=== PATIENT | male | born 1940 | race Caucasian/White ===

== ENCOUNTER 2016-05-10 19:58 | Observation (INO) ==
[2016-05-10] MEDS ORDERED: 0.9 % Sodium Chloride 500 ML IVC ONE (20:59)
[2016-05-10] MEDS ORDERED: Lidocaine Jelly 11 ml Syringe TP ONE (21:21)
--- NOTE | 2016-05-10 21:39 | Emergency Department Note ---
Disposition Clinical Impression: Hematuria, Urinary retention Disposition: Admitted As Inpatient Condition: Good Male Urogenital HPI - General Chief complaint: ED Urogenital-Male Stated complaint: Blood clots in urine Time Seen by Provider: 05/10/16 20:11 Source: patient Mode of arrival: private vehicle Limitations: no limitations Nursing Notes Reviewed: Yes Vital Signs Reviewed: Yes - History of Present Illness HPI Narrative: 75-year-old male history of recently diagnosed bladder cancer who presents to the ER with a chief complaint of difficulty voiding and hematuria. Patient reports he has had difficulty initiating a stream since this morning. He states he was able to pass a small amount at home but was otherwise passing clots. He reports he was diagnosed with bladder cancer after having a scope to try to extract a kidney stone. Patient has had chemotherapy Gonzalez treatments but has not started weekly chemotherapy yet. He denies being on any anticoagulation. No history of easy bleeding in the past. No other complaints. Pt Subjective Complaint: other (Hematuria) Onset (ago): hour(s) Duration: intermittent Radiation: abdomen (Suprapubic) Severity: mild Quality: aching Improves with: none Worsens with: none other (Bladder cancer) Reports: urinary retention, hematuria. Denies: discharge, dysuria - Related Data Home Medications Medication Instructions Recorded Confirmed Glucosamine/D3/Boswellia Cris 1 each PO DAILY 03/09/16 05/11/16 [Osteo Bi-Flex Tablet] Lansoprazole [Prevacid] 30 mg PO DAILY 03/09/16 05/11/16 Metformin HCl [Glucophage] 1,000 mg PO BID 03/09/16 05/11/16 Multivitamin [Multi-Day Vitamins] 1 each PO DAILY 03/09/16 05/11/16 Polyethylene Glycol 3350 [MiraLAX] 17 gm PO DAILY 03/09/16 05/11/16 Ubidecarenone [Co Q-10] 100 mg PO DAILY 03/09/16 05/11/16 Gabapentin [Neurontin] 300 mg PO TID 04/20/16 05/11/16 Glimepiride [Amaryl] 4 mg PO DAILY 04/20/16 05/11/16 Lisinopril [Zestril] 20 mg PO DAILY 04/20/16 05/11/16 Red Yeast Rice 600 mg PO DAILY 04/20/16 05/11/16 Previous Rx's Medication Instructions Recorded HYDROcodone/Acet 5/325 mg [[place] 2 tab PO Q4H PRN #16 tablet 04/20/16 5-325 mg] Oxybutynin [Ditropan] 5 mg PO TID PRN #90 tablet 05/12/16 Allergies Allergy/AdvReac Type Severity Reaction Status Date / Time Penicillins Allergy Hives Verified 05/10/16 20:03 All systems ED: reviewed and negative except as stated. Cardiovascular: Denies: chest pain Respiratory: Denies: cough, dyspnea Gastrointestinal: Reports: abdominal pain (Suprapubic). Denies: nausea, vomiting, melena, hematochezia Genitourinary: Reports: frequency (Decreased frequency), hematuria, other ( Urinary retention) Past Medical History - Past Medical History Attestation: Yes The following information was validated with the patient. Source: patient Medical history: Reports: cancer, diabetes, GERD, hyperlipidemia, hypertension, kidney stones, other Surgical history: Reports: cataract Psychiatric history: Reports: no psych history - Social History Smoking Status: Never smoker Smokeless Tobacco Status: No Alcohol use: Reports: none Drug use: Reports: none Physical Exam - General Limitations: no limitations General appearance: alert, in no apparent distress - Head Head exam: atraumatic, normocephalic, normal inspection - Eye Eye exam: Present: normal appearance, EOMI - ENT ENT exam: normal exam - Neck Neck exam: Present: normal inspection - Chest Chest inspection: Present: normal inspection, symmetric chest wall rise - Respiratory Respiratory exam: Present: normal lung sounds bilaterally - Cardiovascular Cardiovascular exam: Present: regular rate, normal rhythm, normal heart sounds - Abdominal Exam Abdominal Exam: Present: soft, tenderness (Mild tenderness to palpation in the suprapubic region.). Absent: distention, rigidity Abdominal Tenderness: Present: suprapubic - Extremities Exam Extremities exam: Present: normal inspection, full ROM - Expanded Upper Extremity Exam Shoulder exam: Present: normal inspection, full ROM Arm exam: Present: normal inspection, full ROM Elbow exam: Present: normal inspection, full ROM Forearm/Wrist exam: Present: normal inspection, full ROM Hand exam: Present: normal inspection, full ROM - Expanded Lower Extremity Exam Hip/Pelvis exam: Present: normal inspection, full ROM Upper leg exam: Present: normal inspection, full ROM Knee exam: Present: normal inspection, full ROM Lower leg exam: Present: normal inspection, full ROM Ankle exam: Present: normal inspection, full ROM Foot/toe exam: Present: normal inspection, full ROM - Neurological Exam Neurological exam: Present: alert - Psychiatric Psychiatric exam: Present: normal affect, normal mood - Skin Skin exam: Present: warm, dry, intact, normal color Course Course Narrative: Patient seen and examined. Vital signs reviewed. Bedside ultrasound demonstrates a mass versus clot in his bladder. Patient was unable to produce any urine here with 3 mL of sanguinous fluid. We will place a 3-way Gonzalez and discuss with urology for further management. - Reevaluation(s) Reevaluation #1: After 3 L of bladder irrigation patient still has grossly bloody urine output. His urinalysis does not show UTI. - Consultations Consultation #1: Case discussed with the on-call urologist Dr. Balbuena. After placing a three- way Gonzalez and copious irrigation the patient continues to have grossly bloody urine. He agrees to see the patient in the morning and to admit to the hospitalist service. Vital Signs Temperature 97.9 F 05/10/16 20:03 Pulse Rate 102 05/10/16 20:03 Respiratory Rate 20 05/10/16 20:03 Blood Pressure 160/90 05/10/16 20:03 O2 Sat by Pulse Oximetry 97 05/10/16 20:03 Temperature 97.5 F L 05/12/16 11:06 Pulse Rate 75 05/12/16 11:06 Respiratory Rate 16 05/12/16 11:06 Blood Pressure 100/69 05/12/16 11:06 O2 Sat by Pulse Oximetry 93 05/12/16 11:06 Oxygen Delivery Oxygen Delivery Room Air Urogenital-Male - MDM Narrative Medical decision making narrative: 75-year-old male presents to the ER due to inability to urinate and passing clots. He has a history of bladder cancer. Patient had grossly bloody urine here. Three-way Gonzalez was placed and bladder was irrigated. After clamping he continued to have grossly bloody urine. Urology was consulted in the emergency department and requested admission to the hospitalist service. Patient admitted to the hospitalist service. - Lab Data Lab results reviewed: Yes I reviewed the patient's lab results. Result diagrams: 05/11/16 08:07 05/11/16 08:07 Lab Results 04/0505/10/16 05/10/16 Range/Units 21:30 21:30 21:30 WBC 8.6 (4.3-11.1) K/mcL RBC 4.33 (4.19-5.50) M/mcL Hgb 13.5 (12.9-16.9) g/dL Hct 39.1 (37.5-50.1) % MCV 90.3 (83.0-100.0) fL MCH 31.2 (28.0-33.3) pg MCHC 34.5 (31.6-35.5) g/dL RDW 11.9 (11.5-14.5) % Plt Count 207 (140-400) K/mcL MPV 9.5 (9.4-12.4) fL Immature Gran % 0.2 (0-4) % Seg Neutrophils % 55.5 % Lymphocytes % 30.9 % Monocytes % 11.0 % Eosinophils % 1.9 % Basophils % 0.5 % Neutrophils # 4.8 (1.6-8.9) K/mcL Lymphocytes # 2.7 (0.6-4.6) K/mcL Monocytes # 1.0 (0.0-1.3) K/mcL Eosinophils # 0.2 (0.0-0.6) K/mcL Basophils # 0.0 (0.0-0.2) K/mcL PT 10.7 (9.4-12.1) Seconds INR 1.0 Sodium 139 (136-145) mEq/L Potassium 4.3 (3.5-4.5) mEq/L Chloride 105 (98-109) mEq/L Carbon Dioxide 24 (19-29) mEq/L BUN 21 (8-26) mg/dL Creatinine 0.87 (0.72-1.25) mg/dL Est GFR ( Amer) > 60 (> 60) Est GFR (Non-Af Amer) > 60 (> 60) BUN/Creatinine Ratio 24 (6-26) Glucose 159 H (70-99) mg/dL Calculated Osmolality 294 (280-300) Calcium 9.6 (8.6-10.8) mg/dL Urine Color (Yellow) Urine Clarity (Clear) Urine pH (5.0-8.0) pH Units Ur Specific [place] (1.010-1.025) Urine Protein (Neg-Trace) mg/dL Urine Glucose (UA) (Normal) mg/dL Urine Ketones (Negative) mg/dL Urine Blood (Negative) Urine Nitrite (Negative) Urine Bilirubin (Negative) Urine Urobilinogen (Normal) mg/dL Ur Leukocyte Esterase (Negative) Ur Culture Indicated? (NO) 05/11/16 Range/Units 00:17 WBC (4.3-11.1) K/mcL RBC (4.19-5.50) M/mcL Hgb (12.9-16.9) g/dL Hct (37.5-50.1) % MCV (83.0-100.0) fL MCH (28.0-33.3) pg MCHC (31.6-35.5) g/dL RDW (11.5-14.5) % Plt Count (140-400) K/mcL MPV (9.4-12.4) fL Immature Gran % (0-4) % Seg Neutrophils % % Lymphocytes % % Monocytes % % Eosinophils % % Basophils % % Neutrophils # (1.6-8.9) K/mcL Lymphocytes # (0.6-4.6) K/mcL Monocytes # (0.0-1.3) K/mcL Eosinophils # (0.0-0.6) K/mcL Basophils # (0.0-0.2) K/mcL PT (9.4-12.1) Seconds INR Sodium (136-145) mEq/L Potassium (3.5-4.5) mEq/L Chloride (98-109) mEq/L Carbon Dioxide (19-29) mEq/L BUN (8-26) mg/dL Creatinine (0.72-1.25) mg/dL Est GFR ( Amer) (> 60) Est GFR (Non-Af Amer) (> 60) BUN/Creatinine Ratio (6-26) Glucose (70-99) mg/dL Calculated Osmolality (280-300) Calcium (8.6-10.8) mg/dL Urine Color Red A (Yellow) Urine Clarity Cloudy A (Clear) Urine pH 6.0 (5.0-8.0) pH Units Ur Specific [place] 1.018 (1.010-1.025) Urine Protein >=300 H (Neg-Trace) mg/dL Urine Glucose (UA) 100 H (Normal) mg/dL Urine Ketones Negative (Negative) mg/dL Urine Blood Large H (Negative) Urine Nitrite Negative (Negative) Urine Bilirubin Negative (Negative) Urine Urobilinogen Normal (Normal) mg/dL Ur Leukocyte Esterase Negative (Negative) Ur Culture Indicated? NO (NO) S.B.A.R. - S.B.A.R. Situation: Demographics, MOA Background: Presenting Complaint, Relevant PMH, Meds, & Allergies Assessment: Vital Signs, Course and respsone to treatment, Exam Concerns, Patient/Family Expectation, Pertinant Lab Results, Outstanding Labs Recommendation: Barrier(s) to disposition, Recommendation based on pending studies, treatments, or consults S.B.A.R. Report Given to: Dr. Mendez Attestation Statement - Attestation Attestation: I, Mega Garnett, examined this patient and my medical decision-making was reviewed with the [employer] MAN/PA/Advanced Practice Nurse/Resident Physician. I agree with the documented findings, disposition and treatment plan as described except to the extent set forth below. 75-year-old male presents with concerns of hematuria. Patient states he noticed gross hematuria this morning while trying to urinate. He has a urgent to urinate however is unable to produce more than a few cc at a time. He now has suprapubic pain. On one episode of trying to urinate he had seen blood clots mixed in with the urine. A three-way Gonzalez was placed and 3 L of fluid flush out the bladder. After clamping the Gonzalez for a period of time, the patient again had gross hematuria. Resident spoke with the urologist, Dr. Balbuena, who requested admission to the hospitalists. Patient admitted to the hospitalist for further care and evaluation. Vital signs stable.
[2016-05-10 21:47] LABS: Basophils % 0.5 %; Eosinophils # 0.2 K/mcL (0.0-0.6); Eosinophils % 1.9 %; Hematocrit 39.1 % (37.5-50.1); Hemoglobin 13.5 g/dL (12.9-16.9); Immature Granulocytes % 0.2 % (0-4); Lymphocytes # 2.7 K/mcL (0.6-4.6); Lymphocytes % 30.9 %; Mean Corpuscular HGB Conc 34.5 g/dL (31.6-35.5); Mean Corpuscular Hemoglobin 31.2 pg (28.0-33.3); Mean Corpuscular Volume 90.3 fL (83.0-100.0); Mean Platelet Volume 9.5 fL (9.4-12.4); Neutrophils # 4.8 K/mcL (1.6-8.9); Platelet Count 207 K/mcL (140-400); Red Blood Count 4.33 M/mcL (4.19-5.50); Red Cell Distribution Width 11.9 % (11.5-14.5); Segmented Neutrophils % 55.5 %
[2016-05-10 21:57] LABS: Prothrombin Time 10.7 Seconds (9.4-12.1)
[2016-05-10 22:00] LABS: BUN/Creatinine Ratio 24 (6-26); Blood Urea Nitrogen 21 mg/dL (8-26); Calcium 9.6 mg/dL (8.6-10.8); Carbon Dioxide 24 mEq/L (19-29); Chloride 105 mEq/L (98-109); Glucose 159 mg/dL (70-99); Osmolality,Calculated 294 (280-300); Potassium 4.3 mEq/L (3.5-4.5); Sodium 139 mEq/L (136-145); eGFR For African Americans > 60 (> 60); eGFR For Non-African Americans > 60 (> 60)
[2016-05-11 00:38] LABS: Bilirubin,Urine Negative (Negative); Blood,Urine Large (Negative); Clarity,Urine Cloudy (Clear); Glucose,Urine (UA) 100 mg/dL (Normal); Ketones,Urine Negative (Negative); Leukocyte Esterase,Urine Negative (Negative); Nitrite,Urine Negative (Negative); Protein,Urine >=300 mg/dL (Neg-Trace); Specific Gravity,Urine 1.018 (1.010-1.025); Urobilinogen,Urine Normal (Normal)
[2016-05-11 00:39] LABS: Color,Urine Red (Yellow)
[2016-05-11] MEDS ORDERED: D5% in Water 1,000 ML IVC PRN (06:22)
[2016-05-11] MEDS ORDERED: Acetaminophen 325 MG TABLET PO PRN (06:22)
[2016-05-11] MEDS ORDERED: *HR* Morphine 2 MG/ML SYRINGE IVP PRN (06:22)
[2016-05-11] MEDS ORDERED: Ondansetron 4 MG/2 ML VIAL IVP PRN (06:22)
[2016-05-11] MEDS ORDERED: Naloxone 0.4 MG/ML INJ IVP PRN (06:22)
[2016-05-11] MEDS ORDERED: *HR* OxyCODONE Immed Rel 5 MG TABLET PO PRN ×2 (06:22→08:24)
[2016-05-11] MEDS ORDERED: *HR* Dextrose 50 % in Water (Syg) 50 ML SYRINGE IVP PRN (06:22)
[2016-05-11] MEDS ORDERED: Dextrose Gel 15 GM PO PRN ×2 (06:22)
--- NOTE | 2016-05-11 06:32 | Internal Med History&Physical ---
Date of Encounter: 05/11/16 Time of Encounter: 06:28 Assessment and Plan (1) Gross hematuria Current visit: Yes Status: Acute 1. Bladder irrigation placed in ER per urology. 2. Consult urology. 3. Monitor CBC for blood loss. (2) Diabetes type 2, controlled Current visit: Yes Status: Chronic 1. Hold oral home meds. 2. Will use SSI and monitor/adjust as needed. Qualifiers: Diabetes mellitus complication status: without complication Diabetes mellitus fci insulin use: without ad terminal makeup operator use Qualified Code(s): E11.9 - Type 2 diabetes mellitus without complications (3) Bladder cancer Current visit: No Status: Acute 1. Patient follow with urology and HEM/ONC. 2. Follow up with HEM/ONC as scheduled. Qualifiers: Bladder location: unspecified site Qualified Code(s): C67.9 - Malignant neoplasm of bladder, unspecified (4) DVT prophylaxis Current visit: Yes Status: Acute 1. EPCD's. 2. No anti-coagulation due to active bleed. Internal Medicine - H&P: HPI Chief complaint: bloody urine; difficulty voiding Admitted From: Emergency Dept Plans for Post Hospital Care: Home History of present illness: Mr. William is a 75 year old male who presents with sudden onset of difficulty urinating, bloody urine, and passing small clots of blood in his urine yesterday. In the ER, he did have gross hematuria and urinalysis which was negative other than urine sample consistent with blood. He had a Gonzalez catheter placed and was initiated on bladder irrigation per urology protocol. Dr. Balbuena was contacted, and he recommended admission to the hospitalist service with consultation to urology. Upon my assessment of the patient, he has no complaints other than some mild pain. He denies any fevers, vomiting, diarrhea, or nausea. He denies any abdominal pain. He denies any flank pain. He does have a history of kidney stones and this pain is different than his kidney stone pain. Of note, patient had recent cystoscopy for his kidney stones and he was diagnosed with bladder cancer during cystoscopy. He has since undergone 1 round of bladder chemotherapy treatments. He does not take any blood thinners but he is on a daily aspirin for coronary disease prophylaxis. Past Med Surg Social Fam HX - Past Medical History Attestation: Yes The following information was validated with the patient. Source: patient, old records reviewed, obtained from family Medical history: cancer, diabetes, GERD, hyperlipidemia, hypertension, kidney stones Psychiatric history: no psych history - Past Surgical History Surgical History: cataract - Social History Smoking Status: Never smoker Smokeless Tobacco Status: No Alcohol use: none Drug use: none Current living situation: Home, With Family Activity Level: Independent ambulation - Family History Father Adopted: No Family Member Ethnicity: Non- Living Status: Age at : 79 Cause of : prostate cancer Hx Family Cardiac Disorders: No Hx Family Respiratory Disorders: No Hx Family Cancer: Yes (prostate cancer) Hx Family GI Disorders: No Hx Family Endocrine Disorder: Yes (mother--diabetes) Hx Family Neuromuscular Disorders: No Hx Family Neurologic Disorders: No Hx Family HEENT Disorders: No Hx Family Autoimmune Disorders: No Mother Living Status: Age at : 81 Cause of : colon cancer Hx Family Cardiac Disorders: Yes (Hypertension) Hx Family Cancer: Yes (colon) Hx Family Endocrine Disorder: Yes (diabetes) Internal Medicine - H&P: Meds Docusate Sodium [Colace] 100 mg PO BID #20 capsule 09/02/15 [Rx] Aspirin Enteric Coated [Aspirin EC] 81 mg PO DAILY 03/09/16 [History] Glucosamine/D3/Boswellia Cris [Osteo Bi-Flex Tablet] 1 each PO DAILY 03/09/16 [ History] Lansoprazole [Prevacid] 30 mg PO DAILY 03/09/16 [History] Metformin HCl [Glucophage] 1,000 mg PO BID 03/09/16 [History] Multivitamin [Multi-Day Vitamins] 1 each PO DAILY 03/09/16 [History] Polyethylene Glycol 3350 [MiraLAX] 17 gm PO DAILY 03/09/16 [History] Ubidecarenone [Co Q-10] 100 mg PO DAILY 03/09/16 [History] Gabapentin [Neurontin] 300 mg PO TID 04/20/16 [History] Glimepiride [Amaryl] 4 mg PO DAILY 04/20/16 [History] HYDROcodone/Acet 5/325 mg [[place] 5-325 mg] 2 tab PO Q4H PRN #16 tablet 04/20/16 [Rx] Lisinopril [Zestril] 20 mg PO DAILY 04/20/16 [History] Red Yeast Rice 600 mg PO DAILY 04/20/16 [History] Allergies Penicillins Allergy (Verified 05/10/16 20:03) Hives - Constitutional Constitutional: no chills, no fever(s), no night sweats - EENT Eyes: no blurry vision, no change in vision Ears: no ear pain, no tinnitus Nose, mouth and throat: no nasal congestion, no sinus pain, no sore throat - Cardiovascular Cardiovascular ROS IM: no chest pain, no dyspnea, no dyspnea on exertion, no edema - Respiratory Respiratory: no cough, no dyspnea, no hemoptysis, no wheezing - Gastrointestinal Gastrointestinal: no abdominal pain, no diarrhea, no hematemesis, no hematochezia, no vomiting - Genitourinary Genitourinary ROS male: difficulty urinating, hematuria, no dysuria, no flank pain, no genital pain - Musculoskeletal Musculoskeletal ROS IM: arthralgias, back pain - Integumentary Integumentary IM: no rash, no jaundice - Neurological Neurological ROS: no dizziness, no focal weakness, no frequent falls - Psychiatric Psychiatric: no anxiety, no depression - Endocrine Endocrine IM: no polydipsia, no polyuria - Hematologic/Lymphatic Hematologic/Lymphatic: no easy bruising, no lymphadenopathy - Allergic/Immunologic Allergic/Immunologic: no wheezing, no GI upset with certain foods - Constitutional Vitals: Temp Pulse Resp BP Pulse Ox 98.2 F 76 16 133/74 95 05/11/16 04:31 05/11/16 04:31 05/11/16 04:31 05/11/16 04:31 05/11/16 04:31 General appearance: Present: cooperative, A&O X 3, pleasant, answers questions appropriately - Head Head exam: Present: atraumatic, normocephalic - Expanded Head Exam Head exam expanded: Absent: abrasion, contusion, general tenderness - Eye Eye exam: Present: EOMI, normal appearance. Absent: PERRL, scleral icterus Pupils: Present: normal accommodation - ENT ENT exam: Present: normal exam. Absent: mucous membranes moist - Neck Neck exam general surgery: Present: full ROM, supple. Absent: lymphadenopathy, tenderness - Respiratory Respiratory exam: Present: CTAB. Absent: rales, rhonchi, wheezes - Cardiovascular Cardiovascular exam: Present: RRR, +S1, +S2. Absent: JVD - GI/Abdominal GI/Abdominal exam: Present: normal bowel sounds, soft. Absent: guarding, mass, splenomegaly, tenderness - Additional comments: Gonzalez in place with bladder irrigation - Extremities Exam Extremities exam: Present: full ROM, warm. Absent: calf tenderness, joint swelling, pedal edema - Back Exam Back exam: Present: normal inspection. Absent: CVA tenderness (L), CVA tenderness (R) - Neurological Exam Neurological exam: Present: alert, CN II-XII intact, oriented X3, no focal deficits - Psychiatric Psychiatric exam: Present: normal affect, normal mood - Skin Skin exam: Present: dry, warm. Absent: rash Internal Med - H&P Results - Labs CBC & Chem 7: 05/10/16 21:30 05/10/16 21:30
[2016-05-11] MEDS: 0.9 % Sodium Chloride 1,000 ML IVC SCH ×2 (06:48→16:36)
--- NOTE | 2016-05-11 06:55 | Urology - Consult Note ---
Date of Encounter: 05/11/16 Time of Encounter: 06:53 - Assessment and Plan (1) Hematuria Current Visit: Yes Status: Acute Assessment and plan: I irrigated by hand a small amount of clot. The urine became clear afterwards. CBI was resumed. Continue CBI today. Will discuss with Dr. Menard. Anticipate observing today and then potential d/c home with catheter tomorrow. 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 (2) Bladder cancer Current Visit: No Status: Acute Assessment and plan: Stable now. BCG in the future. Qualifiers: Bladder location: unspecified site Qualified Code(s): C67.9 - Malignant neoplasm of bladder, unspecified Urology CN:HPI Consult date: 05/11/16 Reason for consult Urology: Gross Hematuria Requesting physician: James Alas History of present illness: 75 year old man status post circumcsion and TURBT from 04/20/2016. He has low grade Ta bladder cancer. Yesterday he noted some blood clots and had difficulty voiding. He was not able to urinate and small clots came out. He began to have suprapubic pain. He presented to the ER. A [address] catheter was placed. No hand irrigation was performed. He was placed on CBI. His urine remained somewhat bloody and he was admitted. He is having some bladder spasms. He says his circumcision wound is healing well. Past Med Surg Social Fam HX - Past Medical History Medical history: cancer, diabetes, GERD, hyperlipidemia, hypertension, kidney stones Psychiatric history: no psych history - Past Surgical History Surgical History: cataract - Social History Smoking Status: Never smoker Smokeless Tobacco Status: No Alcohol use: none Drug use: none - Family History Father Adopted: No Family Member Ethnicity: Non- Living Status: Age at : 79 Cause of : prostate cancer Hx Family Cardiac Disorders: No Hx Family Respiratory Disorders: No Hx Family Cancer: Yes (prostate cancer) Hx Family GI Disorders: No Hx Family Endocrine Disorder: Yes (mother--diabetes) Hx Family Neuromuscular Disorders: No Hx Family Neurologic Disorders: No Hx Family HEENT Disorders: No Hx Family Autoimmune Disorders: No Mother Living Status: Age at : 81 Cause of : colon cancer Hx Family Cardiac Disorders: Yes (Hypertension) Hx Family Cancer: Yes (colon) Hx Family Endocrine Disorder: Yes (diabetes) Medications and Allergies Docusate Sodium [Colace] 100 mg PO BID #20 capsule 09/02/15 [Rx] Aspirin Enteric Coated [Aspirin EC] 81 mg PO DAILY 03/09/16 [History] Glucosamine/D3/Boswellia Cris [Osteo Bi-Flex Tablet] 1 each PO DAILY 03/09/16 [ History] Lansoprazole [Prevacid] 30 mg PO DAILY 03/09/16 [History] Metformin HCl [Glucophage] 1,000 mg PO BID 03/09/16 [History] Multivitamin [Multi-Day Vitamins] 1 each PO DAILY 03/09/16 [History] Polyethylene Glycol 3350 [MiraLAX] 17 gm PO DAILY 03/09/16 [History] Ubidecarenone [Co Q-10] 100 mg PO DAILY 03/09/16 [History] Gabapentin [Neurontin] 300 mg PO TID 04/20/16 [History] Glimepiride [Amaryl] 4 mg PO DAILY 04/20/16 [History] HYDROcodone/Acet 5/325 mg [[place] 5-325 mg] 2 tab PO Q4H PRN #16 tablet 04/20/16 [Rx] Lisinopril [Zestril] 20 mg PO DAILY 04/20/16 [History] Red Yeast Rice 600 mg PO DAILY 04/20/16 [History] Allergies Penicillins Allergy (Verified 05/10/16 20:03) Hives Review of Systems - Constitutional no chills, no fever(s) - EENT Nose, mouth and throat: no dizziness - Cardiovascular no chest pain - Respiratory no dyspnea - Gastrointestinal no nausea, no vomiting - Genitourinary hematuria, no flank pain - Musculoskeletal no back pain - Integumentary no erythema, no rash - Neurological no weakness - Psychiatric no suicidal ideation - Hematologic/Lymphatic no easy bleeding - Allergic/Immunologic no wheezing Exam Initial Vital Signs Temp Pulse Resp BP Pulse Ox 97.9 F 102 20 160/90 97 05/10/16 20:03 05/10/16 20:03 05/10/16 20:03 05/10/16 20:03 05/10/16 20:03 - General physical appearance Present: well developed, well nourished, no distress - Eyes Absent: icteric - ENT Present: normal nares - Neck Present: trachea midline - Respiratory Present: normal respiratory effort - Cardiovascular Cardiovascular exam IM: RRR - Abdomen Abdomen: Present: soft - Genitourinary other (circumcision wound healing well. [address] on CBI. Urine light pink) Urology Results - Labs 05/10/16 21:30 05/10/16 21:30 Abnormal lab results Glucose 159 mg/dL (70-99) H 05/10/16 21:30 POC Glucose 125 (58-89) H 05/11/16 05:47 Urine Color Red (Yellow) A 05/11/16 00:17 Urine Clarity Cloudy (Clear) A 05/11/16 00:17 Urine Protein >=300 mg/dL (Neg-Trace) H 05/11/16 00:17 Urine Glucose (UA) 100 mg/dL (Normal) H 05/11/16 00:17 Urine Blood Large (Negative) H 05/11/16 00:17 All other labs normal. Consult Discharge Plan - Plan Referrals: Rich Spivey MD [Primary Care Provider] -
[2016-05-11] MEDS: Insulin LISPRO 300 UNITS/3 ML VIAL SQ SCH ×3 (08:19→16:35)
[2016-05-11 08:39] LABS: Basophils % 0.3 %; Eosinophils # 0.1 K/mcL (0.0-0.6); Eosinophils % 1.1 %; Hematocrit 37.2 % (37.5-50.1); Hemoglobin 12.9 g/dL (12.9-16.9); Immature Granulocytes % 0.4 % (0-4); Lymphocytes # 2.3 K/mcL (0.6-4.6); Lymphocytes % 19.2 %; Mean Corpuscular HGB Conc 34.7 g/dL (31.6-35.5); Mean Corpuscular Hemoglobin 31.8 pg (28.0-33.3); Mean Corpuscular Volume 91.6 fL (83.0-100.0); Mean Platelet Volume 9.9 fL (9.4-12.4); Monocytes % 8.6 %; Neutrophils # 8.2 K/mcL (1.6-8.9); Platelet Count 185 K/mcL (140-400); Red Blood Count 4.06 M/mcL (4.19-5.50); Red Cell Distribution Width 12.1 % (11.5-14.5); Segmented Neutrophils % 70.4 %
[2016-05-11 10:35] LABS: Hemoglobin A1C 5.9 %
[2016-05-11 10:48] LABS: Alanine Aminotransferase 15 Units/L (0-55); Albumin 3.5 g/dL (3.5-5.0); Albumin/Globulin Ratio 1.2 (1.1-2.2); Alkaline Phosphatase 67 Units/L (38-126); Aspartate Amino Transferase 15 Units/L (5-34); BUN/Creatinine Ratio 22 (6-26); Bilirubin,Total 0.4 mg/dL (0.2-1.2); Blood Urea Nitrogen 18 mg/dL (8-26); Calcium 9.3 mg/dL (8.6-10.8); Carbon Dioxide 20 mEq/L (19-29); Chloride 105 mEq/L (98-109); Glucose 142 mg/dL (70-99); Magnesium 1.3 mg/dL (1.6-2.6); Osmolality,Calculated 288 (280-300); Potassium 4.6 mEq/L (3.5-4.5); Sodium 137 mEq/L (136-145); Total Protein 6.5 g/dL (6.0-8.3); eGFR For African Americans > 60 (> 60); eGFR For Non-African Americans > 60 (> 60)
[2016-05-11] MEDS: Lisinopril 20 MG TABLET PO SCH (11:59)
[2016-05-11] MEDS: *HR* HYDROcodone/Acet 5/325 mg TABLET PO PRN ×3 (11:59→21:16)
[2016-05-11] MEDS: Gabapentin 300 MG CAPSULE PO SCH ×3 (12:26→20:30)
[2016-05-12] MEDS: 0.9 % Sodium Chloride 1,000 ML IVC SCH (02:14)
[2016-05-12] MEDS: *HR* HYDROcodone/Acet 5/325 mg TABLET PO PRN ×2 (02:34→06:40)
--- NOTE | 2016-05-12 07:10 | Urology Progress Note ---
Date of Encounter: 05/12/16 Time of Encounter: 07:09 - Assessment and Plan (1) Gross hematuria Current Visit: Yes Status: Acute Assessment and plan: catheter removed. ok to to dc from urology standpoint once patient has voided. Progress Note Narrative: patient seen. did well overnight with clear urine. no more spasms. Objective Initial Vital Signs Temp Pulse Resp BP Pulse Ox 97.9 F 102 20 160/90 97 05/10/16 20:03 05/10/16 20:03 05/10/16 20:03 05/10/16 20:03 05/10/16 20:03 - General physical appearance Present: well developed - Abdomen Present: soft - Genitourinary Present: other (urine clear) - Labs 05/11/16 08:07 05/11/16 08:07 Diabetes panel 05/11/16 05/11/16 Range/Units 08:07 08:07 Sodium 137 (136-145) mEq/L Potassium 4.6 H (3.5-4.5) mEq/L Chloride 105 (98-109) mEq/L Carbon Dioxide 20 (19-29) mEq/L BUN 18 (8-26) mg/dL Creatinine 0.81 (0.72-1.25) mg/dL Glucose 142 H (70-99) mg/dL Hemoglobin A1c 5.9 H ( - 5.6) % Calcium 9.3 (8.6-10.8) mg/dL AST 15 (5-34) Units/L ALT 15 (0-55) Units/L Alkaline Phosphatase 67 (38-126) Units/L Albumin 3.5 (3.5-5.0) g/dL Calcium panel 05/11/16 Range/Units 08:07 Calcium 9.3 (8.6-10.8) mg/dL Albumin 3.5 (3.5-5.0) g/dL Pituitary panel 05/11/16 Range/Units 08:07 Sodium 137 (136-145) mEq/L Potassium 4.6 H (3.5-4.5) mEq/L Chloride 105 (98-109) mEq/L Carbon Dioxide 20 (19-29) mEq/L BUN 18 (8-26) mg/dL Creatinine 0.81 (0.72-1.25) mg/dL Glucose 142 H (70-99) mg/dL Calcium 9.3 (8.6-10.8) mg/dL Adrenal panel 05/11/16 Range/Units 08:07 Sodium 137 (136-145) mEq/L Potassium 4.6 H (3.5-4.5) mEq/L Chloride 105 (98-109) mEq/L Carbon Dioxide 20 (19-29) mEq/L BUN 18 (8-26) mg/dL Creatinine 0.81 (0.72-1.25) mg/dL Glucose 142 H (70-99) mg/dL Calcium 9.3 (8.6-10.8) mg/dL Total Bilirubin 0.4 (0.2-1.2) mg/dL AST 15 (5-34) Units/L ALT 15 (0-55) Units/L Alkaline Phosphatase 67 (38-126) Units/L Albumin 3.5 (3.5-5.0) g/dL - VTE Documentation of Mechanical Device: Intermittent pneumatic compression device Consult Discharge Plan - Plan Referrals: Rich Spivey MD [Primary Care Provider] - 05/23/16 2:30 pm
[2016-05-12] MEDS: Insulin LISPRO 300 UNITS/3 ML VIAL SQ SCH ×2 (07:37→11:37)
[2016-05-12] MEDS: Gabapentin 300 MG CAPSULE PO SCH (08:30)
[2016-05-12] MEDS: Lisinopril 20 MG TABLET PO SCH (08:31)
[2016-05-12 11:07] VITALS: BP 100/69
--- NOTE | 2016-05-12 12:45 | Discharge Summary ---
Date of Encounter: 05/12/16 Time of Encounter: 12:40 - Discharge Diagnosis (1) Bladder cancer Priority: Secondary Status: Acute Qualifiers: Bladder location: unspecified site Qualified Code(s): C67.9 - Malignant neoplasm of bladder, unspecified (2) Urinary retention Priority: Primary Status: Acute (3) Gross hematuria Priority: Secondary Status: Acute (4) Diabetes type 2, controlled Priority: Secondary Status: Chronic Qualifiers: Diabetes mellitus complication status: without complication Diabetes mellitus care home insulin use: without vaccine manager use Qualified Code(s): E11.9 - Type 2 diabetes mellitus without complications - Discharge Medications Prescriptions: Oxybutynin [Ditropan] 5 mg PO TID PRN #90 tablet PRN Reason: bladder spasm Home Medications: Glucosamine/D3/Boswellia Cris [Osteo Bi-Flex Tablet] 1 each PO DAILY 03/09/16 [ History] Lansoprazole [Prevacid] 30 mg PO DAILY 03/09/16 [History] Metformin HCl [Glucophage] 1,000 mg PO BID 03/09/16 [History] Multivitamin [Multi-Day Vitamins] 1 each PO DAILY 03/09/16 [History] Polyethylene Glycol 3350 [MiraLAX] 17 gm PO DAILY 03/09/16 [History] Ubidecarenone [Co Q-10] 100 mg PO DAILY 03/09/16 [History] Gabapentin [Neurontin] 300 mg PO TID 04/20/16 [History] Glimepiride [Amaryl] 4 mg PO DAILY 04/20/16 [History] HYDROcodone/Acet 5/325 mg [[place] 5-325 mg] 2 tab PO Q4H PRN #16 tablet 04/20/16 [Rx] Lisinopril [Zestril] 20 mg PO DAILY 04/20/16 [History] Red Yeast Rice 600 mg PO DAILY 04/20/16 [History] Oxybutynin [Ditropan] 5 mg PO TID PRN #90 tablet 05/12/16 [Rx] Allergies/Adverse Reactions: Allergies Penicillins Allergy (Verified 05/10/16 20:03) Hives Date of admission: 05/11/16 00:56 Primary care physician: Rich Spivey, Consults: 05/11/16 06:24 Consult to Physician [CONS] Routine Consulting Provider: Luis Balbuena Reason for Consult: gross hematuria/bladder tumor Call Completed: No - Patient Status Disposition: Home, Self-Care Condition: Good Functional capacity at discharge: independent ambulation Overall status at discharge: patient is back to baseline - Discharge Instructions Follow Up With: Rich Spivey MD [Primary Care Provider] - 05/23/16 2:30 pm Luis Balbuena MD [Partnered Physician] - - Diet and Activity Activity: increase activity as tolerated Diet: diabetic diet, low salt diet Hospital course: Mr. William is a 75 year old male who presented with sudden onset of difficulty urinating, bloody urine, and passing small clots of blood in his urine yesterday. In the ER, he did have gross hematuria and urinalysis which was negative other than urine sample consistent with blood. He had a Gonzalez catheter placed and was initiated on bladder irrigation per urology protocol. Dr. Balbuena was contacted, and he recommended admission to the hospitalist service with consultation to urology. The patient was admitted to medical service. He continued treatment with continued bladder irrigation for 24 hours. He was reevaluated by urology and his Gonzalez catheter was discontinued. His urine has cleared. He reported no further hematuria and he has been able to urinate on his own this morning. He denies back pain and suprapubic pain. His aspirin will be placed on hold for now due to recent gross hematuria. He will be discharged home. - Time Spent with Patient Total time spent providing and/or coordinating discharge services: - Constitutional Vitals: Temp Pulse Resp BP Pulse Ox 97.5 F L 75 16 100/69 93 05/12/16 11:06 05/12/16 11:06 05/12/16 11:06 05/12/16 11:06 05/12/16 11:06 General appearance: Present: cooperative, A&O X 3, pleasant, answers questions appropriately - Cardiovascular Cardiovascular exam: Present: RRR, +S1, +S2. Absent: diastolic murmur, gallop, rubs, systolic murmur - GI/Abdominal GI/Abdominal exam: Present: soft. Absent: distended, tenderness - Extremities Exam Extremities exam: Absent: pedal edema - Skin Skin exam: Present: dry, intact - VTE Documentation of Mechanical Device: Intermittent pneumatic compression device
== END 2016-05-12 13:05 | disposition home or self-care (01) ==
LOC: EMEROO 19:58 → 3ANU 19:58 → SUATTDRO 05-11 06:31
PROVIDERS: ADMIT Internal Medicine; ATTEND Internal Medicine

== ENCOUNTER 2016-12-29 10:46 | Inpatient (IN) ==
[2016-12-29] MEDS ORDERED: Levofloxacin 500 MG/100 ML 500 MG/100 ML BAG IVPB ONE (11:03)
--- NOTE | 2016-12-29 11:15 | History & Physical Report ---
Date of Encounter: 12/29/16 Time of Encounter: 11:15 24 Hour HP Update - Instructions Instructions: If the History and Physical is less than 30 days old and was completed prior to A.M. admission and or procedure and has NOT been updated on calendar day of procedure please complete this update prior to performing procedure. - Update Patient reports changes in Medical Condition: No Changes in examination, assessment, or condition: No Changes in Medication: No Preop tests/diagnostics Reviewed: Yes Surgery Remains Indicated: Yes Consent for Planned Operative Procedure(s) Verified: Yes - Pre-Operative Checklist Preoperative Checklist Indicated: Yes Prophylactic Antibiotic Ordered: Yes Is VTE Prophylaxis Indicated?: Yes
[2016-12-29] MEDS: Ringers Solution, Lactated 1,000 ML IVC SCH ×2 (11:17→13:27)
--- NOTE | 2016-12-29 11:18 | Urology History & Physical ---
Date of Encounter: 12/29/16 Time of Encounter: 11:16 Assessment and Plan (1) Bladder cancer Current Visit: No Status: Acute to or today for cysto and b/l rpg. Qualifiers: Bladder location: unspecified site Qualified Code(s): C67.9 - Malignant neoplasm of bladder, unspecified History of Present Illness Chief complaint: abnormal cytology HPI: Mr. William is a 76 year old male here for cysto and b/l RPGs Past Med Surg Social Fam HX - Past Medical History Medical history: cancer, coronary artery disease, diabetes, GERD, hyperlipidemia , hypertension, kidney stones, thyroid disease Psychiatric history: no psych history - Past Surgical History Surgical History: cataract, other - Social History Smoking Status: Never smoker Smokeless Tobacco Status: No Alcohol use: rarely Drug use: none - Family History Father Adopted: No Family Member Ethnicity: Non- Living Status: Hx Family Cardiac Disorders: No Hx Family Respiratory Disorders: No Hx Family Cancer: Yes (prostate cancer) Hx Family GI Disorders: No Hx Family Endocrine Disorder: Yes (mother--diabetes) Hx Family Neuromuscular Disorders: No Hx Family Neurologic Disorders: No Hx Family HEENT Disorders: No Hx Family Autoimmune Disorders: No Mother Living Status: Hx Family Cardiac Disorders: Yes (Hypertension) Hx Family Cancer: Yes (colon) Hx Family Endocrine Disorder: Yes (diabetes) Medications and Allergies Glucosamine/D3/Boswellia Cris [Osteo Bi-Flex Tablet] 1 each PO DAILY 03/09/16 [ History] Lansoprazole [Prevacid] 30 mg PO DAILY 03/09/16 [History] Metformin HCl [Glucophage] 1,000 mg PO BID 03/09/16 [History] Multivitamin [Multi-Day Vitamins] 1 each PO DAILY 03/09/16 [History] Polyethylene Glycol 3350 [MiraLAX] 17 gm PO DAILY 03/09/16 [History] Ubidecarenone [Co Q-10] 100 mg PO DAILY 03/09/16 [History] Gabapentin [Neurontin] 300 mg PO TID 04/20/16 [History] Glimepiride [Amaryl] 4 mg PO DAILY 04/20/16 [History] HYDROcodone/Acet 5/325 mg [[place] 5-325 mg] 2 tab PO Q4H PRN #16 tablet 04/20/16 [Rx] Lisinopril [Zestril] 20 mg PO DAILY 04/20/16 [History] Red Yeast Rice 600 mg PO DAILY 04/20/16 [History] Oxybutynin [Ditropan] 5 mg PO TID PRN #90 tablet 05/12/16 [Rx] Levothyroxine [Synthroid] 25 mcg PO 0630 #30 tablet 05/26/16 [Rx] 3 Allergy/AdvReac Type Severity Reaction Status Date / Time Cyclobenzaprine Allergy Depression Unverified 12/26/16 08:43 Penicillins Allergy Hives Verified 05/10/16 20:03 Review of Systems - Constitutional no chills - Cardiovascular no chest pain Exam Initial Vital Signs Temp Pulse Resp BP Pulse Ox 98.4 F 75 18 152/82 98 12/29/16 11:08 12/29/16 11:08 12/29/16 11:08 12/29/16 11:08 12/29/16 11:08 - General physical appearance Present: well developed - Cardiovascular Cardiovascular exam IM: RRR Urology Results - Labs All other labs normal.
--- NOTE | 2016-12-29 11:38 | Anesthesia Evaluation PreOp ---
Date of Encounter: 12/29/16 Time of Encounter: 11:35 - Past History Planned Operation: Cystoscopy, Bilateral Retrograde pylograms Cardiac History: HTN, Hyperlipidemia MANAGER CONTROL History: Denies Any Significant HX Other Medical History: Renal (stones), Diabetes Type II, GERD, Other (Bladder CA ) Anesthesia History: Past Anesthesia (Turbt, Circumciscion, Left Shoulder), Problems (Poss Guillain-[place] 1 day post-op) Alcohol Use: rarely Drug use: none Medications and Allergies Glucosamine/D3/Boswellia Cris [Osteo Bi-Flex Tablet] 1 each PO DAILY 03/09/16 [ History] Lansoprazole [Prevacid] 30 mg PO DAILY 03/09/16 [History] Metformin HCl [Glucophage] 1,000 mg PO BID 03/09/16 [History] Multivitamin [Multi-Day Vitamins] 1 each PO DAILY 03/09/16 [History] Polyethylene Glycol 3350 [MiraLAX] 17 gm PO DAILY 03/09/16 [History] Ubidecarenone [Co Q-10] 100 mg PO DAILY 03/09/16 [History] Gabapentin [Neurontin] 300 mg PO TID 04/20/16 [History] Glimepiride [Amaryl] 4 mg PO DAILY 04/20/16 [History] HYDROcodone/Acet 5/325 mg [[place] 5-325 mg] 2 tab PO Q4H PRN #16 tablet 04/20/16 [Rx] Lisinopril [Zestril] 20 mg PO DAILY 04/20/16 [History] Acetaminophen [Tylenol Arthritis] 650 mg PO Q8H PRN 12/29/16 [History] Aspirin 81 mg PO DAILY 12/29/16 [History] Docusate Sodium [Dok] 100 mg PO DAILY 12/29/16 [History] Escitalopram [Lexapro] 10 mg PO DAILY 12/29/16 [History] Ibuprofen [Motrin] 200 mg PO Q6H PRN 12/29/16 [History] Levothyroxine [Synthroid] 50 mcg PO 0630 12/29/16 [History] Multivit-Min/FA/Lycopen/Lutein [Centrum Silver Tablet] 1 tab PO DAILY 12/29/16 [ History] Pravastatin Sodium [Pravachol] 40 mg PO DAILY 12/29/16 [History] Vitamin B Complex Vit C No.4 [Super B Complex] 1 tab PO DAILY 12/29/16 [History] 3 Allergy/AdvReac Type Severity Reaction Status Date / Time Cyclobenzaprine Allergy Depression Verified 12/29/16 11:20 Penicillins Allergy Hives Verified 12/29/16 11:20 - Meds/Allergy Pre-op Review Medications Reviewed: Yes Allergies Reviewed: Yes Beta Blockers on Current Med List: No Anesthesia Results - Labs Laboratory Tests 05/10/16 12/26/16 12/26/16 21:30 08:50 08:50 WBC 8.8 Hgb 13.0 Hct 38.4 Plt Count 218 INR 1.0 Sodium 139 Potassium 4.2 Chloride 105 Carbon Dioxide 26 BUN 17 - Imaging EKG: image reviewed (SINUS RHYTHM Left anterior fascicular block) Anesthesia Exam O2 Sat Height 1.7 m Weight 88.451 kg O2 Sat by Pulse Oximetry 98 Vital Signs Temp Pulse Resp BP Pulse Ox 98.4 F 75 18 152/82 98 12/29/16 11:08 12/29/16 11:08 12/29/16 11:08 12/29/16 11:08 12/29/16 11:08 Height: 5'7'' Weight: 195# NPO (# of Hours): > 8 hrs Pain Scale: 0 Pain Scale Used: Numeric (1 - 10) - HEENT Pupil (Motor): EOMI Mallampati: III Teeth: Normal Oral Opening: Greater than 3 - MANAGER CONTROL LOC: Oriented MANAGER CONTROL Motor: Normal RUE, Normal LUE, Normal RLE, Normal LLE, Normal Face MANAGER CONTROL Sensory: Normal: RUE, LUE, RLE, LLE, Face - Cardiac Rhythm: Regular Murmur: None JVD: No Carotid Bruit: No - Pulmonary Breath Sounds: bilateral Clear Respiratory Effort: Symmetrical Anesthesia Assess/Plan ASA Score: 3 Modified Sushma Scale for Level of Consciousness: Cooperative, oriented, and tranquil Anesthetic Plan: General Autologous Blood: Yes Monitoring Plan: Standard Monitors Recovery Plan: PACU
[2016-12-29] MEDS ORDERED: *HR* FentaNYL (PF) 100 MCG/2 ML VIAL ONE (11:55)
[2016-12-29] MEDS ORDERED: *HR* Propofol 200 MG/20 ML VIAL IVP ONE (11:55)
[2016-12-29] MEDS ORDERED: Lidocaine -MPF 2% 2 ML VIAL ONE (11:57)
[2016-12-29] MEDS ORDERED: *HR* HYDROcodone/Acet 5/325 mg TABLET PO PRN ×2 (12:52→20:12)
--- NOTE | 2016-12-29 12:54 | Discharge Summary ---
Outpatient Proc Discharge Plan - Plan Additional Instructions: Patient can expect some blood in his urine. Call if fever greater than 101.5. Prescriptions: HYDROcodone/Acet 5/325 mg [[place] 5-325 mg] 2 tab PO Q4H PRN #20 tablet PRN Reason: Pain Home Medications: Glucosamine/D3/Boswellia Cris [Osteo Bi-Flex Tablet] 1 each PO DAILY 03/09/16 [ History] Lansoprazole [Prevacid] 30 mg PO DAILY 03/09/16 [History] Metformin HCl [Glucophage] 1,000 mg PO BID 03/09/16 [History] Multivitamin [Multi-Day Vitamins] 1 each PO DAILY 03/09/16 [History] Polyethylene Glycol 3350 [MiraLAX] 17 gm PO DAILY 03/09/16 [History] Ubidecarenone [Co Q-10] 100 mg PO DAILY 03/09/16 [History] Gabapentin [Neurontin] 300 mg PO TID 04/20/16 [History] Glimepiride [Amaryl] 4 mg PO DAILY 04/20/16 [History] HYDROcodone/Acet 5/325 mg [[place] 5-325 mg] 2 tab PO Q4H PRN #16 tablet 04/20/16 [Rx] Lisinopril [Zestril] 20 mg PO DAILY 04/20/16 [History] Acetaminophen [Tylenol Arthritis] 650 mg PO Q8H PRN 12/29/16 [History] Aspirin 81 mg PO DAILY 12/29/16 [History] Docusate Sodium [Dok] 100 mg PO DAILY 12/29/16 [History] Escitalopram [Lexapro] 10 mg PO DAILY 12/29/16 [History] HYDROcodone/Acet 5/325 mg [[place] 5-325 mg] 2 tab PO Q4H PRN #20 tablet 12/29/16 [Rx] Ibuprofen [Motrin] 200 mg PO Q6H PRN 12/29/16 [History] Levothyroxine [Synthroid] 50 mcg PO 0630 12/29/16 [History] Multivit-Min/FA/Lycopen/Lutein [Centrum Silver Tablet] 1 tab PO DAILY 12/29/16 [ History] Pravastatin Sodium [Pravachol] 40 mg PO DAILY 12/29/16 [History] Vitamin B Complex Vit C No.4 [Super B Complex] 1 tab PO DAILY 12/29/16 [History]
--- NOTE | 2016-12-29 12:56 | Operative Note ---
Date of procedure: 12/29/16 Pre-op diagnosis: abnormal cytology Post-op diagnosis: other (Right ureteral tumors) Procedure: Cystoscopy, bilateral retrograde pyelogram, right ureteroscopy, right ureteroscopic biopsy of tumor Anesthesia: JOSE ALFREDO Surgeon: Terence Menard Specimen: Right ureteral tumor Procedure in Detail: Patient was prepped and draped in normal sterile fashion. Timeout procedure performed. I then inserted the cystoscope into the patient's bladder. No obvious tumors were seen in the bladder. Open-ended ureteral catheter was placed into the left ureteral orifice. Retrograde pyelogram was performed with no obvious filling defects seen. Retrograde pyelogram was then performed on the right side which showed multiple filling defects in the right ureter with the largest in the proximal right ureter. Sensor wire was then placed in the right kidney. 11 x 13 x 36 cm access sheath was placed in the right kidney. Flexible ureteroscope was then placed into the right kidney. 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 I obtained one large biopsy from this using a basket device. I surveyed the entire ureter on the way out with the access sheath. A few other smaller tumors were located in the distal portion of the ureter. At this point I placed a sensor wire back and the right kidney. A 6 x 26 cm stent was placed with good curl seen in the right kidney and in the bladder.
[2016-12-29] MEDS ORDERED: *HR* HYDROmorphone (PF) 1 MG/ML SYRINGE ONE (13:09)
[2016-12-29] MEDS: *HR* HYDROmorphone (PF) 1 MG/ML SYRINGE IVP PRN ×2 (13:10→13:20)
[2016-12-29] MEDS: *HR* Labetalol 20 MG/4 ML SYRINGE IVP PRN ×3 (13:18→13:29)
[2016-12-29] MEDS ORDERED: *HR* Labetalol 20 MG/4 ML SYRINGE IVP ONE (13:19)
[2016-12-29] MEDS ORDERED: Ondansetron 4 MG/2 ML VIAL IVP PRN (14:48)
[2016-12-29] MEDS ORDERED: *HR* HYDROmorphone (PF) 1 MG/ML SYRINGE IVP PRN ×2 (14:54→20:15)
[2016-12-29] MEDS ORDERED: *HR* Labetalol 100 MG/20 ML MDV ONE (15:31)
[2016-12-29] MEDS ORDERED: Gabapentin 300 MG CAPSULE PO STA (16:13)
--- NOTE | 2016-12-29 16:45 | Anesthesia Evaluation Post Op ---
Date of Encounter: 12/29/16 Time of Encounter: 16:42 - Vital Signs Vital Signs: Vital Signs/O2 Sat, Most Current Temp Pulse Resp BP Pulse Ox 97.4 F L 74 16 163/95 96 12/29/16 14:00 12/29/16 15:30 12/29/16 15:30 12/29/16 15:30 12/29/16 15:30 - Lungs Lungs: Clear Ascult./Percussion - Airway Airway: Non-obstructed - Cardiovascular Regular Rate - Mental Status Mental Status: Alert & Oriented, Answers Appropriately - Pain Pain Scale: 9 Pain Scale used: Numeric (1 - 10) - Nausea Vomiting Nausea Vomiting: Not Present - Hydration Hydration: Tolerates oral liquids, Has not voided (Pt) - Discharge PostOp Status: Transfer Patient to floor (Patient being admitted for Pain and BP control)
[2016-12-29] MEDS ORDERED: *HR* Belladonna Alkaloids/Opium 60 MG RECTAL SUPPOSITORY RC PRN (18:28)
[2016-12-29] MEDS ORDERED: Naloxone 0.4 MG/ML INJ IVP PRN (20:15)
[2016-12-29] MEDS ORDERED: D5% in Water 1,000 ML IVC PRN (20:21)
[2016-12-29] MEDS ORDERED: Dextrose Gel 15 GM PO PRN ×2 (20:21)
[2016-12-29] MEDS ORDERED: *HR* Dextrose 50 % in Water (Syg) 50 ML SYRINGE IVP PRN (20:21)
[2016-12-29] MEDS ORDERED: hydrALAZINE 10 MG TABLET PO PRN (20:28)
[2016-12-29] MEDS ORDERED: Insulin LISPRO 300 UNITS/3 ML VIAL SQ SCH (20:30)
--- NOTE | 2016-12-29 20:37 | Internal Med History&Physical ---
<Ha Stanford - Last Filed: 12/30/16 02:37> Date of Encounter: 12/30/16 Time of Encounter: 20:33 Assessment and Plan (1) Accelerated hypertension Current visit: Yes Status: Acute Blood pressure is 152/82 prior to procedure performed today. Postoperative course showed progressive increase as high as 209/104 Current blood pressure down to 111/58 Continuous cardiac monitoring Cr normal. Producing urine. He is taking Zestril 20 mg once a day at home. Added HCTZ 12.5 mg once a day PRN IV hydralazine We will continue monitor BP closely overnight. Likely discharge tomorrow. 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 He follows up with Dr. Garza every 3 months and his most recent cystoscopy warranted further intervention. 12/29/16: - Performed cystoscopy, bilateral retrograde pyelogram, right ureteroscopy - Multiple filling defects in the right ureter with the largest seen proximally - Right proximal ureteral biopsy of ureteral tumor, Biopsy results pending - 6 x 26 cm stent was placed successfully in the right ureter Plan is to follow-up with Dr. Menard Sunday morning at 11 AM to discuss results and treatment options Qualifiers: Bladder location: unspecified site Qualified Code(s): C67.9 - Malignant neoplasm of bladder, unspecified (3) Leukocytosis Current visit: Yes Status: Acute WBC 18.4. No signs or symptoms of infection on exam. Afebrile. No tachycardia. Likely stress induced from surgery performed today. Will continue to trend. Qualifiers: Leukocytosis type: unspecified Qualified Code(s): D72.829 - Elevated white blood cell count, unspecified (4) T2DM (type 2 diabetes mellitus) Current visit: Yes Status: Chronic Patient is taking metformin and glimepride at home. Started on SS low-dose insulin protocol. Diabetic diet. Resume home meds on discharge Qualifiers: Diabetes mellitus complication status: without complication Diabetes mellitus mcfp insulin use: without mcfp use Qualified Code(s): E11.9 - Type 2 diabetes mellitus without complications (5) GERD (gastroesophageal reflux disease) Current visit: Yes Status: Chronic Restart home med - PPI Qualifiers: Esophagitis presence: without esophagitis Qualified Code(s): K21.9 - Gastro -esophageal reflux disease without esophagitis (6) HLD (hyperlipidemia) Current visit: Yes Status: Chronic Restarted home statin therapy Qualifiers: Hyperlipidemia type: unspecified Qualified Code(s): E78.5 - Hyperlipidemia , unspecified (7) HE (obstructive sleep apnea) Current visit: Yes Status: Chronic Patient brought home CPAP machine and will use at night (8) Depression Current visit: Yes Status: Chronic Depression stable at this time. Started home Lexapro Qualifiers: Depression Type: unspecified Qualified Code(s): F32.9 - Major depressive disorder, single episode, unspecified Internal Medicine - H&P: HPI Chief complaint: accelerated HTN and abdominal pain s/p cystoscopy Admitted From: Home Plans for Post Hospital Care: Home History of present illness: Mr. William is a very pleasant 76 year old male with a past medical history of bladder cancer, type 2 diabetes, CAD, GERD, hyperlipidemia, hypertension, obstructive sleep apnea requiring CPAP and depression who presents to the [facility] with a chief complaint of abdominal pain and accelerated hypertension status post cystoscopy with bilateral retrograde pyelogram and biopsy. Patient was diagnosed and treated earlier this year with low-grade papillary carcinoma of the bladder using transurethral resection and subsequent BCG immunotherapy. During the most recent follow-up appointment with Dr. Menard, a cystoscopy noted abnormal finding requiring further intervention. Earlier today he underwent a cystoscopy, bilateral retrograde milligram, right ureteroscopy and right ureteroscopic biopsy of suspected tumor. During the postoperative course is found to be experiencing chills, nausea and vomiting with associated accelerated hypertension that was elevated to 209/104. Patient was given IV hypertensive medications with minimal improvement and consulted the hospitalist service for admission with observation overnight. He has a follow-up with Dr. Menard on Sunday morning at 11 AM. On evaluation, he reports resolution of his nausea and vomiting but continues to complain of right-sided abdominal pain that radiates to his lower back which started after the procedure this morning. He denies any tobacco or alcohol abuse. No history of accelerated hypertension in the past and denies any chest pain, palpitations, shortness of breath, headache or lower extremity edema. Voiding well with no concerns. Patient is only taking Zestril 20 mg once a day for his hypertension. Mr. William will be admitted to [facility] for further workup and management. Past Med Surg Social Fam HX - Past Medical History Medical history: cancer, coronary artery disease, diabetes, GERD, hyperlipidemia , hypertension, kidney stones, thyroid disease Psychiatric history: no psych history - Past Surgical History Surgical History: cataract, other - Social History Smoking Status: Never smoker Smokeless Tobacco Status: No Alcohol use: rarely Drug use: none - Family History Father Adopted: No Family Member Ethnicity: Non- Living Status: Hx Family Cardiac Disorders: No Hx Family Respiratory Disorders: No Hx Family Cancer: Yes (prostate cancer) Hx Family GI Disorders: No Hx Family Endocrine Disorder: Yes (mother--diabetes) Hx Family Neuromuscular Disorders: No Hx Family Neurologic Disorders: No Hx Family HEENT Disorders: No Hx Family Autoimmune Disorders: No Mother Living Status: Hx Family Cardiac Disorders: Yes (Hypertension) Hx Family Cancer: Yes (colon) Hx Family Endocrine Disorder: Yes (diabetes) Internal Medicine - H&P: Meds Glucosamine/D3/Boswellia Cris [Osteo Bi-Flex Tablet] 1 each PO DAILY 03/09/16 [ History] Lansoprazole [Prevacid] 30 mg PO DAILY 03/09/16 [History] Metformin HCl [Glucophage] 1,000 mg PO BID 03/09/16 [History] Multivitamin [Multi-Day Vitamins] 1 each PO DAILY 03/09/16 [History] Polyethylene Glycol 3350 [MiraLAX] 17 gm PO DAILY 03/09/16 [History] Ubidecarenone [Co Q-10] 100 mg PO DAILY 03/09/16 [History] Gabapentin [Neurontin] 300 mg PO TID 04/20/16 [History] Glimepiride [Amaryl] 4 mg PO DAILY 04/20/16 [History] HYDROcodone/Acet 5/325 mg [[place] 5-325 mg] 2 tab PO Q4H PRN #16 tablet 04/20/16 [Rx] Lisinopril [Zestril] 20 mg PO DAILY 04/20/16 [History] Acetaminophen [Tylenol Arthritis] 650 mg PO Q8H PRN 12/29/16 [History] Aspirin 81 mg PO DAILY 12/29/16 [History] Docusate Sodium [Dok] 100 mg PO DAILY 12/29/16 [History] Escitalopram [Lexapro] 10 mg PO DAILY 12/29/16 [History] HYDROcodone/Acet 5/325 mg [[place] 5-325 mg] 2 tab PO Q4H PRN #20 tablet 12/29/16 [Rx] Ibuprofen [Motrin] 200 mg PO Q6H PRN 12/29/16 [History] Levothyroxine [Synthroid] 50 mcg PO 0630 12/29/16 [History] Multivit-Min/FA/Lycopen/Lutein [Centrum Silver Tablet] 1 tab PO DAILY 12/29/16 [ History] Pravastatin Sodium [Pravachol] 40 mg PO DAILY 12/29/16 [History] Vitamin B Complex Vit C No.4 [Super B Complex] 1 tab PO DAILY 12/29/16 [History] 3 Allergy/AdvReac Type Severity Reaction Status Date / Time Cyclobenzaprine Allergy Depression Verified 12/29/16 11:20 Penicillins Allergy Hives Verified 12/29/16 11:20 All Systems PM: A 10-system review of systems was performed and is negative for pertinent findings except as documented above in the HPI. - Constitutional Constitutional: no fatigue, no night sweats - EENT Eyes: no change in vision - Cardiovascular Cardiovascular ROS IM: no chest pain, no diaphoresis, no dyspnea, no lightheadedness, no palpitations - Respiratory Respiratory: no cough, no dyspnea - Gastrointestinal Gastrointestinal: abdominal pain (Right lower quadrant), no constipation, no diarrhea, no nausea, no vomiting - Genitourinary Genitourinary ROS male: no dysuria - Musculoskeletal Musculoskeletal ROS IM: back pain - Neurological Neurological ROS: no headache(s), no weakness - Psychiatric Psychiatric: depression - Hematologic/Lymphatic Hematologic/Lymphatic: no easy bleeding - Constitutional Vitals: Temp Pulse Resp BP Pulse Ox 97.6 F 80 15 169/81 96 12/29/16 18:55 12/29/16 18:55 12/29/16 18:55 12/29/16 18:55 12/29/16 18:55 General appearance: Present: A&O X 3, no acute distress - Head Head exam: Present: atraumatic, normocephalic - Eye Eye exam: Present: EOMI, conjuntiva pink, sclera anicteric - ENT ENT exam: Present: mucous membranes moist - Neck Neck exam general surgery: Present: normal inspection, trachea midline - Respiratory Respiratory exam: Present: CTAB. Absent: rales, rhonchi, wheezes - Cardiovascular Cardiovascular exam: Present: RRR, +S1, +S2, systolic murmur - GI/Abdominal GI/Abdominal exam: Present: normal bowel sounds, soft, tenderness (RLQ). Absent : distended, guarding - Extremities Exam Extremities exam: Present: normal inspection, warm. Absent: pedal edema, tenderness - Back Exam Back exam: Present: tenderness (right lower lumbar). Absent: CVA tenderness (L) , CVA tenderness (R) - Neurological Exam Neurological exam: Present: alert, oriented X3, no focal deficits. Absent: speech deficit - Psychiatric Psychiatric exam: Present: normal affect, normal mood - Skin Skin exam: Present: dry, warm. Absent: erythema Internal Med - H&P Results - Labs CBC & Chem 7: 12/29/16 20:25 12/29/16 20:25 - Impressions ITS Impressions Retrograde Pyelogram 12/29/16 12:30 IMPRESSION: Intraprocedural fluoroscopic spot images as above with possible eccentric filling defect at the right UPJ, for which artifact, mass, or stone are considerations. Additional smaller defects more distally in the right ureter. Placement of right ureteral stent. See separate procedure report for more information. D/ / 12/29/2016 13:17:11 Luis F Wright MD / [facility] Interpreting Provider: Luis F Wright MD <Larry Curran - Last Filed: 12/30/16 03:42> Date of Encounter: 12/29/16 Internal Medicine - H&P: HPI History of present illness: Mr. William is a 76 year old male All Systems PM: A 10-system review of systems was performed and is negative for pertinent findings except as documented above in the HPI. - Constitutional Vitals: Temp Pulse Resp BP Pulse Ox 97.6 F 96 17 111/58 95 12/29/16 23:23 12/29/16 23:23 12/29/16 23:23 12/29/16 23:23 12/29/16 23:23 Internal Med - H&P Results - Labs CBC & Chem 7: 12/29/16 20:25 12/29/16 20:25 Labs: Short CBC 12/29/16 Range/Units 20:25 WBC 18.4 H D (4.3-11.1) K/mcL Hgb 13.7 (12.9-16.9) g/dL Hct 39.3 (37.5-50.1) % Plt Count 210 (140-400) K/mcL Neutrophils # 16.7 H (1.6-8.9) K/mcL BMP 12/29/16 20:25 Sodium 135 L Potassium 4.2 Chloride 101 Carbon Dioxide 24 BUN 15 Creatinine 0.81 Glucose 216 H Calcium 9.2 - Impressions ITS Impressions Retrograde Pyelogram 12/29/16 12:30 IMPRESSION: Intraprocedural fluoroscopic spot images as above with possible eccentric filling defect at the right UPJ, for which artifact, mass, or stone are considerations. Additional smaller defects more distally in the right ureter. Placement of right ureteral stent. See separate procedure report for more information. D/ / 12/29/2016 13:17:11 Luis F Wright MD / [facility] Interpreting Provider: Luis F Wright MD - Attending Attestation I examined this patient and my medical decision-making was reviewed with the Resident Physician. I agree with the documented findings, disposition and treatment plan as described except to the extent set forth below. I have seen and examined the patient. Patient is a 76-year-old man with history of bladder cancer, coronary artery disease, diabetes, GERD, hyperlipidemia, hypertension and thyroid disease. Patient underwent a cystoscopy and retrograde pyelogram and biopsy today. Tolerated procedure well. Postoperatively patient was experiencing chills and nausea and vomiting and had accelerated hypertension. Patient was admitted for uncontrolled blood pressure. On examination patient is awake and alert. Not in any distress. His blood pressure is now well controlled. He has no complaints at this time. Anticipate discharge tomorrow. Patient and have been explained about his condition and plan of care in detail. They understood and agreed. No unanswered questions. CODE STATUS full code.
[2016-12-29 20:39] LABS: Basophils % 0.2 %; Hematocrit 39.3 % (37.5-50.1); Hemoglobin 13.7 g/dL (12.9-16.9); Immature Granulocytes % 0.3 % (0-4); Lymphocytes # 0.7 K/mcL (0.6-4.6); Mean Corpuscular HGB Conc 34.9 g/dL (31.6-35.5); Mean Corpuscular Hemoglobin 31.4 pg (28.0-33.3); Mean Corpuscular Volume 89.9 fL (83.0-100.0); Mean Platelet Volume 9.6 fL (9.4-12.4); Monocytes # 0.8 K/mcL (0.0-1.3); Monocytes % 4.5 %; Neutrophils # 16.7 K/mcL (1.6-8.9); Platelet Count 210 K/mcL (140-400); Red Blood Count 4.37 M/mcL (4.19-5.50); Red Cell Distribution Width 11.9 % (11.5-14.5)
[2016-12-29 20:49] LABS: BUN/Creatinine Ratio 19 (6-26); Blood Urea Nitrogen 15 mg/dL (8-26); Calcium 9.2 mg/dL (8.6-10.8); Carbon Dioxide 24 mEq/L (19-29); Chloride 101 mEq/L (98-109); Glucose 216 mg/dL (70-99); Osmolality,Calculated 287 (280-300); Potassium 4.2 mEq/L (3.5-4.5); Sodium 135 mEq/L (136-145); eGFR For African Americans > 60 (> 60); eGFR For Non-African Americans > 60 (> 60)
[2016-12-29] MEDS: hydroCHLOROthiazide 25 MG TABLET PO SCH (21:59)
[2016-12-29] MEDS: Aspirin 81 MG TAB.CHEW PO SCH (22:00)
[2016-12-29] MEDS: Lisinopril 20 MG TABLET PO SCH (22:00)
[2016-12-30 04:31] LABS: Basophils % 0.2 %; Eosinophils % 0.3 %; Hematocrit 34.6 % (37.5-50.1); Hemoglobin 11.7 g/dL (12.9-16.9); Immature Granulocytes % 0.4 % (0-4); Lymphocytes # 2.7 K/mcL (0.6-4.6); Lymphocytes % 20.4 %; Mean Corpuscular HGB Conc 33.8 g/dL (31.6-35.5); Mean Corpuscular Volume 91.5 fL (83.0-100.0); Mean Platelet Volume 9.9 fL (9.4-12.4); Monocytes # 1.7 K/mcL (0.0-1.3); Monocytes % 12.6 %; Neutrophils # 8.8 K/mcL (1.6-8.9); Platelet Count 194 K/mcL (140-400); Red Blood Count 3.78 M/mcL (4.19-5.50); Red Cell Distribution Width 12.1 % (11.5-14.5); Segmented Neutrophils % 66.1 %
--- NOTE | 2016-12-30 07:36 | Urology Progress Note ---
Date of Encounter: 12/30/16 Time of Encounter: 07:35 - Assessment and Plan (1) Bladder cancer Current Visit: No Status: Chronic Assessment and plan: patient will f/u on sunday for discussion of tx of right ureteral tumors. ok to dc from urology standpoint. Qualifiers: Bladder location: unspecified site Qualified Code(s): C67.9 - Malignant neoplasm of bladder, unspecified Progress Note Narrative: patient seen. feeling much better. bp much better controlled. Objective Initial Vital Signs Temp Pulse Resp BP Pulse Ox 98.4 F 75 18 152/82 98 12/29/16 11:08 12/29/16 11:08 12/29/16 11:08 12/29/16 11:08 12/29/16 11:08 - General physical appearance Present: well developed - Abdomen Present: soft - Labs 12/30/16 03:56 12/29/16 20:25 Diabetes panel 12/29/16 Range/Units 20:25 Sodium 135 L (136-145) mEq/L Potassium 4.2 (3.5-4.5) mEq/L Chloride 101 (98-109) mEq/L Carbon Dioxide 24 (19-29) mEq/L BUN 15 (8-26) mg/dL Creatinine 0.81 (0.72-1.25) mg/dL Glucose 216 H (70-99) mg/dL Calcium 9.2 (8.6-10.8) mg/dL Calcium panel 12/29/16 Range/Units 20:25 Calcium 9.2 (8.6-10.8) mg/dL Pituitary panel 12/29/16 Range/Units 20:25 Sodium 135 L (136-145) mEq/L Potassium 4.2 (3.5-4.5) mEq/L Chloride 101 (98-109) mEq/L Carbon Dioxide 24 (19-29) mEq/L BUN 15 (8-26) mg/dL Creatinine 0.81 (0.72-1.25) mg/dL Glucose 216 H (70-99) mg/dL Calcium 9.2 (8.6-10.8) mg/dL Adrenal panel 12/29/16 Range/Units 20:25 Sodium 135 L (136-145) mEq/L Potassium 4.2 (3.5-4.5) mEq/L Chloride 101 (98-109) mEq/L Carbon Dioxide 24 (19-29) mEq/L BUN 15 (8-26) mg/dL Creatinine 0.81 (0.72-1.25) mg/dL Glucose 216 H (70-99) mg/dL Calcium 9.2 (8.6-10.8) mg/dL Consult Discharge Plan - Plan Instructions: Ureteral Stent Placement (DC) Additional Instructions: Follow Up Appointment-December at 11:00 Home Medication List * You have been given a list of your current medications. If you have changes in your medications, update your list. * Provide a list of current medications to your primary care physician. * Carry a copy of your current medications with you in case of an emergency. Patient can expect some blood in his urine. Call if fever greater than 101.5. Referrals: Rich Spivey MD [Primary Care Provider] -
[2016-12-30] MEDS ORDERED: (Ubidecarenone [Co Q-10] 100 MG) PO SCH (09:00)
[2016-12-30] MEDS ORDERED: Multivit/Ca/Min/Fe/FA 1 TAB TABLET PO SCH (09:00)
[2016-12-30] MEDS ORDERED: Vitamin B Complex/Vit C/Vit E 1 EACH TABLET PO SCH (09:00)
[2016-12-30] MEDS: Insulin LISPRO 300 UNITS/3 ML VIAL SQ SCH ×2 (09:20→12:59)
[2016-12-30] MEDS: Aspirin 81 MG TAB.CHEW PO SCH (09:20)
[2016-12-30] MEDS: Lisinopril 20 MG TABLET PO SCH (09:20)
[2016-12-30] MEDS: hydroCHLOROthiazide 25 MG TABLET PO SCH (09:20)
[2016-12-30 11:08] VITALS: BP 142/69
--- NOTE | 2016-12-30 13:11 | Discharge Summary ---
Date of Encounter: 12/30/16 Time of Encounter: 16:00 - Discharge Diagnosis (1) Neoplasm of right ureter Priority: Secondary Status: Acute (2) HTN (hypertension) Priority: Primary Status: Acute Qualifiers: Hypertension type: unspecified secondary hypertension Qualified Code(s): I15.9 - Secondary hypertension, unspecified; I15 - Secondary hypertension - Discharge Medications Prescriptions: Doxycycline 100 mg PO BID #14 capsule Home Medications: Glucosamine/D3/Boswellia Cris [Osteo Bi-Flex Tablet] 1 each PO DAILY 03/09/16 [ History] Lansoprazole [Prevacid] 30 mg PO DAILY 03/09/16 [History] Multivitamin [Multi-Day Vitamins] 1 each PO DAILY 03/09/16 [History] Polyethylene Glycol 3350 [MiraLAX] 17 gm PO DAILY 03/09/16 [History] Ubidecarenone [Co Q-10] 100 mg PO DAILY 03/09/16 [History] Gabapentin [Neurontin] 300 mg PO TID 04/20/16 [History] Glimepiride [Amaryl] 4 mg PO DAILY 04/20/16 [History] Lisinopril [Zestril] 20 mg PO DAILY 04/20/16 [History] Acetaminophen [Tylenol Arthritis] 650 mg PO Q8H PRN 12/29/16 [History] Aspirin 81 mg PO DAILY 12/29/16 [History] Docusate Sodium [Dok] 100 mg PO DAILY 12/29/16 [History] Escitalopram [Lexapro] 10 mg PO DAILY 12/29/16 [History] Levothyroxine [Synthroid] 50 mcg PO 0630 12/29/16 [History] Multivit-Min/FA/Lycopen/Lutein [Centrum Silver Tablet] 1 tab PO DAILY 12/29/16 [ History] Pravastatin Sodium [Pravachol] 40 mg PO DAILY 12/29/16 [History] Vitamin B Complex Vit C No.4 [Super B Complex] 1 tab PO DAILY 12/29/16 [History] Belladonna Alkaloids/Opium [B + O] 60 mg RC Q6HR PRN #60 supp.rect 12/30/16 [Rx] Doxycycline 100 mg PO BID #14 capsule 12/30/16 [Rx] Metformin HCl [Glucophage] 1,000 mg PO BID #90 12/30/16 [Rx] hydroCHLOROthiazide [Hydrochlorothiazide] 12.5 mg PO DAILY tablet 12/30/16 [Rx] Allergies/Adverse Reactions: 3 Allergy/AdvReac Type Severity Reaction Status Date / Time Cyclobenzaprine Allergy Depression Verified 12/29/16 11:20 Penicillins Allergy Hives Verified 12/29/16 11:20 Date of admission: 12/29/16 23:58 Primary care physician: Rich Spivey, Discharging clinician: Marleny Recinos Anticipated date of discharge: 12/30/16 - Patient Status Disposition: Home, Self-Care Condition: Good Functional capacity at discharge: independent ambulation Overall status at discharge: patient is progressing back to baseline - Discharge Instructions Instructions: Ureteral Stent Placement (DC) Follow Up With: Rich Spivey MD [Primary Care Provider] - Additional Instructions: Follow Up Appointment-December at 11:00 Home Medication List * You have been given a list of your current medications. If you have changes in your medications, update your list. * Provide a list of current medications to your primary care physician. * Carry a copy of your current medications with you in case of an emergency. Patient can expect some blood in his urine. Call if fever greater than 101.5. Hospital course: Mr. William is 76 year old male with a past medical history of bladder cancer, type 2 diabetes, CAD, GERD, hyperlipidemia, hypertension, obstructive sleep apnea requiring CPAP and depression who presents to the [facility] with a chief complaint of abdominal pain and uncontrolled hypertension status post cystoscopy with bilateral retrograde pyelogram and biopsy. Patient was diagnosed and treated earlier this year with low-grade papillary carcinoma of the bladder using transurethral resection and subsequent BCG immunotherapy. During the most recent follow-up appointment with Dr. Menard , cystoscopy noted abnormal finding requiring further intervention. Earlier today he underwent a cystoscopy, bilateral retrograde milligram, right ureteroscopy and right ureteroscopic biopsy of suspected tumor. During the postoperative course ,He was found to be experiencing chills, nausea and vomiting with associated hypertension that was elevated to 209/104. Patient was given IV hypertensive medications with minimal improvement , patient was admitted for further monitoring of his blood pressure overnight. He has a follow-up with Dr. Menard on Sunday morning at 11 AM. On evaluation, he reports resolution of his nausea and vomiting but continues to complain of right-sided abdominal pain that radiates to his lower back which started after the procedure this morning. He denies any chest pain, palpitations, shortness of breath, headache or lower extremity edema. Voiding well with no concerns. We will continue to monitor patient blood pressure overnight, marked improvement , urine analysis was positive for urinary tract infection patient was placed on doxycycline on discharge based on the result of old culture, discussed with patient without doxycycline and risk and benefit discussed about take it with glasses of water with meals. Patient discharged home in stable condition - Time Spent with Patient Total time spent providing and/or coordinating discharge services: Greater than 30 minutes - Constitutional Vitals: Temp Pulse Resp BP Pulse Ox 97.8 F 83 18 142/69 96 12/30/16 11:00 12/30/16 11:00 12/30/16 11:00 12/30/16 11:00 12/30/16 11:00 General appearance: Present: A&O X 3, no acute distress - Head Head exam: Present: atraumatic, normocephalic - Eye Eye exam: Present: conjuntiva pink, sclera anicteric - Respiratory Respiratory exam: Present: CTAB. Absent: accessory muscle use, rales, rhonchi, wheezes - Cardiovascular Cardiovascular exam: Present: RRR, +S1, +S2. Absent: diastolic murmur, gallop, rubs, systolic murmur - Extremities Exam Extremities exam: Present: warm, radial pulses palpable and symmetrical. Absent : calf tenderness, cyanotic, pedal edema
[2016-12-30 14:05] LABS: BUN/Creatinine Ratio 18 (6-26); Blood Urea Nitrogen 17 mg/dL (8-26); Calcium 9.6 mg/dL (8.6-10.8); Carbon Dioxide 26 mEq/L (19-29); Chloride 102 mEq/L (98-109); Glucose 192 mg/dL (70-99); Osmolality,Calculated 291 (280-300); Potassium 3.7 mEq/L (3.5-4.5); Sodium 137 mEq/L (136-145); eGFR For African Americans > 60 (> 60); eGFR For Non-African Americans > 60 (> 60)
[2016-12-30 15:33] LABS: Bilirubin,Urine Negative (Negative); Blood,Urine Large (Negative); Clarity,Urine Cloudy (Clear); Color,Urine Yellow (Yellow); Glucose,Urine (UA) 100 mg/dL (Normal); Ketones,Urine Negative (Negative); Leukocyte Esterase,Urine Moderate (Negative); Nitrite,Urine Negative (Negative); PH,Urine 6.5 pH Units (5.0-8.0); Protein,Urine 30 mg/dL (Neg-Trace); Specific Gravity,Urine 1.014 (1.010-1.025); Urobilinogen,Urine Normal (Normal)
== END 2016-12-30 16:59 | disposition home or self-care (01) | DRG 687 ==
LOC: 2NENU 10:46 → SAMDAY 10:46
PROVIDERS: ADMIT Internal Medicine; ATTEND Hospitalist

== ENCOUNTER 2017-01-15 06:23 | Inpatient (IN) ==
[2017-01-15] MEDS ORDERED: Lidocaine -MPF 1% 2 ML VIAL ID ONE (06:40)
[2017-01-15] MEDS ORDERED: Levofloxacin 500 MG/100 ML 500 MG/100 ML BAG IVPB ONE (06:40)
[2017-01-15] MEDS ORDERED: Ringers Solution, Lactated 1,000 ML IVC SCH (06:45)
--- NOTE | 2017-01-15 06:49 | Anesthesia Evaluation PreOp ---
Date of Encounter: 01/15/17 Time of Encounter: 06:46 - Past History Planned Operation: right hand assisted lap nephrouretectomy with stent Cardiac History: HTN, Hyperlipidemia, Other (CAD) Pulmonary History: HE Dx (uses CPAP) Other Medical History: Renal (kidney stones bladder cancer), Diabetes Type II, GERD Anesthesia History: No Prior Anesthetic Complications, Past Anesthesia ( shoulder scope, bladder sx) Alcohol Use: rarely Drug use: none Medications and Allergies Glucosamine/D3/Boswellia Cris [Osteo Bi-Flex Tablet] 1 each PO DAILY 03/09/16 [ History] Lansoprazole [Prevacid] 30 mg PO DAILY 03/09/16 [History] Multivitamin [Multi-Day Vitamins] 1 each PO DAILY 03/09/16 [History] Polyethylene Glycol 3350 [MiraLAX] 17 gm PO DAILY 03/09/16 [History] Ubidecarenone [Co Q-10] 100 mg PO DAILY 03/09/16 [History] Gabapentin [Neurontin] 300 mg PO TID 04/20/16 [History] Glimepiride [Amaryl] 4 mg PO DAILY 04/20/16 [History] Lisinopril [Zestril] 20 mg PO DAILY 04/20/16 [History] Acetaminophen [Tylenol Arthritis] 650 mg PO Q8H PRN 12/29/16 [History] Aspirin 81 mg PO DAILY 12/29/16 [History] Docusate Sodium [Dok] 100 mg PO DAILY 12/29/16 [History] Escitalopram [Lexapro] 10 mg PO DAILY 12/29/16 [History] Levothyroxine [Synthroid] 50 mcg PO 0630 12/29/16 [History] Multivit-Min/FA/Lycopen/Lutein [Centrum Silver Tablet] 1 tab PO DAILY 12/29/16 [ History] Pravastatin Sodium [Pravachol] 40 mg PO DAILY 12/29/16 [History] Vitamin B Complex Vit C No.4 [Super B Complex] 1 tab PO DAILY 12/29/16 [History] Belladonna Alkaloids/Opium [B + O] 60 mg RC Q6HR PRN #60 supp.rect 12/30/16 [Rx] Doxycycline 100 mg PO BID #14 capsule 12/30/16 [Rx] Metformin HCl [Glucophage] 1,000 mg PO BID #90 12/30/16 [Rx] hydroCHLOROthiazide [Hydrochlorothiazide] 12.5 mg PO DAILY tablet 12/30/16 [Rx] 3 Allergy/AdvReac Type Severity Reaction Status Date / Time Cyclobenzaprine Allergy Depression Verified 12/29/16 11:20 Penicillins Allergy Hives Verified 12/29/16 11:20 - Meds/Allergy Pre-op Review Medications Reviewed: Yes Allergies Reviewed: Yes Beta Blockers on Current Med List: No Anesthesia Results - Labs Laboratory Tests 05/14/14 05/10/16 12/30/16 05:22 21:30 03:56 Hgb 11.7 L D Hct 34.6 L Plt Count 194 PT 10.7 PTT 27.2 INR 1.0 Sodium Potassium BUN Creatinine 12/30/16 13:28 Hgb Hct Plt Count PT PTT INR Sodium 137 Potassium 3.7 BUN 17 Creatinine 0.96 - Imaging EKG: report reviewed (NSR) Anesthesia Exam Selected Entries 01/15/17 06:44 Temperature 98.2 F Pulse Rate 85 Respiratory Rate 18 Blood Pressure 146/75 O2 Sat by Pulse Oximetry 97 Weight: 84kg NPO (# of Hours): 8 - HEENT Pupil (Motor): EOMI Mallampati: IV (large tongue) Teeth: Normal Oral Opening: Greater than 3 - PAID INTERNSHIP LOC: Oriented [employer] Motor: Normal RUE, Normal LUE, Normal RLE, Normal LLE, Normal Face PA[employer] Sensory: Normal: RUE, LUE, RLE, LLE, Face - Cardiac Rhythm: Regular Murmur: None - Pulmonary Breath Sounds: bilateral Clear Respiratory Effort: Symmetrical Anesthesia Assess/Plan ASA Score: 4 Modified Guston Scale for Level of Consciousness: Cooperative, oriented, and tranquil Anesthetic Plan: General Monitoring Plan: Standard Monitors, A-Line Recovery Plan: PACU (disucsseed risks of GA and a-line. Agrees to proceed)
--- NOTE | 2017-01-15 06:49 | History & Physical Report ---
Date of Encounter: 01/15/17 Time of Encounter: 06:48 24 Hour HP Update - Instructions Instructions: If the History and Physical is less than 30 days old and was completed prior to A.M. admission and or procedure and has NOT been updated on calendar day of procedure please complete this update prior to performing procedure. - Update Patient reports changes in Medical Condition: No Changes in examination, assessment, or condition: No Changes in Medication: No Preop tests/diagnostics Reviewed: Yes Surgery Remains Indicated: Yes Consent for Planned Operative Procedure(s) Verified: Yes - Pre-Operative Checklist Preoperative Checklist Indicated: Yes Prophylactic Antibiotic Ordered: Yes Is VTE Prophylaxis Indicated?: Yes
[2017-01-15] MEDS ORDERED: Lidocaine -MPF 4% 5 ML AMPUL ONE (07:11)
[2017-01-15] MEDS ORDERED: *HR* FentaNYL (PF) 100 MCG/2 ML VIAL ONE ×3 (07:11→09:08)
[2017-01-15] MEDS ORDERED: *HR* Propofol 200 MG/20 ML VIAL IVP ONE (07:11)
[2017-01-15] MEDS ORDERED: *HR* Phenylephrine 10 MG/ML VIAL ONE (07:11)
[2017-01-15] MEDS ORDERED: Heparin 1,000 UNITS/500 mL NS 500 ML ONE (07:31)
[2017-01-15] MEDS ORDERED: EPHEDrine 50 MG/ML VIAL ONE (08:30)
[2017-01-15] MEDS ORDERED: *HR* Rocuronium Bromide 50 MG/5 ML VIAL ONE (08:56)
[2017-01-15] MEDS ORDERED: *HR* HYDROmorphone 2 MG/ML SYRINGE ONE (09:23)
[2017-01-15] MEDS ORDERED: Ondansetron 4 MG/2 ML VIAL IVP ONE (09:31)
--- NOTE | 2017-01-15 10:33 | Operative Note ---
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 I then inserted the semirigid ureteroscope into the patient's penis and advanced in the bladder. Cannulated the left ureteral orifice and advance the scope all the way to the kidney with no obvious tumors or stones seen. I then placed the resectoscope into the bladder and proceeded to use the Pedersen knife to incise around the right ureteral orifice. I took this dissection down to the fat. Patient was then placed in the right up lateral position. Reprepped and draped. Hand port incision made in right lower quadrant. Peritoneum was accessed. Hand port was placed and pneumoperitoneum obtained. 2 sales assistant entertainment and media trochars were placed just lateral to the umbilicus and slightly more cranial to this. I then used the Harmonic scalpel to dissect the colon free from the lateral wall. I was easily able to identify the right ureter secondary to a indwelling ureteral stent. I was able to carry this dissection cranially and identified the renal hilum. I then used the 60 mm stapler and staple across the hilum. No bleeding was noted. I then was able to carry my dissection of the ureter down inferiorly was able to bring the ureter and stent into the field. A clip was placed on the distal ureter at this time. I then completed my dissection on the lateral aspect of the kidney freeing it from its attachments. Specimen was placed into a specimen bag and removed in its entirety. I then replaced the hand port and visualized the resection bed with no obvious bleeding seen. Hand port incision fascia was closed in 2 layers using 0 PDS. Skin was closed using 4-0 Monocryl. The port incisions were also closed using 4-0 Monocryl. Dermabond was placed over top of all incisions. Patient taken to PACU in stable condition
[2017-01-15] MEDS: *HR* HYDROmorphone (PF) 1 MG/ML SYRINGE IVP PRN ×2 (10:40→10:50)
--- NOTE | 2017-01-15 11:03 | Anesthesia Evaluation Post Op ---
Date of Encounter: 01/15/17 Time of Encounter: 11:02 - Vital Signs Vital Signs: VSS, BP slightly elevated from admission. - Airway Airway: Non-obstructed - Cardiovascular Regular Rate - Mental Status Mental Status: Alert & Oriented, Answers Appropriately - Nausea Vomiting Nausea Vomiting: Not Present - Hydration Hydration: NPO - Discharge PostOp Status: Transfer Patient to floor
[2017-01-15] MEDS ORDERED: *HR* Promethazine 25 MG/ML VIAL IV PRN (11:28)
[2017-01-15] MEDS ORDERED: Naloxone 0.4 MG/ML INJ IVP PRN (11:28)
[2017-01-15] MEDS ORDERED: *HR* Belladonna Alkaloids/Opium 60 MG RECTAL SUPPOSITORY RC PRN (11:28)
[2017-01-15] MEDS: 0.9 % Sodium Chloride 1,000 ML IVC SCH ×2 (12:40→20:27)
[2017-01-15] MEDS: *HR* HYDROcodone/Acet 5/325 mg TABLET PO PRN ×2 (12:54→17:50)
[2017-01-15] MEDS: *HR* Morphine 2 MG/ML SYRINGE IVP PRN ×2 (14:44→23:22)
[2017-01-15] MEDS: Gabapentin 300 MG CAPSULE PO SCH ×2 (14:45→20:27)
[2017-01-15] MEDS: Insulin LISPRO 300 UNITS/3 ML VIAL SQ SCH (20:33)
[2017-01-16] MEDS: 0.9 % Sodium Chloride 1,000 ML IVC SCH ×3 (03:00→20:42)
--- NOTE | 2017-01-16 06:47 | Urology Progress Note ---
Date of Encounter: 01/16/17 Time of Encounter: 06:46 - Assessment and Plan (1) Neoplasm of right ureter Current Visit: No Status: Acute Assessment and plan: sp removal. up and ambulate. clears until flatus. Progress Note Narrative: POD 1 from right DONI neph-u Objective Initial Vital Signs Temp Pulse Resp BP Pulse Ox 98.2 F 85 18 146/75 97 01/15/17 06:44 01/15/17 06:44 01/15/17 06:44 01/15/17 06:44 01/15/17 06:44 - General physical appearance Present: well developed - Abdomen Present: soft (incisions c/d/i) - VTE Documentation of Mechanical Device: Intermittent pneumatic compression device Consult Discharge Plan - Plan Referrals: NONE,PCP [Primary Care Provider] -
[2017-01-16 06:52] LABS: Basophils % 0.2 %; Eosinophils % 0.1 %; Hematocrit 31.6 % (37.5-50.1); Hemoglobin 10.7 g/dL (12.9-16.9); Immature Granulocytes % 0.4 % (0-4); Lymphocytes % 14.2 %; Mean Corpuscular HGB Conc 33.9 g/dL (31.6-35.5); Mean Corpuscular Hemoglobin 31.2 pg (28.0-33.3); Mean Corpuscular Volume 92.1 fL (83.0-100.0); Mean Platelet Volume 9.6 fL (9.4-12.4); Monocytes % 14.3 %; Platelet Count 195 K/mcL (140-400); Red Blood Count 3.43 M/mcL (4.19-5.50); Red Cell Distribution Width 12.4 % (11.5-14.5); Segmented Neutrophils % 70.8 %
[2017-01-16 06:53] LABS: Lymphocytes # 1.6 K/mcL (0.6-4.6); Monocytes # 1.6 K/mcL (0.0-1.3); Neutrophils # 7.8 K/mcL (1.6-8.9)
[2017-01-16 07:01] LABS: BUN/Creatinine Ratio 13 (6-26); Blood Urea Nitrogen 17 mg/dL (8-26); Calcium 8.2 mg/dL (8.6-10.8); Carbon Dioxide 23 mEq/L (19-29); Chloride 106 mEq/L (98-109); Glucose 172 mg/dL (70-99); Osmolality,Calculated 286 (280-300); Potassium 4.3 mEq/L (3.5-4.5); Sodium 135 mEq/L (136-145); eGFR For African Americans > 60 (> 60); eGFR For Non-African Americans 56 (> 60)
[2017-01-16] MEDS: Gabapentin 300 MG CAPSULE PO SCH ×3 (08:51→20:43)
[2017-01-16] MEDS: *HR* Glimepiride 4 MG TABLET PO SCH (08:51)
[2017-01-16] MEDS: hydroCHLOROthiazide 25 MG TABLET PO SCH (08:51)
[2017-01-16] MEDS: Insulin LISPRO 300 UNITS/3 ML VIAL SQ SCH ×4 (08:52→20:43)
[2017-01-16] MEDS: *HR* Morphine 2 MG/ML SYRINGE IVP PRN (08:53)
[2017-01-17] MEDS: *HR* HYDROcodone/Acet 5/325 mg TABLET PO PRN ×2 (00:40→08:50)
[2017-01-17] MEDS: 0.9 % Sodium Chloride 1,000 ML IVC SCH ×3 (04:24→21:29)
[2017-01-17 07:17] LABS: Basophils # 0.1 K/mcL (0.0-0.2); Basophils % 0.3 %; Eosinophils # 0.2 K/mcL (0.0-0.6); Eosinophils % 1.1 %; Hematocrit 31.5 % (37.5-50.1); Hemoglobin 10.8 g/dL (12.9-16.9); Immature Granulocytes % 0.5 % (0-4); Lymphocytes # 2.6 K/mcL (0.6-4.6); Lymphocytes % 18.3 %; Mean Corpuscular HGB Conc 34.3 g/dL (31.6-35.5); Mean Corpuscular Hemoglobin 31.5 pg (28.0-33.3); Mean Corpuscular Volume 91.8 fL (83.0-100.0); Mean Platelet Volume 9.6 fL (9.4-12.4); Monocytes # 1.7 K/mcL (0.0-1.3); Monocytes % 12.1 %; Neutrophils # 9.7 K/mcL (1.6-8.9); Platelet Count 186 K/mcL (140-400); Red Blood Count 3.43 M/mcL (4.19-5.50); Red Cell Distribution Width 12.3 % (11.5-14.5); Segmented Neutrophils % 67.7 %
[2017-01-17 08:22] LABS: BUN/Creatinine Ratio 10 (6-26); Blood Urea Nitrogen 12 mg/dL (8-26); Calcium 8.3 mg/dL (8.6-10.8); Carbon Dioxide 21 mEq/L (19-29); Chloride 106 mEq/L (98-109); Glucose 131 mg/dL (70-99); Osmolality,Calculated 284 (280-300); Potassium 4.9 mEq/L (3.5-4.5); Sodium 136 mEq/L (136-145); eGFR For African Americans > 60 (> 60); eGFR For Non-African Americans 56 (> 60)
[2017-01-17] MEDS: *HR* Glimepiride 4 MG TABLET PO SCH (08:48)
[2017-01-17] MEDS: *HR* Metformin 500 MG TABLET PO SCH ×2 (08:49→21:29)
[2017-01-17] MEDS: Gabapentin 300 MG CAPSULE PO SCH ×3 (08:49→21:29)
[2017-01-17] MEDS: hydroCHLOROthiazide 25 MG TABLET PO SCH (08:50)
[2017-01-17] MEDS: Insulin LISPRO 300 UNITS/3 ML VIAL SQ SCH ×4 (10:26→21:31)
--- NOTE | 2017-01-17 10:51 | Urology Progress Note ---
Date of Encounter: 01/17/17 Time of Encounter: 10:50 - Assessment and Plan (1) Neoplasm of right ureter Current Visit: No Status: Acute Assessment and plan: up and ambulate. continue clears until flatus. hopeful dc tomorrow. Progress Note Narrative: patient seen. pod 2 from right HaLNU. was up and ambulating yesterday. carmen clears. no flatus. labs stable. Objective Initial Vital Signs Temp Pulse Resp BP Pulse Ox 98.2 F 85 18 146/75 97 01/15/17 06:44 01/15/17 06:44 01/15/17 06:44 01/15/17 06:44 01/15/17 06:44 - General physical appearance Present: well developed - Abdomen Present: soft (inc c/d/i) - Labs 01/17/17 07:07 01/17/17 07:43 Diabetes panel 01/17/17 Range/Units 07:43 Sodium 136 (136-145) mEq/L Potassium 4.9 H (3.5-4.5) mEq/L Chloride 106 (98-109) mEq/L Carbon Dioxide 21 (19-29) mEq/L BUN 12 (8-26) mg/dL Creatinine 1.25 (0.72-1.25) mg/dL Glucose 131 H (70-99) mg/dL Calcium 8.3 L (8.6-10.8) mg/dL Calcium panel 01/17/17 Range/Units 07:43 Calcium 8.3 L (8.6-10.8) mg/dL Pituitary panel 01/17/17 Range/Units 07:43 Sodium 136 (136-145) mEq/L Potassium 4.9 H (3.5-4.5) mEq/L Chloride 106 (98-109) mEq/L Carbon Dioxide 21 (19-29) mEq/L BUN 12 (8-26) mg/dL Creatinine 1.25 (0.72-1.25) mg/dL Glucose 131 H (70-99) mg/dL Calcium 8.3 L (8.6-10.8) mg/dL Adrenal panel 01/17/17 Range/Units 07:43 Sodium 136 (136-145) mEq/L Potassium 4.9 H (3.5-4.5) mEq/L Chloride 106 (98-109) mEq/L Carbon Dioxide 21 (19-29) mEq/L BUN 12 (8-26) mg/dL Creatinine 1.25 (0.72-1.25) mg/dL Glucose 131 H (70-99) mg/dL Calcium 8.3 L (8.6-10.8) mg/dL - VTE Documentation of Mechanical Device: Intermittent pneumatic compression device Consult Discharge Plan - Plan Referrals: NONE,PCP [Primary Care Provider] -
[2017-01-18] MEDS: 0.9 % Sodium Chloride 1,000 ML IVC SCH (06:19)
--- NOTE | 2017-01-18 07:02 | Discharge Summary ---
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 Status: Acute Qualifiers: Laterality: right Qualified Code(s): C66.1 - Malignant neoplasm of right ureter - Discharge Medications Prescriptions: HYDROcodone/Acet 5/325 mg [[place] 5-325 mg] 2 tab PO Q4H PRN #25 tablet PRN Reason: pain 1-6 Home Medications: Glucosamine/D3/Boswellia Cris [Osteo Bi-Flex Tablet] 1 each PO DAILY 03/09/16 [ History] Lansoprazole [Prevacid] 30 mg PO DAILY 03/09/16 [History] Polyethylene Glycol 3350 [MiraLAX] 17 gm PO DAILY 03/09/16 [History] Ubidecarenone [Co Q-10] 100 mg PO DAILY 03/09/16 [History] Gabapentin [Neurontin] 300 mg PO TID 04/20/16 [History] Glimepiride [Amaryl] 4 mg PO DAILY 04/20/16 [History] Lisinopril [Zestril] 20 mg PO DAILY 04/20/16 [History] Acetaminophen [Tylenol Arthritis] 650 mg PO Q8H PRN 12/29/16 [History] Aspirin 81 mg PO DAILY 12/29/16 [History] Docusate Sodium [Dok] 100 mg PO DAILY 12/29/16 [History] Escitalopram [Lexapro] 10 mg PO DAILY 12/29/16 [History] Levothyroxine [Synthroid] 50 mcg PO 0630 12/29/16 [History] Multivit-Min/FA/Lycopen/Lutein [Centrum Silver Tablet] 1 tab PO DAILY 12/29/16 [ History] Pravastatin Sodium [Pravachol] 40 mg PO DAILY 12/29/16 [History] Vitamin B Complex Vit C No.4 [Super B Complex] 1 tab PO DAILY 12/29/16 [History] Metformin HCl [Glucophage] 1,000 mg PO BID #90 12/30/16 [Rx] hydroCHLOROthiazide [Hydrochlorothiazide] 12.5 mg PO DAILY tablet 12/30/16 [Rx] HYDROcodone/Acet 5/325 mg [[place] 5-325 mg] 2 tab PO Q4H PRN #25 tablet 01/18/17 [Rx] Allergies/Adverse Reactions: 3 Allergy/AdvReac Type Severity Reaction Status Date / Time Penicillins Allergy Hives Verified 12/29/16 11:20 Procedures and tests throughout hospitalization: Right hand-assisted laparoscopic nephroureterectomy on 01/15/2017 Labs on day of discharge: Labs from last 24 hours 01/17/17 01/17/17 01/17/17 21:25 16:04 11:12 WBC RBC Hgb Hct MCV MCH MCHC RDW Plt Count MPV Immature Gran % Seg Neutrophils % Lymphocytes % Monocytes % Eosinophils % Basophils % Neutrophils # Lymphocytes # Monocytes # Eosinophils # Basophils # Sodium Potassium Chloride Carbon Dioxide BUN Creatinine Est GFR ( Amer) Est GFR (Non-Af Amer) BUN/Creatinine Ratio Glucose POC Glucose 183 H 118 H 246 H Calculated Osmolality Calcium Specimen Rejected 01/17/17 01/17/17 01/17/17 07:43 07:28 07:14 WBC RBC Hgb Hct MCV MCH MCHC RDW Plt Count MPV Immature Gran % Seg Neutrophils % Lymphocytes % Monocytes % Eosinophils % Basophils % Neutrophils # Lymphocytes # Monocytes # Eosinophils # Basophils # Sodium 136 Potassium 4.9 H Chloride 106 Carbon Dioxide 21 BUN 12 Creatinine 1.25 Est GFR ( Amer) > 60 Est GFR (Non-Af Amer) 56 L BUN/Creatinine Ratio 10 Glucose 131 H POC Glucose 113 H Calculated Osmolality 284 Calcium 8.3 L Specimen Rejected Hemolyzed 01/17/17 07:07 WBC 14.3 H RBC 3.43 L Hgb 10.8 L Hct 31.5 L MCV 91.8 MCH 31.5 MCHC 34.3 RDW 12.3 Plt Count 186 MPV 9.6 Immature Gran % 0.5 Seg Neutrophils % 67.7 Lymphocytes % 18.3 Monocytes % 12.1 Eosinophils % 1.1 Basophils % 0.3 Neutrophils # 9.7 H Lymphocytes # 2.6 Monocytes # 1.7 H Eosinophils # 0.2 Basophils # 0.1 Sodium Potassium Chloride Carbon Dioxide BUN Creatinine Est GFR ( Amer) Est GFR (Non-Af Amer) BUN/Creatinine Ratio Glucose POC Glucose Calculated Osmolality Calcium Specimen Rejected Date of admission: 01/15/17 06:50 Primary care physician: PCP NONE Discharging clinician: Terence Menard Anticipated date of discharge: 01/18/17 - Patient Status Disposition: Home, Self-Care Condition: Good Functional capacity at discharge: independent ambulation Overall status at discharge: patient is progressing back to baseline - Discharge Instructions Follow Up With: NONE,PCP [Primary Care Provider] - Terence Menard MD [Partnered Physician] - (next sunday ) Additional Instructions: Patient to keep catheter to either leg bag or larger bag. Patient to call if fever greater than 101.5. Okay for patient to shower. No soaking bath for 3 weeks. - Diet and Activity Activity: increase activity as tolerated (No heavy lifting more than 10 pounds for 2-3 weeks.) Diet: advance to your usual diet - Hospital Course Hospital course: Mr. William is a 76 year old male status post right hand-assisted lap scopic nephroureterectomy. Patient did well on the floor. Emulated early. Tolerated diet. He had passed flatus prior to discharge. Labs are stable. Pathology did reveal right ureteral carcinoma. I am going to review the pathological report with the pathologist because the description and the T stage do not match. Based on description the pathological T stage should be T1. Urine remained clear and the patient's catheter. Time spent discussing smoking cessation with patient: 3 to 10 minutes - Time Spent with Patient Total time spent providing and/or coordinating discharge services: Less than 30 minutes Exam Initial Vital Signs Temp Pulse Resp BP Pulse Ox 98.2 F 85 18 146/75 97 01/15/17 06:44 01/15/17 06:44 01/15/17 06:44 01/15/17 06:44 01/15/17 06:44 - General physical appearance Present: well developed - Cardiovascular Cardiovascular exam IM: RRR - Abdomen Abdomen: Present: soft ( incisions c/d/i) - VTE Documentation of Mechanical Device: Intermittent pneumatic compression device
[2017-01-18 07:53] VITALS: BP 124/73
[2017-01-18] MEDS: Insulin LISPRO 300 UNITS/3 ML VIAL SQ SCH (09:11)
[2017-01-18] MEDS: Gabapentin 300 MG CAPSULE PO SCH (09:12)
[2017-01-18] MEDS: hydroCHLOROthiazide 25 MG TABLET PO SCH (09:12)
[2017-01-18] MEDS: *HR* Glimepiride 4 MG TABLET PO SCH (09:13)
[2017-01-18] MEDS: *HR* Metformin 500 MG TABLET PO SCH (09:13)
== END 2017-01-18 11:20 | disposition home or self-care (01) | DRG 658 ==
LOC: SAMDAY 06:23 → 3ANU 06:50
PROVIDERS: ADMIT Urology; ATTEND Urology

== ENCOUNTER 2017-07-08 09:38 | Observation (INO) ==
--- NOTE | 2017-07-08 09:56 | Emergency Department Note ---
Disposition Clinical Impression: Acute kidney injury, Diverticulitis Disposition: Admitted As Inpatient Condition: Good Referrals: Rich Spivey MD [Primary Care Provider] - Forms: ED Satisfaction Letter Time of Disposition: 11:58 GI Bleed HPI - General Chief complaint: ED GI Bleed Stated complaint: Black stool/diarrhea Time Seen by Provider: 07/08/17 09:48 Source: patient, family Mode of arrival: ambulatory Limitations: no limitations Nursing Notes Reviewed: Yes Vital Signs Reviewed: Yes - History of Present Illness HPI Narrative: 76-year-old male history of recurrent bladder cancer s/p right nephrectomy presents emergency department with complaint of black stool diarrhea. For past 2 days he has noticed a loose stools that appear dark. He is also complaining of left lower quadrant pain for the past 4 to 5 days. He was seen by his primary care physician and diagnosed clinically for diverticulitis taking Cipro and Flagyl. He felt sick after taking the Flagyl has only taken a few doses. Also on he finishes 6th and final chemo treatment after total 6 weekly treatments. His oncologist is Dr. Rodney. His urologist is Dr. Menard. He denies any fevers, cough or chest pain. He does feel weaker and more fatigue. He has not been eating or drinking as well. A year ago he was initially diagnosed with bladder cancer and required a nephrectomy as it went up his ureter, at 3 month check up there was recurrence of bladder cancer. Pt Subjective Complaint: melena - Related Data Home Medications Medication Instructions Recorded Confirmed Glucosamine/D3/Boswellia Cris 2 tab PO HS 03/09/16 07/08/17 [Osteo Bi-Flex Tablet] Lansoprazole [Prevacid] 30 mg PO HS 03/09/16 07/08/17 Polyethylene Glycol 3350 [MiraLAX] 17 gm PO DAILY 03/09/16 07/08/17 Ubidecarenone [Co Q-10] 200 mg PO 1200 03/09/16 07/08/17 Gabapentin [Neurontin] 300 mg PO TID 04/20/16 07/08/17 Glimepiride [Amaryl] 4 mg PO DAILY 04/20/16 07/08/17 Lisinopril [Zestril] 20 mg PO DAILY 04/20/16 07/08/17 Aspirin 81 mg PO DAILY 12/29/16 07/08/17 Docusate Sodium [Dok] 100 mg PO HS 12/29/16 07/08/17 Escitalopram [Lexapro] 10 mg PO 1200 12/29/16 07/08/17 Levothyroxine [Synthroid] 50 mcg PO 0612/29/16 07/08/17 Multivit-Min/FA/Lycopen/Lutein 1 tab PO HS 12/29/16 07/08/17 [Centrum Silver Tablet] Pravastatin Sodium [Pravachol] 40 mg PO 1200 12/29/16 07/08/17 Vitamin B Complex Vit C No.4 1 tab PO HS 12/29/16 07/08/17 [Super B Complex] Acetaminophen [Pain Relief] 1,000 mg PO DAILY 02/21/17 07/08/17 Meloxicam [Mobic] 7.5 mg PO 1200 05/31/17 07/08/17 Ciprofloxacin HCl [Cipro] 500 mg PO BID 07/08/17 07/08/17 Oxybutynin [Ditropan] 5 mg PO HS 07/08/17 07/08/17 Previous Rx's Medication Instructions Recorded Metformin HCl [Glucophage] 1,000 mg PO BID #90 12/30/16 Allergies Allergy/AdvReac Type Severity Reaction Status Date / Time Penicillins Allergy Hives Verified 07/08/17 11:21 All systems ED: reviewed and negative except as stated. Review of Systems: As Per HPI Constitutional: Reports: weakness. Denies: fever, chills Cardiovascular: Denies: chest pain, syncope Respiratory: Denies: cough, dyspnea Gastrointestinal: Reports: abdominal pain, diarrhea, melena. Denies: nausea, vomiting, hematemesis, hematochezia Genitourinary: Denies: urgency, dysuria Musculoskeletal: Denies: back pain, neck pain Integumentary: Denies: rash Neurological: Denies: headache Past Medical History - Past Medical History Attestation: Yes The following information was validated with the patient. Source: patient Medical history: Reports: cancer, coronary artery disease, diabetes, GERD, hyperlipidemia, hypertension, kidney stones, thyroid disease Surgical history: Reports: cataract, other Psychiatric history: Reports: no psych history - Social History Smoking Status: Former smoker Smokeless Tobacco Status: No Alcohol use: Reports: rarely Drug use: Reports: none Physical Exam - General Limitations: no limitations General appearance: alert, in no apparent distress - Head Head exam: atraumatic, normocephalic, normal inspection - Eye Eye exam: Present: normal appearance, PERRL, EOMI. Absent: scleral icterus - ENT ENT exam: normal exam, normal oropharynx, mucous membranes moist - Neck Neck exam: Present: normal inspection, full ROM, trachea midline - Chest Chest inspection: Present: normal inspection, symmetric chest wall rise. Absent : tenderness - Respiratory Respiratory exam: Present: normal lung sounds bilaterally - Cardiovascular Cardiovascular exam: Present: regular rate, normal rhythm, normal heart sounds. Absent: systolic murmur, diastolic murmur - Abdominal Exam Abdominal exam: Present: soft, tenderness, normal bowel sounds, scar (right mid abdomen x2 from nephrectomy). Absent: Non-Tender, distention, guarding, rebound , rigidity, tenderness at McBurney's Point Abdominal tenderness: Present: LLQ - Rectal Exam Fur Cutter present during exam: Yes Rectal exam: Present: normal inspection, normal rectal tone, heme (-) stool. Absent: black stool, bloody stool - Extremities Exam Extremities exam: Present: normal inspection, full ROM, normal capillary refill. Absent: tenderness, pedal edema, calf tenderness - Back Exam Back exam: Present: normal inspection, full ROM. Absent: tenderness, CVA tenderness (R), CVA tenderness (L), paraspinal tenderness - Neurological Exam Neurological exam: Present: alert, oriented X3 - Psychiatric Psychiatric exam: Present: normal affect, normal mood - Skin Skin exam: Present: warm, dry, intact, normal color. Absent: rash, cyanosis, diaphoresis Course Course Narrative: Patient just completed chemotherapy. He is complaining of left lower quadrant abdominal pain with reports of blacks stool. Abdomen is soft but mildly tender in the left lower quadrant with some voluntary guarding. No rebound tenderness. Rectal exam showed normal tone without black or bloody stool. Guaic negative. Patient has some chronic anemia that appears baseline. He does have a single kidney in his creatinine function has worsen to 1.9. CT scan of his abdomen confirmed acute diverticulitis, no abscess. Given his acute kidney injury and symptoms of some fatigue and weakness will make him for further evaluation and management. Patients receiving IV fluids, Cipro and Flagyl to treat for his diverticulitis. Patients in agreement with this plan. Impression is acute kidney injury and diverticulitis. Will attempt to test for C.diff given recent flagyl medication and report of loose diarrhea. No recent hospitalization. - Consultations Consultation #1: Spoke with on-call hospitalist idalmis Abreu to admit for acute kidney injury, single kidney, diverticulitis. No further orders at this time Time: 11:57 Vital Signs Temperature 98.9 F 07/08/17 09:42 Pulse Rate 85 07/08/17 09:42 Respiratory Rate 16 07/08/17 09:42 Blood Pressure 121/81 07/08/17 09:42 O2 Sat by Pulse Oximetry 97 07/08/17 09:42 Temperature 98.9 F 07/08/17 09:42 Pulse Rate 88 07/08/17 10:41 Respiratory Rate 16 07/08/17 09:42 Blood Pressure 121/81 07/08/17 09:42 O2 Sat by Pulse Oximetry 97 07/08/17 10:41 Oxygen Delivery Oxygen Delivery Room Air GI Bleed - MDM Narrative Medical decision making narrative: Patient was discussed with my attending physician who agrees with ED management and final disposition. They independently evaluated the patient. Please refer to their attestation to this encounter for additional information. This note was generated by [employer] voice recognition software and as a result grammatical or spelling errors may occur using this program. - Medical Records Medical records reviewed: Yes I reviewed the patient's medical records. - Lab Data Lab results reviewed: Yes I reviewed the patient's lab results. Result diagrams: 07/08/17 10:17 07/08/17 10:17 Lab Results 07/08/17 07/08/17 07/08/17 Range/Units 10:17 10:17 10:17 WBC 6.9 (4.3-11.1) K/mcL RBC 3.81 L (4.19-5.50) M/mcL Hgb 11.9 L (12.9-16.9) g/dL Hct 34.8 L (37.5-50.1) % MCV 91.3 (83.0-100.0) fL MCH 31.2 (28.0-33.3) pg MCHC 34.2 (31.6-35.5) g/dL RDW 12.8 (11.5-14.5) % Plt Count 191 (140-400) K/mcL MPV 9.2 L (9.4-12.4) fL Immature Gran % 0.4 (0-4) % Seg Neutrophils % 59.2 % Lymphocytes % 26.9 % Monocytes % 11.9 % Eosinophils % 1.3 % Basophils % 0.3 % Neutrophils # 4.1 (1.6-8.9) K/mcL Lymphocytes # 1.9 (0.6-4.6) K/mcL Monocytes # 0.8 (0.0-1.3) K/mcL Eosinophils # 0.1 (0.0-0.6) K/mcL Basophils # 0.0 (0.0-0.2) K/mcL PT 12.2 H (9.4-12.1) Seconds INR 1.1 APTT 30.0 (26.0-36.0) Seconds Sodium 136 (136-145) mEq/L Potassium 4.7 (3.5-5.1) mEq/L Chloride 108 H (98-107) mEq/L Carbon Dioxide 21 L (23-29) mEq/L BUN 44 H (8-23) mg/dL Creatinine 1.90 H (0.70-1.30) mg/dL Est GFR ( Amer) 42 L (> 60) Est GFR (Non-Af Amer) 35 L (> 60) BUN/Creatinine Ratio 23 (6-26) Glucose 169 H (70-105) mg/dL Calculated Osmolality 297 (280-300) Calcium 9.1 (8.6-10.3) mg/dL Troponin I (< 0.04) ng/mL Urine Color (Yellow) Urine Clarity (Clear) Urine pH (5.0-8.0) pH Units Ur Specific [place] (1.010-1.025) Urine Protein (Neg-Trace) mg/dL Urine Glucose (UA) (Normal) mg/dL Urine Ketones (Negative) mg/dL Urine Blood (Negative) Urine Nitrite (Negative) Urine Bilirubin (Negative) Urine Urobilinogen (Normal) mg/dL Ur Leukocyte Esterase (Negative) Urine Microscopic RBC (0-3) per hpf Urine Microscopic WBC (0-3) per hpf Ur Squamous Epith Cells (None-Few) per lpf Urine Bacteria (None-Few) per hpf Hyaline Casts (None-Few) per lpf Ur Culture Indicated? (NO) Blood Type Antibody Screen 07/08/17 07/08/17 07/08/17 Range/Units 10:17 10:17 10:24 WBC (4.3-11.1) K/mcL RBC (4.19-5.50) M/mcL Hgb (12.9-16.9) g/dL Hct (37.5-50.1) % MCV (83.0-100.0) fL MCH (28.0-33.3) pg MCHC (31.6-35.5) g/dL RDW (11.5-14.5) % Plt Count (140-400) K/mcL MPV (9.4-12.4) fL Immature Gran % (0-4) % Seg Neutrophils % % Lymphocytes % % Monocytes % % Eosinophils % % Basophils % % Neutrophils # (1.6-8.9) K/mcL Lymphocytes # (0.6-4.6) K/mcL Monocytes # (0.0-1.3) K/mcL Eosinophils # (0.0-0.6) K/mcL Basophils # (0.0-0.2) K/mcL PT (9.4-12.1) Seconds INR APTT (26.0-36.0) Seconds Sodium (136-145) mEq/L Potassium (3.5-5.1) mEq/L Chloride (98-107) mEq/L Carbon Dioxide (23-29) mEq/L BUN (8-23) mg/dL Creatinine (0.70-1.30) mg/dL Est GFR ( Amer) (> 60) Est GFR (Non-Af Amer) (> 60) BUN/Creatinine Ratio (6-26) Glucose (70-105) mg/dL Calculated Osmolality (280-300) Calcium (8.6-10.3) mg/dL Troponin I < 0.03 (< 0.04) ng/mL Urine Color Yellow (Yellow) Urine Clarity Cloudy A (Clear) Urine pH 5.5 (5.0-8.0) pH Units Ur Specific [place] 1.023 (1.010-1.025) Urine Protein 30 H (Neg-Trace) mg/dL Urine Glucose (UA) Normal (Normal) mg/dL Urine Ketones Trace H (Negative) mg/dL Urine Blood Large H (Negative) Urine Nitrite Negative (Negative) Urine Bilirubin Negative (Negative) Urine Urobilinogen Normal (Normal) mg/dL Ur Leukocyte Esterase Moderate H (Negative) Urine Microscopic RBC 50-100 H (0-3) per hpf Urine Microscopic WBC TNTC H (0-3) per hpf Ur Squamous Epith Cells Moderate H (None-Few) per lpf Urine Bacteria None Seen (None-Few) per hpf Hyaline Casts Few (None-Few) per lpf Ur Culture Indicated? YES A (NO) Blood Type O NEGATIVE Antibody Screen NEGATIVE - Radiology Data Radiology results reviewed: Yes I reviewed the patient's radiology results. Abdomen/Pelvis CT 07/08/17 10:10 IMPRESSION: 1. Diverticulosis with mild regional inflammatory change may represent a limited acute diverticulitis. 2. Urinary bladder wall thickening with focus of air identified within. Regional inflammation around the bladder is also identified. 3. Vascular calcifications versus nonobstructive calculi in the left renal collecting system. D/ / Jt Doan / Jt Doan Interpreting Provider: Jt Doan - EKG Data EKG attestation: Yes I reviewed and interpreted this EKG. Attestation Statement - Attestation Attestation: I, Diego Kaminski DO, examined this patient [id number] and my medical decision-making was reviewed with Rodney Krishnan DO , Resident Physician. I agree with the documented findings, disposition and treatment plan as described except to the extent set forth below. Please see my progress notes for details.
[2017-07-08] MEDS ORDERED: 0.9 % Sodium Chloride 1,000 ML IVC ONE (10:17)
[2017-07-08 10:27] LABS: Basophils % 0.3 %; Eosinophils # 0.1 K/mcL (0.0-0.6); Eosinophils % 1.3 %; Hematocrit 34.8 % (37.5-50.1); Hemoglobin 11.9 g/dL (12.9-16.9); Immature Granulocytes % 0.4 % (0-4); Lymphocytes # 1.9 K/mcL (0.6-4.6); Lymphocytes % 26.9 %; Mean Corpuscular HGB Conc 34.2 g/dL (31.6-35.5); Mean Corpuscular Hemoglobin 31.2 pg (28.0-33.3); Mean Corpuscular Volume 91.3 fL (83.0-100.0); Mean Platelet Volume 9.2 fL (9.4-12.4); Monocytes # 0.8 K/mcL (0.0-1.3); Monocytes % 11.9 %; Neutrophils # 4.1 K/mcL (1.6-8.9); Platelet Count 191 K/mcL (140-400); Red Blood Count 3.81 M/mcL (4.19-5.50); Red Cell Distribution Width 12.8 % (11.5-14.5); Segmented Neutrophils % 59.2 %
[2017-07-08 10:32] LABS: INR 1.1; Prothrombin Time 12.2 Seconds (9.4-12.1)
[2017-07-08 10:33] LABS: Bilirubin,Urine Negative (Negative); Blood,Urine Large (Negative); Clarity,Urine Cloudy (Clear); Color,Urine Yellow (Yellow); Glucose,Urine (UA) Normal (Normal); Ketones,Urine Trace mg/dL (Negative); Leukocyte Esterase,Urine Moderate (Negative); Nitrite,Urine Negative (Negative); PH,Urine 5.5 pH Units (5.0-8.0); Protein,Urine 30 mg/dL (Neg-Trace); Specific Gravity,Urine 1.023 (1.010-1.025); Urobilinogen,Urine Normal (Normal)
[2017-07-08 10:35] LABS: Bacteria,Urine None Seen per hpf (None-Few); Hyaline Casts,Urine Few per lpf (None-Few); Squamous Epithelial Cell,Urine Moderate per lpf (None-Few); WBC,Urine TNTC per hpf (0-3)
[2017-07-08 10:46] LABS: Calcium 9.1 mg/dL (8.6-10.3); Potassium 4.7 mEq/L (3.5-5.1)
[2017-07-08 10:48] LABS: RBC,Urine 50-100 per hpf (0-3)
--- NOTE | 2017-07-08 10:55 | Emergency Department Note ---
Disposition Clinical Impression: Acute kidney injury, Diverticulitis, Dehydration Disposition: Admitted As Inpatient Condition: Fair Time of Disposition: 12:16 General Adult HPI - General Chief complaint: ED GI Bleed Stated complaint: Black stool/diarrhea Time Seen by Provider: 07/08/17 09:48 Source: patient, family Mode of arrival: ambulatory Limitations: no limitations - History of Present Illness Pain Scale: 0 - Related Data Home Medications Medication Instructions Recorded Confirmed Glucosamine/D3/Boswellia Cris 2 each PO DAILY 03/09/16 06/28/17 [Osteo Bi-Flex Tablet] Lansoprazole [Prevacid] 30 mg PO DAILY 03/09/16 06/28/17 Polyethylene Glycol 3350 [MiraLAX] 17 gm PO DAILY 03/09/16 06/28/17 Ubidecarenone [Co Q-10] 200 mg PO DAILY 03/09/16 06/28/17 Gabapentin [Neurontin] 300 mg PO TID 04/20/16 06/28/17 Glimepiride [Amaryl] 4 mg PO DAILY 04/20/16 06/28/17 Lisinopril [Zestril] 20 mg PO DAILY 04/20/16 06/28/17 Aspirin 81 mg PO DAILY 12/29/16 06/28/17 Docusate Sodium [Dok] 100 mg PO DAILY 12/29/16 06/28/17 Escitalopram [Lexapro] 10 mg PO DAILY 12/29/16 06/28/17 Levothyroxine [Synthroid] 50 mcg PO 0630 12/29/16 06/28/17 Multivit-Min/FA/Lycopen/Lutein 1 tab PO DAILY 12/29/16 06/28/17 [Centrum Silver Tablet] Pravastatin Sodium [Pravachol] 40 mg PO DAILY 12/29/16 06/28/17 Vitamin B Complex Vit C No.4 1 tab PO DAILY 12/29/16 06/28/17 [Super B Complex] Acetaminophen [Pain Relief] 1,000 mg PO DAILY 02/21/17 06/28/17 Meloxicam [Mobic] 7.5 mg PO DAILY 05/31/17 06/28/17 Ciprofloxacin HCl [Cipro] 500 mg PO BID 07/08/17 07/08/17 Oxybutynin [Ditropan] 5 mg PO HS 07/08/17 07/08/17 Previous Rx's Medication Instructions Recorded Metformin HCl [Glucophage] 1,000 mg PO BID #90 12/30/16 Allergies Allergy/AdvReac Type Severity Reaction Status Date / Time Penicillins Allergy Hives Verified 07/08/17 11:21 Past Medical History - Past Medical History Medical history: Reports: cancer, coronary artery disease, diabetes, GERD, hyperlipidemia, hypertension, kidney stones, thyroid disease Surgical history: Reports: cataract, other Psychiatric history: Reports: no psych history - Social History Smoking Status: Former smoker Smokeless Tobacco Status: No Alcohol use: Reports: rarely Drug use: Reports: none Physical Exam - General Limitations: no limitations General appearance: alert, in no apparent distress Course Vital Signs Temperature 98.9 F 07/08/17 09:42 Pulse Rate 85 07/08/17 09:42 Respiratory Rate 16 07/08/17 09:42 Blood Pressure 121/81 07/08/17 09:42 O2 Sat by Pulse Oximetry 97 07/08/17 09:42 Temperature 98.9 F 07/08/17 09:42 Pulse Rate 63 07/08/17 11:42 Respiratory Rate 16 07/08/17 09:42 Blood Pressure 126/66 07/08/17 11:42 O2 Sat by Pulse Oximetry 98 07/08/17 11:42 Oxygen Delivery Oxygen Delivery Room Air Medical Decision Making - Lab Data Result diagrams: 07/08/17 10:17 07/08/17 10:17 Lab Results 07/08/17 07/08/17 07/08/17 Range/Units 10:17 10:17 10:17 WBC 6.9 (4.3-11.1) K/mcL RBC 3.81 L (4.19-5.50) M/mcL Hgb 11.9 L (12.9-16.9) g/dL Hct 34.8 L (37.5-50.1) % MCV 91.3 (83.0-100.0) fL MCH 31.2 (28.0-33.3) pg MCHC 34.2 (31.6-35.5) g/dL RDW 12.8 (11.5-14.5) % Plt Count 191 (140-400) K/mcL MPV 9.2 L (9.4-12.4) fL Immature Gran % 0.4 (0-4) % Seg Neutrophils % 59.2 % Lymphocytes % 26.9 % Monocytes % 11.9 % Eosinophils % 1.3 % Basophils % 0.3 % Neutrophils # 4.1 (1.6-8.9) K/mcL Lymphocytes # 1.9 (0.6-4.6) K/mcL Monocytes # 0.8 (0.0-1.3) K/mcL Eosinophils # 0.1 (0.0-0.6) K/mcL Basophils # 0.0 (0.0-0.2) K/mcL PT 12.2 H (9.4-12.1) Seconds INR 1.1 APTT 30.0 (26.0-36.0) Seconds Sodium 136 (136-145) mEq/L Potassium 4.7 (3.5-5.1) mEq/L Chloride 108 H (98-107) mEq/L Carbon Dioxide 21 L (23-29) mEq/L BUN 44 H (8-23) mg/dL Creatinine 1.90 H (0.70-1.30) mg/dL Est GFR ( Amer) 42 L (> 60) Est GFR (Non-Af Amer) 35 L (> 60) BUN/Creatinine Ratio 23 (6-26) Glucose 169 H (70-105) mg/dL Calculated Osmolality 297 (280-300) Calcium 9.1 (8.6-10.3) mg/dL Troponin I (< 0.04) ng/mL Urine Color (Yellow) Urine Clarity (Clear) Urine pH (5.0-8.0) pH Units Ur Specific Browning (1.010-1.025) Urine Protein (Neg-Trace) mg/dL Urine Glucose (UA) (Normal) mg/dL Urine Ketones (Negative) mg/dL Urine Blood (Negative) Urine Nitrite (Negative) Urine Bilirubin (Negative) Urine Urobilinogen (Normal) mg/dL Ur Leukocyte Esterase (Negative) Urine Microscopic RBC (0-3) per hpf Urine Microscopic WBC (0-3) per hpf Ur Squamous Epith Cells (None-Few) per lpf Urine Bacteria (None-Few) per hpf Hyaline Casts (None-Few) per lpf Ur Culture Indicated? (NO) Blood Type Antibody Screen 07/08/17 07/08/17 07/08/17 Range/Units 10:17 10:17 10:24 WBC (4.3-11.1) K/mcL RBC (4.19-5.50) M/mcL Hgb (12.9-16.9) g/dL Hct (37.5-50.1) % MCV (83.0-100.0) fL MCH (28.0-33.3) pg MCHC (31.6-35.5) g/dL RDW (11.5-14.5) % Plt Count (140-400) K/mcL MPV (9.4-12.4) fL Immature Gran % (0-4) % Seg Neutrophils % % Lymphocytes % % Monocytes % % Eosinophils % % Basophils % % Neutrophils # (1.6-8.9) K/mcL Lymphocytes # (0.6-4.6) K/mcL Monocytes # (0.0-1.3) K/mcL Eosinophils # (0.0-0.6) K/mcL Basophils # (0.0-0.2) K/mcL PT (9.4-12.1) Seconds INR APTT (26.0-36.0) Seconds Sodium (136-145) mEq/L Potassium (3.5-5.1) mEq/L Chloride (98-107) mEq/L Carbon Dioxide (23-29) mEq/L BUN (8-23) mg/dL Creatinine (0.70-1.30) mg/dL Est GFR ( Amer) (> 60) Est GFR (Non-Af Amer) (> 60) BUN/Creatinine Ratio (6-26) Glucose (70-105) mg/dL Calculated Osmolality (280-300) Calcium (8.6-10.3) mg/dL Troponin I < 0.03 (< 0.04) ng/mL Urine Color Yellow (Yellow) Urine Clarity Cloudy A (Clear) Urine pH 5.5 (5.0-8.0) pH Units Ur Specific Browning 1.023 (1.010-1.025) Urine Protein 30 H (Neg-Trace) mg/dL Urine Glucose (UA) Normal (Normal) mg/dL Urine Ketones Trace H (Negative) mg/dL Urine Blood Large H (Negative) Urine Nitrite Negative (Negative) Urine Bilirubin Negative (Negative) Urine Urobilinogen Normal (Normal) mg/dL Ur Leukocyte Esterase Moderate H (Negative) Urine Microscopic RBC 50-100 H (0-3) per hpf Urine Microscopic WBC TNTC H (0-3) per hpf Ur Squamous Epith Cells Moderate H (None-Few) per lpf Urine Bacteria None Seen (None-Few) per hpf Hyaline Casts Few (None-Few) per lpf Ur Culture Indicated? YES A (NO) Blood Type O NEGATIVE Antibody Screen NEGATIVE Attestation Statement - Attestation Attestation: I, Diego Kaminski DO, examined this patient [id number] and my medical decision-making was reviewed with Rodney Krishnan DO , Resident Physician. I agree with the documented findings, disposition and treatment plan as described except to the extent set forth below. Please see my progress notes for details. 76-year-old male presents to the emergency room for evaluation of abdominal pain dark colored stool and generalized malaise. Patient just completed his last dose of chemotherapy for bladder cancer approximately 4 days ago. Ever since he is having the treatment he has had difficulty with eating feeling generally weak as well as having abdominal discomfort and cramping. He was seen by his primary care provider in the start him on antibiotics treating his history of diverticulitis. Patient denies any fevers denies any chest pain has intermittent shortness of breath with exertion denies any nausea vomiting this time. He does have intermittent diarrhea that has no blood is just dark in color. No neurologic symptoms or headache or vision changes at this time. Physical exam shows uncomfortable appearing gentleman. Oral mucosa appears to be slightly dry. Oropharynx is patent trachea is midline lungs are clear heart is regular abdomen is soft he has no point tenderness guarding or rigidity. There is no visible signs of bruising or abnormality. Patient has no pain in the lower suprapubic region of the abdomen and denies any symptoms in the testicular region. Patient has no signs of pitting edema or extremity abnormalities at this point. Patient moves all 4 of his extremities with purpose she has no facial asymmetry and cranial nerves III through XII are grossly intact. Pulses are intact in the upper and lower extremities are symmetrical bilaterally. Patient will detailed workup completed here today with CBC chemistry electrolytes including magnesium as well as urinalysis and CT imaging of the abdomen to address any intra-abdominal pathology considering the context of his chemotherapy treatment as well as the diagnosis of diverticular disease. Patient has not been compliant with his medication regimen at this point. Patient will have the workup completed then discuss disposition. Symptoms could be secondary to the chemotherapy treatment but differential will be expanded considering the patient's medical history. See detailed documentation of the physical exam, medical intervention, medical decision-making and disposition in the resident physician's note. 1210 Hemoccult testing is negative here. CT shows possible diverticulitis. Patient does have new acute kidney insufficiency most likely secondary to dehydration patient does have a solitary kidney secondary to a nephrectomy because of bladder and ureter cancer. Patient's admission process will be completed for fluid resuscitation and evaluation. Otherwise patient is clinically stable. Hospitalist was contacted no other recommendations from them at this time. Admission process to be completed.
[2017-07-08] MEDS ORDERED: MetroNIDAZOLE 500 MG/100 ML 500 MG/100 ML BAG IVPB ONE (11:17)
[2017-07-08] MEDS ORDERED: *HR* Promethazine 25 MG/ML VIAL IVP PRN (12:19)
[2017-07-08] MEDS ORDERED: Naloxone 0.4 MG/ML INJ IVP PRN (12:19)
[2017-07-08] MEDS ORDERED: *HR* HYDROcodone/Acet 5/325 mg TABLET PO PRN (12:19)
[2017-07-08] MEDS ORDERED: Acetaminophen 325 MG TABLET PO PRN (12:19)
[2017-07-08] MEDS ORDERED: Ondansetron 4 MG/2 ML VIAL IVP PRN (12:19)
[2017-07-08] MEDS ORDERED: D5% in Water 1,000 ML IVC PRN (12:24)
[2017-07-08] MEDS ORDERED: Dextrose Gel 15 GM/37.5 ML TUBE PO PRN ×2 (12:24)
[2017-07-08] MEDS ORDERED: *HR* Dextrose 50 % in Water (Syg) 50 ML SYRINGE IVP PRN (12:24)
[2017-07-08] MEDS: 0.9 % Sodium Chloride 1,000 ML IVC SCH ×2 (13:17→22:58)
--- NOTE | 2017-07-08 13:57 | Internal Med History&Physical ---
Date of Encounter: 07/08/17 Time of Encounter: 12:40 Internal Medicine - H&P: HPI Chief complaint: Abdominal pain and melena Admitted From: Emergency Dept Plans for Post Hospital Care: Home History of present illness: Mr. 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 Now he presented emergency room with worsening abdominal pain and melena/dark colored stools. His CT of abdomen showed mild acute diverticulitis. He denied of any chest pain or shortness of breath. His hemoglobin around 11.9 Past Med Surg Social Fam HX - Past Medical History Medical history: arthritis, cancer, coronary artery disease, diabetes, GERD, hyperlipidemia, hypertension, kidney stones, thyroid disease Additional medical history: Esophagal reflex. Bleeding tendency. CAD. Bladder Ca. Depression. Neuropathy Psychiatric history: no psych history - Past Surgical History Surgical History: cataract, other Additional surgical history: Right kidney removed, heart cath (no STENTS) - Social History Smoking Status: Former smoker Smokeless Tobacco Status: No Alcohol use: rarely Drug use: none - Family History Father Adopted: No Family Member Ethnicity: Non- Living Status: Cause of : Prostate Cancer Hx Family Cardiac Disorders: No Hx Family Respiratory Disorders: No Hx Family Cancer: Yes (Prostate) Hx Family GI Disorders: No Hx Family Endocrine Disorder: Yes (mother--diabetes) Hx Family Neuromuscular Disorders: No Hx Family Neurologic Disorders: No Hx Family HEENT Disorders: No Hx Family Autoimmune Disorders: No Mother Living Status: Cause of : Colon cancer Hx Family Cardiac Disorders: Yes (Hypertension) Hx Family Cancer: Yes (Colon) Hx Family Endocrine Disorder: Yes (diabetes) Internal Medicine - H&P: Meds Glucosamine/D3/Boswellia Cris [Osteo Bi-Flex Tablet] 2 tab PO HS 03/09/16 [ History] Lansoprazole [Prevacid] 30 mg PO HS 03/09/16 [History] Polyethylene Glycol 3350 [MiraLAX] 17 gm PO DAILY 03/09/16 [History] Ubidecarenone [Co Q-10] 200 mg PO 1200 03/09/16 [History] Gabapentin [Neurontin] 300 mg PO TID 04/20/16 [History] Glimepiride [Amaryl] 4 mg PO DAILY 04/20/16 [History] Lisinopril [Zestril] 20 mg PO DAILY 04/20/16 [History] Aspirin 81 mg PO DAILY 12/29/16 [History] Docusate Sodium [Dok] 100 mg PO HS 12/29/16 [History] Escitalopram [Lexapro] 10 mg PO 1200 12/29/16 [History] Levothyroxine [Synthroid] 50 mcg PO 0630 12/29/16 [History] Multivit-Min/FA/Lycopen/Lutein [Centrum Silver Tablet] 1 tab PO HS 12/29/16 [ History] Pravastatin Sodium [Pravachol] 40 mg PO 1200 12/29/16 [History] Vitamin B Complex Vit C No.4 [Super B Complex] 1 tab PO HS 12/29/16 [History] Metformin HCl [Glucophage] 1,000 mg PO BID #90 12/30/16 [Rx] Acetaminophen [Pain Relief] 1,000 mg PO DAILY 02/21/17 [History] Meloxicam [Mobic] 7.5 mg PO 1200 05/31/17 [History] Ciprofloxacin HCl [Cipro] 500 mg PO BID 07/08/17 [History] Oxybutynin [Ditropan] 5 mg PO HS 07/08/17 [History] 3 Allergy/AdvReac Type Severity Reaction Status Date / Time Penicillins Allergy Hives Verified 07/08/17 11:21 All Systems PM: A 10-system review of systems was performed and is negative for pertinent findings except as documented above in the HPI. Review of systems: All the systems are reviewed everything is benign except the systems and symptoms I mentioned in the history of present illness - Constitutional Vitals: Temp Pulse Resp BP Pulse Ox 98.9 F 63 18 117/55 98 07/08/17 09:42 07/08/17 11:42 07/08/17 12:29 07/08/17 12:29 07/08/17 11:42 General appearance: Present: A&O X 3, no acute distress, answers questions appropriately - Head Head exam: Present: atraumatic, normal inspection - Neck Neck exam general surgery: Present: supple - Respiratory Respiratory exam: Present: decreased breath sounds. Absent: rales, respiratory distress, rhonchi, wheezes - Cardiovascular Cardiovascular exam: Present: RRR, +S1, +S2. Absent: tachycardia - GI/Abdominal GI/Abdominal exam: Present: normal bowel sounds, soft, tenderness (Moderate discomfort in the left lower quadrant region). Absent: rebound, rigid - Extremities Exam Extremities exam: Absent: calf tenderness, pedal edema, tenderness - Back Exam Back exam: Absent: CVA tenderness (L), CVA tenderness (R) - Neurological Exam Neurological exam: Present: alert, oriented X3 - Psychiatric Psychiatric exam: Present: normal affect, normal mood - Skin Skin exam: Absent: rash Internal Med - H&P Results - Labs CBC & Chem 7: 07/08/17 10:17 07/08/17 10:17 - Assessment and plan (1) Acute diverticulitis Current Visit: Yes Status: Acute Assessment and plan: Admit the patient into telemetry started him on IV hydration clear liquid diet failed outpatient oral antibiotic finish sander to IV antibiotic Cipro and Flagyl (2) Gastrointestinal hemorrhage with melena Current Visit: Yes Status: Acute Assessment and plan: Most likely upper G.I. bleed avoid anti platelet and anticoagulation stable hemoglobin around 11.9 cont close monitoring Serial Hb Clear liquid diet NPO after mid night will talk to GI in the morning for possible EGD He may need colonoscopy too, after his diverticulitis improves check iron profile (3) Acute kidney injury superimposed on CKD Current Visit: Yes Status: Acute Assessment and plan: Due to dehydration continue IV hydration creatinine slightly elevated than baseline continue close monitoring (4) Renal calculus, left Current Visit: Yes Status: Acute Assessment and plan: Non-obstructive no severe tenderness no further interventions needed now (5) DVT prophylaxis Current Visit: No Status: Acute Assessment and plan: On SCD's (6) HTN (hypertension) Current Visit: No Status: Acute Assessment and plan: Resumed all home medications Qualifiers: Hypertension type: essential hypertension Qualified Code(s): I10 - Essential (primary) hypertension (7) GERD (gastroesophageal reflux disease) Current Visit: No Status: Chronic Assessment and plan: On PPI IV b.i.d. Qualifiers: Esophagitis presence: without esophagitis Qualified Code(s): K21.9 - Gastro -esophageal reflux disease without esophagitis (8) T2DM (type 2 diabetes mellitus) Current Visit: No Status: Chronic Assessment and plan: Held all oral medication started him on insulin sliding scale Qualifiers: Diabetes mellitus assisted insulin use: without assisted use Diabetes mellitus complication status: without complication Qualified Code(s): E11.9 - Type 2 diabetes mellitus without complications - Time Spent With Patient Total time spent is greater than 50% in coordination of care (as documented) at patient's floor/unit and/or counseling patient:
[2017-07-08] MEDS: Gabapentin 300 MG CAPSULE PO SCH ×2 (16:23→20:20)
[2017-07-08] MEDS: Pantoprazole 40 MG VIAL IVP SCH (16:23)
[2017-07-08] MEDS: Insulin LISPRO 300 UNITS/3 ML VIAL SQ SCH ×2 (16:26→20:21)
[2017-07-08] MEDS ORDERED: *HR* Heparin 5,000 UNIT/ML VIAL SQ SCH (18:00)
[2017-07-08 18:13] LABS: Hematocrit 30.2 % (37.5-50.1); Hemoglobin 10.6 g/dL (12.9-16.9)
[2017-07-08] MEDS: MetroNIDAZOLE 500 MG/100 ML 500 MG/100 ML BAG IVPB SCH (20:18)
[2017-07-08] MEDS: Vitamin B Complex/Vit C/Vit E 1 EACH TABLET PO SCH (20:20)
[2017-07-09] MEDS: MetroNIDAZOLE 500 MG/100 ML 500 MG/100 ML BAG IVPB SCH ×3 (05:37→20:00)
[2017-07-09] MEDS: Pantoprazole 40 MG VIAL IVP SCH ×2 (05:38→16:47)
[2017-07-09 07:05] LABS: Basophils % 0.3 %; Eosinophils # 0.1 K/mcL (0.0-0.6); Eosinophils % 1.7 %; Hemoglobin 10.3 g/dL (12.9-16.9); Immature Granulocytes % 0.5 % (0-4); Lymphocytes % 31.5 %; Mean Corpuscular HGB Conc 34.3 g/dL (31.6-35.5); Mean Corpuscular Hemoglobin 31.5 pg (28.0-33.3); Mean Corpuscular Volume 91.7 fL (83.0-100.0); Mean Platelet Volume 9.3 fL (9.4-12.4); Monocytes # 0.8 K/mcL (0.0-1.3); Monocytes % 11.9 %; Neutrophils # 3.5 K/mcL (1.6-8.9); Platelet Count 174 K/mcL (140-400); Red Blood Count 3.27 M/mcL (4.19-5.50); Red Cell Distribution Width 12.5 % (11.5-14.5); Segmented Neutrophils % 54.1 %
[2017-07-09 07:13] LABS: BUN/Creatinine Ratio 21 (6-26); Blood Urea Nitrogen 29 mg/dL (8-23); Calcium 8.3 mg/dL (8.6-10.3); Carbon Dioxide 22 mEq/L (23-29); Chloride 110 mEq/L (98-107); Glucose 150 mg/dL (70-105); Osmolality,Calculated 291 (280-300); Potassium 4.4 mEq/L (3.5-5.1); Sodium 136 mEq/L (136-145); eGFR For African Americans > 60 (> 60); eGFR For Non-African Americans 51 (> 60)
[2017-07-09] MEDS: Insulin LISPRO 300 UNITS/3 ML VIAL SQ SCH ×4 (07:40→21:24)
[2017-07-09 09:23] LABS: Estimated Average Glucose 157 mg/dl; Hemoglobin A1C 7.1 %
[2017-07-09] MEDS: Gabapentin 300 MG CAPSULE PO SCH ×3 (09:44→20:01)
[2017-07-09] MEDS: Lisinopril 20 MG TABLET PO SCH (09:44)
[2017-07-09] MEDS ORDERED: (Ubidecarenone [Co Q-10] 200 MG) PO SCH (12:00)
--- NOTE | 2017-07-09 13:38 | Internal Med Progress Note ---
Date of Encounter: 07/09/17 Time of Encounter: 13:36 - Assessment and plan (1) Acute diverticulitis Current Visit: Yes Status: Acute Assessment and plan: Improving failed outpatient oral antibiotic Cont IV antibiotic Cipro and Flagyl (2) Gastrointestinal hemorrhage with melena Current Visit: Yes Status: Acute Assessment and plan: Most likely upper G.I. bleed avoid anti platelet and anticoagulation Hb dropped down to 10.3 from 11.9 cont close monitoring full liquid diet NPO after mid night Consulted GI for possible EGD He may need colonoscopy too, after his diverticulitis improves check iron profile (3) Acute kidney injury superimposed on CKD Current Visit: Yes Status: Acute Assessment and plan: Due to dehydration Improved continue close monitoring (4) Renal calculus, left Current Visit: Yes Status: Acute Assessment and plan: Non-obstructive no severe tenderness no further interventions needed now (5) DVT prophylaxis Current Visit: No Status: Acute Assessment and plan: On SCD's (6) HTN (hypertension) Current Visit: No Status: Acute Assessment and plan: Resumed all home medications Qualifiers: Hypertension type: essential hypertension Qualified Code(s): I10 - Essential (primary) hypertension (7) GERD (gastroesophageal reflux disease) Current Visit: No Status: Chronic Assessment and plan: On PPI IV b.i.d. Qualifiers: Esophagitis presence: without esophagitis Qualified Code(s): K21.9 - Gastro -esophageal reflux disease without esophagitis (8) T2DM (type 2 diabetes mellitus) Current Visit: No Status: Chronic Assessment and plan: Held all oral medication started him on insulin sliding scale Qualifiers: Diabetes mellitus buttermaker continuous churn insulin use: without mcfp use Diabetes mellitus complication status: without complication Qualified Code(s): E11.9 - Type 2 diabetes mellitus without complications - Time Spent With Patient Total time spent is greater than 50% in coordination of care (as documented) at patient's floor/unit and/or counseling patient: - Subjective Interval history: States he is feeling better now Denied any CP / SOB Abd pain also better No diarrhea Had BM this morning.. still has melena - Constitutional Vitals: Temp Pulse Resp BP Pulse Ox 97.9 F 64 16 128/66 96 07/09/17 11:41 07/09/17 11:41 07/09/17 11:41 07/09/17 11:41 06/04/18 11:41 General appearance: Present: A&O X 3, no acute distress, answers questions appropriately - Head Head exam: Present: atraumatic, normal inspection - Neck Neck exam general surgery: Present: supple - Respiratory Respiratory exam: Present: decreased breath sounds. Absent: rales, respiratory distress, rhonchi, wheezes - Cardiovascular Cardiovascular exam: Present: RRR, +S1, +S2. Absent: tachycardia - GI/Abdominal GI/Abdominal exam: Present: normal bowel sounds, soft. Absent: rebound, rigid, tenderness - Extremities Exam Extremities exam: Absent: calf tenderness, pedal edema, tenderness - Back Exam Back exam: Absent: CVA tenderness (L), CVA tenderness (R) - Neurological Exam Neurological exam: Present: alert, oriented X3 - Psychiatric Psychiatric exam: Present: normal affect, normal mood Internal Medicine: Result - Labs CBC & Chem 7: 07/09/17 06:16 07/09/17 06:16 Labs: Short CBC 07/08/17 07/09/17 Range/Units 18:02 06:16 WBC 6.4 (4.3-11.1) K/mcL Hgb 10.6 L 10.3 L (12.9-16.9) g/dL Hct 30.2 L 30.0 L (37.5-50.1) % Plt Count 174 (140-400) K/mcL Neutrophils # 3.5 (1.6-8.9) K/mcL BMP 07/09/17 06:16 Sodium 136 Potassium 4.4 Chloride 110 H Carbon Dioxide 22 L BUN 29 H Creatinine 1.36 H Glucose 150 H Calcium 8.3 L - ABG Interpretation ABG results: PT/INR, D-dimer PT 12.2 Seconds (9.4-12.1) H 07/08/17 10:17 - VTE Documentation of Mechanical Device: Intermittent pneumatic compression device Consult Discharge Plan - Plan Referrals: Rich Spivey MD [Primary Care Provider] -
--- NOTE | 2017-07-09 17:33 | Electrocardiograph Report ---
[place] [id number] Test Date: 2017-07-08 Pat Name: Clint William Department: 104 Room: 3A56 Gender: M Prenatal Teacher: JARRELL : 1940 Requested By: Rodney Krishnan Order Number: [id number] Reading MD: Sigrid Garcia Measurements Intervals [place] Rate: 75 P: 6 WI: 160 QRS: -47 QRSD: 106 T: 41 QT: 362 QTc: 391 Interpretive Statements SINUS RHYTHM LEFT ANTERIOR FASCICULAR BLOCK [QRS AXIS <= -45, QR IN I, RS IN II] Electronically Signed On 07-09-2017 17:31:53 EDT by Sigrid Garcia
[2017-07-09] MEDS: Vitamin B Complex/Vit C/Vit E 1 EACH TABLET PO SCH (20:01)
[2017-07-10] MEDS: MetroNIDAZOLE 500 MG/100 ML 500 MG/100 ML BAG IVPB SCH ×2 (04:50→13:45)
[2017-07-10] MEDS: Pantoprazole 40 MG VIAL IVP SCH (04:56)
[2017-07-10 06:59] LABS: Basophils % 0.4 %; Eosinophils # 0.2 K/mcL (0.0-0.6); Eosinophils % 2.1 %; Hematocrit 31.8 % (37.5-50.1); Hemoglobin 11.1 g/dL (12.9-16.9); Immature Granulocytes % 0.9 % (0-4); Lymphocytes # 2.1 K/mcL (0.6-4.6); Lymphocytes % 23.8 %; Mean Corpuscular HGB Conc 34.9 g/dL (31.6-35.5); Mean Corpuscular Hemoglobin 31.2 pg (28.0-33.3); Mean Corpuscular Volume 89.3 fL (83.0-100.0); Monocytes % 11.4 %; Neutrophils # 5.5 K/mcL (1.6-8.9); Platelet Count 191 K/mcL (140-400); Red Blood Count 3.56 M/mcL (4.19-5.50); Red Cell Distribution Width 12.3 % (11.5-14.5); Segmented Neutrophils % 61.4 %
[2017-07-10 07:19] LABS: BUN/Creatinine Ratio 13 (6-26); Blood Urea Nitrogen 17 mg/dL (8-23); Calcium 8.6 mg/dL (8.6-10.3); Carbon Dioxide 21 mEq/L (23-29); Chloride 106 mEq/L (98-107); Glucose 179 mg/dL (70-105); Osmolality,Calculated 286 (280-300); Potassium 4.2 mEq/L (3.5-5.1); Sodium 135 mEq/L (136-145); eGFR For African Americans > 60 (> 60); eGFR For Non-African Americans 51 (> 60)
[2017-07-10] MEDS: Gabapentin 300 MG CAPSULE PO SCH ×2 (08:59→13:43)
[2017-07-10] MEDS: Lisinopril 20 MG TABLET PO SCH (08:59)
[2017-07-10] MEDS: Insulin LISPRO 300 UNITS/3 ML VIAL SQ SCH ×2 (08:59→13:44)
[2017-07-10 11:11] VITALS: BP 146/78
--- NOTE | 2017-07-10 12:25 | Gastroenterology Consult Note ---
<Ephraim Galvez - Last Filed: 07/10/17 12:21> Date of Encounter: 07/10/17 Time of Encounter: 10:50 - Assessment and plan (1) Acute diverticulitis Status: Acute Assessment and plan: Complete course of Cipro and Flagyl. Start daily fiber supplement.Plan for colonoscopy in 2 -3 months as outpatient. Follow up in GI office in 4 weeks. (2) Gastrointestinal hemorrhage with melena Status: Acute Assessment and plan: Continue PPI. No further episodes of melena. Hgb stable at 11.1. Plan for EGD as outpatient along with colonoscopy. (3) GERD (gastroesophageal reflux disease) Status: Chronic Assessment and plan: Continue PPI. Qualifiers: Esophagitis presence: without esophagitis Qualified Code(s): K21.9 - Gastro -esophageal reflux disease without esophagitis - Time Spent With Patient Total time spent is greater than 50% in coordination of care (as documented) at patient's floor/unit and/or counseling patient: GI History of Present Illness - Data of Consult Patient: new to practice Consult date: 07/10/17 Requesting Physician: Martin Luna - Consult Narrative Reason for consult: Acute GI bleed History of present illness: Mr. William is a 76 year old male with PMHx of bladder cancer, CAD, DM, GERD , HLD, HTN, HE requiring CPAP who presented to the ED with LLQ abdominal pain for the past few day and was diagnosed with diverticulitis as an outpatient and started on Cipro and Flagyl. He presented to the ED with worsening abdomnal pain and melena. CT A/P showed diverticulosis with mild regional inflammatory change may represent a limited acute diverticulitis. He denied fever, chills, chest pain, shortness of breath, nausea, vomiting, hematochezia. We were consulted to evaluate his melena. He states he is feeling well and denies any further dark stools. His last BM was this morning and was brown in color. Procedures: None NSAIDs: Mobic, ASA Anticoagulation: None Past Med Surg Social Fam HX - Past Medical History Medical history: cancer, coronary artery disease, diabetes, GERD, hyperlipidemia , hypertension, kidney stones, thyroid disease Additional medical history: Esophagal reflex. Bleeding tendency. CAD. Bladder Ca. Depression. Neuropathy Psychiatric history: no psych history - Past Surgical History Surgical History: cataract, other Additional surgical history: Right kidney removed, heart cath (no STENTS) - Social History Smoking Status: Former smoker Smokeless Tobacco Status: No Alcohol use: rarely Drug use: none - Family History Father Adopted: No Family Member Ethnicity: Non- Living Status: Cause of : Prostate Cancer Hx Family Cardiac Disorders: No Hx Family Respiratory Disorders: No Hx Family Cancer: Yes (Prostate) Hx Family GI Disorders: No Hx Family Endocrine Disorder: Yes (mother--diabetes) Hx Family Neuromuscular Disorders: No Hx Family Neurologic Disorders: No Hx Family HEENT Disorders: No Hx Family Autoimmune Disorders: No Mother Living Status: Cause of : Colon cancer Hx Family Cardiac Disorders: Yes (Hypertension) Hx Family Cancer: Yes (Colon) Hx Family Endocrine Disorder: Yes (diabetes) - Gastrointestinal Gastrointestinal: Present: as per HPI - Constitutional Constitutional: as per HPI - EENT Eyes: as per HPI Ears: Present: as per HPI Nose, mouth and throat: Present: as per HPI - Cardiovascular Cardiovascular ROS: Present: as per HPI - Respiratory Respiratory IM: Present: as per HPI - Genitourinary Genitourinary: Absent: change in color, Urinary frequency - Neurological ROS Neurological GI: Present: as per HPI - Hematologic/Lymphatic Hematologic/Lymphatic pediatric: Present: as per HPI - Musculoskeletal Musculoskeletal ROS GI: Present: as per HPI - Integumentary Integumentary GI: Present: as per HPI - Psychiatric ROS Psychiatric GI: Present: as per HPI - Endocrine Endocrine IM: Present: as per HPI - Constitutional Vitals: Temp Pulse Resp BP Pulse Ox 98.2 F 69 14 146/78 97 07/10/17 11:10 07/10/17 11:10 07/10/17 11:10 07/10/17 11:10 07/10/17 11:10 General appearance: Present: cooperative, A&O X 3, no acute distress, answers questions appropriately - Head Head exam: Present: atraumatic, normocephalic - Eye Eye exam: Present: normal appearance, sclera anicteric - ENT ENT exam: Present: mucous membranes dry - Neck Neck exam general surgery: Present: normal inspection, trachea midline - Respiratory Respiratory exam: Present: CTAB. Absent: decreased breath sounds, rales, rhonchi - Cardiovascular Cardiovascular exam: Present: RRR, +S1, +S2 - GI/Abdominal GI/Abdominal exam: Present: soft, no peritoneal signs. Absent: distended, firm , guarding, tenderness - Rectal Rectal exam: Present: deferred - Extremities Exam Extremities exam: Present: warm - Neurological Exam Neurological exam: Present: no focal deficits - Psychiatric Psychiatric exam: Present: normal affect, normal mood - Skin Skin exam: Present: dry, intact, normal color, warm Results - Labs CBC & Chem 7: 07/10/17 06:39 07/10/17 06:39 Labs: Last Result Calcium 8.6 mg/dL (8.6-10.3) 07/10/17 06:39 Troponin I < 0.03 ng/mL (< 0.04) 07/08/17 10:17 Entire Visit Hgb 11.1 g/dL (12.9-16.9) L 07/10/17 06:39 Hct 31.8 % (37.5-50.1) L 07/10/17 06:39 PT 12.2 Seconds (9.4-12.1) H 07/08/17 10:17 - ABG ABG results: PT/INR, D-dimer PT 12.2 Seconds (9.4-12.1) H 07/08/17 10:17 Consult Discharge Plan - Plan Referrals: Rich Spivey MD [Primary Care Provider] - 07/16/17 3:30 pm Prescriptions: Ciprofloxacin HCl [Cipro] 500 mg PO BID #20 tablet metroNIDAZOLE [Flagyl] 500 mg PO TID #30 tablet <Sandy Allan - Last Filed: 07/10/17 17:34> Date of Encounter: 07/10/17 Time of Encounter: 13:00 - Time Spent With Patient Total time spent is greater than 50% in coordination of care (as documented) at patient's floor/unit and/or counseling patient: GI History of Present Illness - Data of Consult Requesting Physician: Martin Luna - Consult Narrative History of present illness: Mr. William is a 76 year old male - Constitutional Vitals: Temp Pulse Resp BP Pulse Ox 98.2 F 69 14 146/78 97 07/10/17 11:10 07/10/17 11:10 07/10/17 11:10 07/10/17 11:10 07/10/17 11:10 Results - Labs CBC & Chem 7: 07/10/17 06:39 07/10/17 06:39 Labs: Last Result Calcium 8.6 mg/dL (8.6-10.3) 07/10/17 06:39 Troponin I < 0.03 ng/mL (< 0.04) 07/08/17 10:17 Entire Visit Hgb 11.1 g/dL (12.9-16.9) L 07/10/17 06:39 Hct 31.8 % (37.5-50.1) L 07/10/17 06:39 PT 12.2 Seconds (9.4-12.1) H 07/08/17 10:17 - ABG ABG results: PT/INR, D-dimer PT 12.2 Seconds (9.4-12.1) H 07/08/17 10:17 - Attending Attestation I have personally performed a face to face evaluation on this patient. I have reviewed and agree with the care plan. History and Exam by me shows: Patient seen no active complaint. Did had the melena but hemoglobin is stable and the also was found to have diverticulitis. Recommendation: Amaury Calvo for diverticulitis and patient will be scheduled for EGD and colon in about 8 weeks. PPI daily , no nSAIDS
--- NOTE | 2017-07-10 14:30 | Discharge Summary ---
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 Diabetes mellitus complication status: without complication Qualified Code(s): E11.9 - Type 2 diabetes mellitus without complications (2) GERD (gastroesophageal reflux disease) Priority: Secondary Status: Chronic Qualifiers: Esophagitis presence: without esophagitis Qualified Code(s): K21.9 - Gastro -esophageal reflux disease without esophagitis (3) HTN (hypertension) Priority: Secondary Status: Acute Qualifiers: Hypertension type: essential hypertension Qualified Code(s): I10 - Essential (primary) hypertension (4) Acute kidney injury superimposed on CKD Priority: Secondary Status: Acute (5) Renal calculus, left Priority: Secondary Status: Acute (6) Acute diverticulitis Priority: Primary Status: Acute (7) Gastrointestinal hemorrhage with melena Priority: Secondary Status: Acute Hospital course: Patient is a 76-year-old male with past medical history significant for 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 Patient reported of left lower quadrant abdominal pain from last couple of days was diagnosed with a diverticulitis as an outpatient and started on oral ciprofloxacin and Flagyl. Patient presented emergency room with worsening abdominal pain and melena/dark colored stools. His CT of abdomen showed mild acute diverticulitis Patient was admitted to medical surgical floor for acute diverticulitis. During patients hospital stay his abdominal pain resolved with treatment of IV Cipro and Flagyl and patient is now medically stable to be discharged home to continue a 10 day course of Cipro and Flagyl and to follow-up with primary care provider. GI was consulted with recommendations to have a EGD/colonoscopy done as an outpatient. - Time Spent with Patient Total time spent providing and/or coordinating discharge services: Less than 30 minutes - Discharge Medications Prescriptions: Ciprofloxacin HCl [Cipro] 500 mg PO BID #20 tablet metroNIDAZOLE [Flagyl] 500 mg PO TID #30 tablet Home Medications: Glucosamine/D3/Boswellia Cris [Osteo Bi-Flex Tablet] 2 tab PO HS 03/09/16 [ History] Lansoprazole [Prevacid] 30 mg PO HS 03/09/16 [History] Polyethylene Glycol 3350 [MiraLAX] 17 gm PO DAILY 03/09/16 [History] Ubidecarenone [Co Q-10] 200 mg PO 1200 03/09/16 [History] Gabapentin [Neurontin] 300 mg PO TID 04/20/16 [History] Glimepiride [Amaryl] 4 mg PO DAILY 04/20/16 [History] Lisinopril [Zestril] 20 mg PO DAILY 04/20/16 [History] Aspirin 81 mg PO DAILY 12/29/16 [History] Docusate Sodium [Dok] 100 mg PO HS 12/29/16 [History] Escitalopram [Lexapro] 10 mg PO 1200 12/29/16 [History] Levothyroxine [Synthroid] 50 mcg PO 0630 12/29/16 [History] Multivit-Min/FA/Lycopen/Lutein [Centrum Silver Tablet] 1 tab PO HS 12/29/16 [ History] Pravastatin Sodium [Pravachol] 40 mg PO 1200 12/29/16 [History] Vitamin B Complex Vit C No.4 [Super B Complex] 1 tab PO HS 12/29/16 [History] Metformin HCl [Glucophage] 1,000 mg PO BID #90 12/30/16 [Rx] Acetaminophen [Pain Relief] 1,000 mg PO DAILY 02/21/17 [History] Meloxicam [Mobic] 7.5 mg PO 1200 05/31/17 [History] Oxybutynin [Ditropan] 5 mg PO HS 07/08/17 [History] Ciprofloxacin HCl [Cipro] 500 mg PO BID #20 tablet 07/10/17 [Rx] metroNIDAZOLE [Flagyl] 500 mg PO TID #30 tablet 07/10/17 [Rx] Allergies/Adverse Reactions: 3 Allergy/AdvReac Type Severity Reaction Status Date / Time Penicillins Allergy Hives Verified 07/08/17 11:21 Date of admission: 07/08/17 12:19 Primary care physician: Rich Spivey, Consults: 07/08/17 13:16 Consult to Nutrition [CONS] Routine Comment: Consulting Provider: NUTRITION Reason for Dietary Consult: MST Score 07/09/17 13:24 Consult to Gastroenterology [CONS] Routine Consulting Provider: Gastroenterology Aida Reason for Consult: Acute GI bleed / melena Time Notified: 13:25 Call Completed: Yes - Constitutional Vitals: Temp Pulse Resp BP Pulse Ox 98.2 F 69 14 146/78 97 07/10/17 11:10 07/10/17 11:10 07/10/17 11:10 07/10/17 11:10 07/10/17 11:10 General appearance: Present: A&O X 3, no acute distress, answers questions appropriately - Respiratory Respiratory exam: Present: CTAB. Absent: accessory muscle use, rales, rhonchi, wheezes - Cardiovascular Cardiovascular exam: Present: RRR, +S1, +S2. Absent: diastolic murmur, gallop, rubs, systolic murmur - GI/Abdominal GI/Abdominal exam: Present: normal bowel sounds, soft, no peritoneal signs. Absent: distended, tenderness - Patient Status Disposition: Home, Self-Care Condition: Good - Discharge Instructions Follow Up With: Rich Spivey MD [Primary Care Provider] - 07/16/17 3:30 pm - VTE Documentation of Mechanical Device: Intermittent pneumatic compression device
== END 2017-07-10 15:44 | disposition home or self-care (01) | DRG 378 ==
LOC: EMEROO 09:38 → 3ANU 09:38 → SUATTDRO 12:19 → 3ANU 12:37
PROVIDERS: ADMIT Family Medicine; ATTEND Hospitalist

== ENCOUNTER 2017-10-28 07:50 | Inpatient (IN) ==
[2017-10-28] MEDS ORDERED: 0.9 % Sodium Chloride 1,000 ML IVC ONE (08:25)
[2017-10-28] MEDS ORDERED: Ondansetron 4 MG/2 ML VIAL IVP ONE (08:25)
[2017-10-28] MEDS ORDERED: *HR* FentaNYL (PF) 100 MCG/2 ML VIAL IVP ONE ×2 (08:25→09:21)
--- NOTE | 2017-10-28 08:32 | Emergency Department Note ---
Disposition Clinical Impression: Flank pain, Elevated blood pressure reading Chronic kidney disease Qualifiers: Chronic kidney disease stage: unspecified stage Qualified Code(s): N18.9 - Chronic kidney disease, unspecified Urolithiasis Qualifiers: Urinary calculus location: other lower urinary tract location Qualified Code(s) : N21.8 - Other lower urinary tract calculus Disposition: Admitted As Inpatient Condition: Fair Referrals: Rich Spivey MD [Primary Care Provider] - Forms: ED Satisfaction Letter, Work/School Release Abdominal Pain HPI - General Chief Complaint: ED Abdominal Pain Stated Complaint: flank pain Time Seen by Provider: 10/28/17 08:19 Source: patient Mode of arrival: ambulatory Limitations: no limitations Nursing Notes Reviewed: Yes Vital Signs Reviewed: Yes - History of Present Illness HPI Narrative: 77 year old male with history of hypertension, diabetes, bladder cancer status post right nephrectomy presents for evaluation of left flank pain. Patient states he feels that he is having kidney stone. States that pain started proximally 5 or 5:30 this morning. Notes it to be left flank with radiation into his groin. States he does have do not kidney stones on that side. Patient has passed stones in the past and also required intervention. Patient denies any fevers. Patient does note some dry heaves. Patient denies any diarrhea or constipation. States that he has had a difficult time urinating. Does have known bladder cancer with metastases to his kidney. Patient states that he did undergo 2 rounds of chemotherapy in the past related to his bladder cancer. Pain Scale: 9 - Related Data Home Medications Medication Instructions Recorded Confirmed Glucosamine/D3/Boswellia Cris 2 tab PO HS 03/09/16 10/28/17 [Osteo Bi-Flex Tablet] Lansoprazole [Prevacid] 60 mg PO HS 03/09/16 10/28/17 Polyethylene Glycol 3350 [MiraLAX] 17 gm PO DAILY 03/09/16 10/28/17 Ubidecarenone [Co Q-10] 200 mg PO 1200 03/09/16 10/28/17 Gabapentin [Neurontin] 300 mg PO TID 04/20/16 10/28/17 Glimepiride [Amaryl] 4 mg PO DAILY PRN 04/20/16 10/28/17 Lisinopril [Zestril] 20 mg PO DAILY 04/20/16 10/28/17 Aspirin 81 mg PO DAILY 12/29/16 10/28/17 Docusate Sodium [Dok] 100 mg PO HS 12/29/16 10/28/17 Escitalopram [Lexapro] 20 mg PO 1200 12/29/16 10/28/17 Levothyroxine [Synthroid] 50 mcg PO 0630 12/29/16 10/28/17 Multivit-Min/FA/Lycopen/Lutein 1 tab PO HS 12/29/16 10/28/17 [Centrum Silver Tablet] Pravastatin Sodium [Pravachol] 40 mg PO 1200 12/29/16 10/28/17 Vitamin B Complex Vit C No.4 1 tab PO HS 12/29/16 10/28/17 [Super B Complex] Acetaminophen [Pain Relief] 1,000 mg PO DAILY 02/21/17 10/28/17 Meloxicam [Mobic] 7.5 mg PO 1200 05/31/17 10/28/17 Oxybutynin [Ditropan] 5 mg PO DAILY 09/28/17 10/28/17 Previous Rx's Medication Instructions Recorded Metformin HCl [Glucophage] 1,000 mg PO BID #90 12/30/16 Sodium Bicarbonate 1,300 mg PO AD #24 tablet 09/28/17 Allergies Allergy/AdvReac Type Severity Reaction Status Date / Time Penicillins Allergy Hives Verified 10/28/17 08:46 All systems ED: reviewed and negative except as stated. Constitutional: Denies: fever Cardiovascular: Denies: chest pain Respiratory: Denies: cough Gastrointestinal: Reports: vomiting. Denies: abdominal pain, nausea Abdominal Pain PMH - Past Medical History Medical history: Reports: cancer, coronary artery disease, diabetes, GERD, hyperlipidemia, hypertension, kidney stones, thyroid disease Male Surgical History: Reports: cataract, other Psychiatric history: Reports: depression - Social History Smoking status: Never smoker Alcohol use: Reports: none Drug use: Reports: none Physical Exam - General Limitations: no limitations General appearance: alert, in no apparent distress - Head Head exam: atraumatic, normocephalic, normal inspection - Eye Eye exam: Present: normal appearance, PERRL, EOMI - ENT ENT exam: normal exam, mucous membranes moist - Neck Neck exam: Present: normal inspection - Chest Chest inspection: Present: normal inspection, symmetric chest wall rise - Respiratory Respiratory exam: Present: normal lung sounds bilaterally, other (Shallow breath ). Absent: respiratory distress - Cardiovascular Cardiovascular exam: Present: regular rate, normal rhythm. Absent: systolic murmur - Abdominal Exam Abdominal exam: Present: soft, Non-Tender - Extremities Exam Extremities exam: Present: normal inspection. Absent: pedal edema - Expanded Lower Extremity Exam Neurovascular/Tendon exam: Present: normal capillary refill - Back Exam Back exam: Present: normal inspection - Neurological Exam Neurological exam: Present: alert, oriented X3, CN II-XII intact - Skin Skin exam: Present: warm, dry, intact, normal color Course Course Narrative: Patient presents for concerns of left flank pain. Patient does have a history of kidney stones on that side. States that it feels similar to his prior kidney stones. Patient has a solitary kidney given history of bladder cancer. Patient will get basic labs including a CAT scan of the abdomen pelvis. Urinalysis. Disposition likely admission. - Reevaluation(s) Reevaluation #1: Patient states the pain medicine to improve his pain. Patient's blood pressure also improved. We will give him second dose of pain medication. Time: 09:22 - Consultations Consultation #1: Dr. Menard aware of the patient. Consult placed and will be taken to the OR for intervention of urolithiasis. Time: 09:23 Vital Signs Temperature 98.1 F 10/28/17 07:54 Pulse Rate 66 10/28/17 07:54 Respiratory Rate 18 10/28/17 07:54 Blood Pressure 234/94 10/28/17 07:54 O2 Sat by Pulse Oximetry 98 10/28/17 07:54 Temperature 98.1 F 10/28/17 07:54 Pulse Rate 90 10/28/17 09:47 Respiratory Rate 20 10/28/17 09:47 Blood Pressure 181/81 10/28/17 09:47 O2 Sat by Pulse Oximetry 93 10/28/17 09:47 Oxygen Delivery Oxygen Delivery Room Air Abdominal Pain - MDM Narrative Medical decision making narrative: Patient presented for concerns of flank pain consistent with prior renal colic. Patient does have a solitary kidney given his history of bladder cancer with metastatic disease. Patient's workup in the ED reveals a kidney stone. Urology aware will take the patient to the OR for intervention. Urology did not want a Gonzalez catheter placed in the ED. Urinalysis was not obtained in the ED. Patient's labs show his kidney function is at baseline. Patient's blood pressure was initially hypertensive which improved after appropriate pain medication. Patient did receive IV fluids. Patient lactate was mildly elevated. Patient did receive IV fluids. Patient is not septic. Patient will be taken to the OR directly from the ED. Patient's symptoms are most consistent with his urolithiasis and not associated with aortic pathology or dissection. Patient did not get a contrasted CT scan given his solitary kidney. Patient will be admitted to the hospital service with urology consult. - Lab Data Lab results reviewed: Yes I reviewed the patient's lab results. Result diagrams: 10/28/17 08:35 10/28/17 08:35 Lab Results 10/28/17 10/28/17 10/28/17 Range/Units 08:35 08:35 08:35 WBC 10.5 (4.3-11.1) K/mcL RBC 4.04 L (4.19-5.50) M/mcL Hgb 13.1 (12.9-16.9) g/dL Hct 36.7 L (37.5-50.1) % MCV 90.8 (83.0-100.0) fL MCH 32.4 (28.0-33.3) pg MCHC 35.7 H (31.6-35.5) g/dL RDW 12.2 (11.5-14.5) % Plt Count 202 (140-400) K/mcL MPV 9.6 (9.4-12.4) fL Immature Gran % 0.4 (0-4) % Seg Neutrophils % 64.8 % Lymphocytes % 23.9 % Monocytes % 9.0 % Eosinophils % 1.7 % Basophils % 0.2 % Neutrophils # 6.8 (1.6-8.9) K/mcL Lymphocytes # 2.5 (0.6-4.6) K/mcL Monocytes # 0.9 (0.0-1.3) K/mcL Eosinophils # 0.2 (0.0-0.6) K/mcL Basophils # 0.0 (0.0-0.2) K/mcL Sodium 135 L (136-145) mEq/L Potassium 4.6 (3.5-5.1) mEq/L Chloride 103 (98-107) mEq/L Carbon Dioxide 21 L (23-29) mEq/L BUN 22 (8-23) mg/dL Creatinine 1.43 H (0.70-1.30) mg/dL Est GFR ( Amer) 58 L (> 60) Est GFR (Non-Af Amer) 48 L (> 60) BUN/Creatinine Ratio 15 (6-26) Glucose 181 H (70-105) mg/dL Calculated Osmolality 288 (280-300) Lactic Acid 2.9 H (0.5-2.2) mmol/L Calcium 9.8 (8.6-10.3) mg/dL Total Bilirubin 0.3 (0.3-1.0) mg/dL Direct Bilirubin 0.1 (0.0-0.2) mg/dL Indirect Bilirubin 0.2 (0.0-1.2) mg/dL AST 13 (13-39) Units/L ALT 9 (7-52) Units/L Alkaline Phosphatase 82 (34-104) Units/L Serum Total Protein 6.8 (6.4-8.9) g/dL Albumin 4.4 (3.5-5.7) g/dL Globulin 2.4 (2.4-3.5) g/dL Albumin/Globulin Ratio 1.8 (1.1-2.2) Lipase 46 (11-82) Units/L - Radiology Data Radiology results reviewed: Yes I reviewed the patient's radiology results. Abdomen/Pelvis CT 10/28/17 08:24 IMPRESSION: 1. The left kidney demonstrates a 7 mm obstructing UPJ/proximal ureteral calculus with numerous more proximal calculi in the UPJ. This results in moderate hydronephrosis with perinephric stranding. At the left UVJ there is a 3 mm calculus. The intervening ureter between the proximal distal calculi is decompressed. Multiple non-obstructing left nephroliths. 2. 1.6 cm pancreatic tail cystic lesion which appears nonaggressive though has increased in size over numerous prior exams. Further evaluation with dedicated MRI with/without contrast is recommended. D/ / Shaquille Villalta MD / Shaquille Villalta MD Interpreting Provider: Shaquille Villalta MD - EKG Data EKG attestation: Yes I reviewed and interpreted this EKG. EKG shows normal: sinus rhythm Rate: normal Rhythm: NSR Morrow/QRS: left axis deviation, LAHB/LAFB Voltage: increased voltage throughout When compared to previous EKG there are: no significant changes Interpretation: no acute changes, nonspecific ST-T wave changes S.B.A.RArchana - [place].Kenji Situation: Demographics Background: Presenting Complaint Assessment: Vital Signs, Course and respsone to treatment, Patient/Family Expectation Recommendation: Barrier(s) to disposition, Recommendation based on pending studies, treatments, or consults S.B.A.RArchana Report Given to: Dr. Jairon Griffith Repor Time: 09:38
[2017-10-28 08:49] LABS: Basophils % 0.2 %; Eosinophils # 0.2 K/mcL (0.0-0.6); Eosinophils % 1.7 %; Hematocrit 36.7 % (37.5-50.1); Hemoglobin 13.1 g/dL (12.9-16.9); Immature Granulocytes % 0.4 % (0-4); Lymphocytes # 2.5 K/mcL (0.6-4.6); Lymphocytes % 23.9 %; Mean Corpuscular HGB Conc 35.7 g/dL (31.6-35.5); Mean Corpuscular Hemoglobin 32.4 pg (28.0-33.3); Mean Corpuscular Volume 90.8 fL (83.0-100.0); Mean Platelet Volume 9.6 fL (9.4-12.4); Monocytes # 0.9 K/mcL (0.0-1.3); Neutrophils # 6.8 K/mcL (1.6-8.9); Platelet Count 202 K/mcL (140-400); Red Blood Count 4.04 M/mcL (4.19-5.50); Red Cell Distribution Width 12.2 % (11.5-14.5); Segmented Neutrophils % 64.8 %
[2017-10-28 09:10] LABS: Alanine Aminotransferase 9 Units/L (7-52); Albumin 4.4 g/dL (3.5-5.7); Albumin/Globulin Ratio 1.8 (1.1-2.2); Alkaline Phosphatase 82 Units/L (34-104); Aspartate Amino Transferase 13 Units/L (13-39); BUN/Creatinine Ratio 15 (6-26); Bilirubin,Direct 0.1 mg/dL (0.0-0.2); Bilirubin,Indirect 0.2 mg/dL (0.0-1.2); Bilirubin,Total 0.3 mg/dL (0.3-1.0); Blood Urea Nitrogen 22 mg/dL (8-23); Calcium 9.8 mg/dL (8.6-10.3); Carbon Dioxide 21 mEq/L (23-29); Chloride 103 mEq/L (98-107); Globulin 2.4 g/dL (2.4-3.5); Glucose 181 mg/dL (70-105); Lipase 46 Units/L (11-82); Osmolality,Calculated 288 (280-300); Potassium 4.6 mEq/L (3.5-5.1); Sodium 135 mEq/L (136-145); Total Protein 6.8 g/dL (6.4-8.9); eGFR For Non-African Americans 48 (> 60)
--- NOTE | 2017-10-28 09:39 | Urology - Consult Note ---
Date of Encounter: 10/28/17 Time of Encounter: 09:36 - Assessment and Plan (1) Solitary left kidney Current Visit: Yes Status: Acute Assessment and plan: Secondary to right nephroureterectomy from invasive urothelial cancer. (2) Hypertensive urgency Current Visit: Yes Status: Acute Assessment and plan: Management per primary team. Patient to be brought into the hospital for observation and pain control. (3) Ureteral stone with hydronephrosis Current Visit: No Status: Resolved Assessment and plan: We will take the patient to the operating room urgently for cystoscopy and left ureteral stent placement. Patient's serum creatinine is stable at this time the patient likely having no urine output secondary to obstruction of only kidney. Urology CN:HPI Consult date: 10/28/17 Reason for consult Urology: Hydronephrosis Requesting physician: Pasquale Chandler History of present illness: Clint is a 77-year-old male well known to me secondary to invasive bladder cancer. Patient is status post a right nephroureterectomy in the past. Patient is scheduled for cystectomy and ileal conduit in November. Patient presents to the emergency department this morning secondary to severe left- sided flank pain. Patient states the pain started last night and has worsened. Currently a 10 and a 10 in nature. Patient also found to have severely elevated blood pressure upon arrival to the hospital. Patient was found to have large volume proximal ureteral stones on the left side. Patient with significant left-sided hydronephrosis. Patient with minimal output since last night. No current fevers. Patient with nausea without vomiting. Past Med Surg Social Fam HX - Past Medical History Medical history: cancer, coronary artery disease, diabetes, GERD, hyperlipidemia , hypertension, kidney stones, thyroid disease Additional medical history: Bladder Cancer Psychiatric history: depression - Past Surgical History Surgical History: cancer surgery, cataract, orthopedic, other, other Additional surgical history: Right nephrectomy, heart cath (no STENTS), bladder surgery - Social History Smoking Status: Never smoker Smokeless Tobacco Status: No Alcohol use: none Drug use: none - Family History Father Adopted: No Family Member Ethnicity: Non- Living Status: Hx Family Cardiac Disorders: No Hx Family Respiratory Disorders: No Hx Family Cancer: Yes (Prostate) Hx Family GI Disorders: No Hx Family Endocrine Disorder: Yes (mother--diabetes) Hx Family Neuromuscular Disorders: No Hx Family Neurologic Disorders: No Hx Family HEENT Disorders: No Hx Family Autoimmune Disorders: No Mother Living Status: Hx Family Cardiac Disorders: Yes (Hypertension) Hx Family Cancer: Yes (Colon) Hx Family Endocrine Disorder: Yes (diabetes) Medications and Allergies Glucosamine/D3/Boswellia Cris [Osteo Bi-Flex Tablet] 2 tab PO HS 03/09/16 [ History] Lansoprazole [Prevacid] 60 mg PO HS 03/09/16 [History] Polyethylene Glycol 3350 [MiraLAX] 17 gm PO DAILY 03/09/16 [History] Ubidecarenone [Co Q-10] 200 mg PO 1200 03/09/16 [History] Gabapentin [Neurontin] 300 mg PO TID 04/20/16 [History] Glimepiride [Amaryl] 4 mg PO DAILY PRN 04/20/16 [History] Lisinopril [Zestril] 20 mg PO DAILY 04/20/16 [History] Aspirin 81 mg PO DAILY 12/29/16 [History] Docusate Sodium [Dok] 100 mg PO HS 12/29/16 [History] Escitalopram [Lexapro] 20 mg PO 1200 12/29/16 [History] Levothyroxine [Synthroid] 50 mcg PO 0630 12/29/16 [History] Multivit-Min/FA/Lycopen/Lutein [Centrum Silver Tablet] 1 tab PO HS 12/29/16 [ History] Pravastatin Sodium [Pravachol] 40 mg PO 1200 12/29/16 [History] Vitamin B Complex Vit C No.4 [Super B Complex] 1 tab PO HS 12/29/16 [History] Metformin HCl [Glucophage] 1,000 mg PO BID #90 12/30/16 [Rx] Acetaminophen [Pain Relief] 1,000 mg PO DAILY 02/21/17 [History] Meloxicam [Mobic] 7.5 mg PO 1200 05/31/17 [History] Oxybutynin [Ditropan] 5 mg PO DAILY 09/28/17 [History] Sodium Bicarbonate 1,300 mg PO AD #24 tablet 09/28/17 [Rx] 3 Allergy/AdvReac Type Severity Reaction Status Date / Time Penicillins Allergy Hives Verified 10/28/17 08:46 Review of Systems - Constitutional no chills, no fever(s) - EENT Nose, mouth and throat: no dizziness - Cardiovascular no chest pain - Respiratory no cough Exam Initial Vital Signs Temp Pulse Resp BP Pulse Ox 98.1 F 66 18 234/94 98 10/28/17 07:54 10/28/17 07:54 10/28/17 07:54 10/28/17 07:54 10/28/17 07:54 General/Neuological: alert and oriented x 3 Eyes: normal pupils, non-icteric Neck: no lymphadenopathy noted, supple to touch ABD: soft, nontender, no masses palpated, good bowel sounds Back: no pain on percussion bilaterally Skin: no rashes noted Musculoskeletal: normal gait, FROMx4 Urology Results - Labs 10/28/17 08:35 10/28/17 08:35 Abnormal lab results RBC 4.04 M/mcL (4.19-5.50) L 10/28/17 08:35 Hct 36.7 % (37.5-50.1) L 10/28/17 08:35 MCHC 35.7 g/dL (31.6-35.5) H 10/28/17 08:35 Sodium 135 mEq/L (136-145) L 10/28/17 08:35 Carbon Dioxide 21 mEq/L (23-29) L 10/28/17 08:35 Creatinine 1.43 mg/dL (0.70-1.30) H 10/28/17 08:35 Est GFR ( Amer) 58 (> 60) L 10/28/17 08:35 Est GFR (Non-Af Amer) 48 (> 60) L 10/28/17 08:35 Glucose 181 mg/dL (70-105) H 10/28/17 08:35 Lactic Acid 2.9 mmol/L (0.5-2.2) H 10/28/17 08:35 Diabetes panel 10/28/17 Range/Units 08:35 Sodium 135 L (136-145) mEq/L Potassium 4.6 (3.5-5.1) mEq/L Chloride 103 (98-107) mEq/L Carbon Dioxide 21 L (23-29) mEq/L BUN 22 (8-23) mg/dL Creatinine 1.43 H (0.70-1.30) mg/dL Glucose 181 H (70-105) mg/dL Calcium 9.8 (8.6-10.3) mg/dL AST 13 (13-39) Units/L ALT 9 (7-52) Units/L Alkaline Phosphatase 82 (34-104) Units/L Albumin 4.4 (3.5-5.7) g/dL Calcium panel 10/28/17 Range/Units 08:35 Calcium 9.8 (8.6-10.3) mg/dL Albumin 4.4 (3.5-5.7) g/dL Pituitary panel 10/28/17 Range/Units 08:35 Sodium 135 L (136-145) mEq/L Potassium 4.6 (3.5-5.1) mEq/L Chloride 103 (98-107) mEq/L Carbon Dioxide 21 L (23-29) mEq/L BUN 22 (8-23) mg/dL Creatinine 1.43 H (0.70-1.30) mg/dL Glucose 181 H (70-105) mg/dL Calcium 9.8 (8.6-10.3) mg/dL Adrenal panel 10/28/17 Range/Units 08:35 Sodium 135 L (136-145) mEq/L Potassium 4.6 (3.5-5.1) mEq/L Chloride 103 (98-107) mEq/L Carbon Dioxide 21 L (23-29) mEq/L BUN 22 (8-23) mg/dL Creatinine 1.43 H (0.70-1.30) mg/dL Glucose 181 H (70-105) mg/dL Calcium 9.8 (8.6-10.3) mg/dL Total Bilirubin 0.3 (0.3-1.0) mg/dL AST 13 (13-39) Units/L ALT 9 (7-52) Units/L Alkaline Phosphatase 82 (34-104) Units/L Albumin 4.4 (3.5-5.7) g/dL All other labs normal. - Imaging CT scan - abdomen: image reviewed CT scan - pelvis: image reviewed Consult Discharge Plan - Plan Referrals: Rich Spivey MD [Primary Care Provider] -
--- NOTE | 2017-10-28 10:01 | Emergency Department Note ---
Disposition Clinical Impression: Flank pain, Elevated blood pressure reading Chronic kidney disease Qualifiers: Chronic kidney disease stage: unspecified stage Qualified Code(s): N18.9 - Chronic kidney disease, unspecified Urolithiasis Qualifiers: Urinary calculus location: other lower urinary tract location Qualified Code(s) : N21.8 - Other lower urinary tract calculus Disposition: Admitted As Inpatient Condition: Fair Referrals: Rich Spivey MD [Primary Care Provider] - Forms: ED Satisfaction Letter, Work/School Release General Adult HPI - General Chief complaint: ED Abdominal Pain Stated complaint: flank pain Time Seen by Provider: 10/28/17 08:19 Source: patient Mode of arrival: ambulatory Limitations: no limitations - History of Present Illness Pain Scale: 9 - Related Data Home Medications Medication Instructions Recorded Confirmed Glucosamine/D3/Boswellia Cris 2 tab PO HS 03/09/16 10/28/17 [Osteo Bi-Flex Tablet] Lansoprazole [Prevacid] 60 mg PO HS 03/09/16 10/28/17 Polyethylene Glycol 3350 [MiraLAX] 17 gm PO DAILY 03/09/16 10/28/17 Ubidecarenone [Co Q-10] 200 mg PO 1200 03/09/16 10/28/17 Gabapentin [Neurontin] 300 mg PO TID 04/20/16 10/28/17 Glimepiride [Amaryl] 4 mg PO DAILY PRN 04/20/16 10/28/17 Lisinopril [Zestril] 20 mg PO DAILY 04/20/16 10/28/17 Aspirin 81 mg PO DAILY 12/29/16 10/28/17 Docusate Sodium [Dok] 100 mg PO HS 12/29/16 10/28/17 Escitalopram [Lexapro] 20 mg PO 1200 12/29/16 10/28/17 Levothyroxine [Synthroid] 50 mcg PO 0630 12/29/16 10/28/17 Multivit-Min/FA/Lycopen/Lutein 1 tab PO HS 12/29/16 10/28/17 [Centrum Silver Tablet] Pravastatin Sodium [Pravachol] 40 mg PO 1200 12/29/16 10/28/17 Vitamin B Complex Vit C No.4 1 tab PO HS 12/29/16 10/28/17 [Super B Complex] Acetaminophen [Pain Relief] 1,000 mg PO DAILY 02/21/17 10/28/17 Meloxicam [Mobic] 7.5 mg PO 1200 05/31/17 10/28/17 Oxybutynin [Ditropan] 5 mg PO DAILY 09/28/17 10/28/17 Previous Rx's Medication Instructions Recorded Metformin HCl [Glucophage] 1,000 mg PO BID #90 12/30/16 Sodium Bicarbonate 1,300 mg PO AD #24 tablet 09/28/17 Allergies Allergy/AdvReac Type Severity Reaction Status Date / Time Penicillins Allergy Hives Verified 10/28/17 08:46 Constitutional: Denies: fever Cardiovascular: Denies: chest pain Respiratory: Denies: cough Gastrointestinal: Reports: vomiting. Denies: abdominal pain, nausea Past Medical History - Past Medical History Medical history: Reports: cancer, coronary artery disease, diabetes, GERD, hyperlipidemia, hypertension, kidney stones, thyroid disease Surgical history: Reports: cancer surgery, cataract, orthopedic, other, other Psychiatric history: Reports: depression - Social History Smoking Status: Never smoker Smokeless Tobacco Status: No Alcohol use: Reports: none Drug use: Reports: none Physical Exam - General Limitations: no limitations General appearance: alert, in no apparent distress Course Vital Signs Temperature 98.1 F 10/28/17 07:54 Pulse Rate 66 10/28/17 07:54 Respiratory Rate 18 10/28/17 07:54 Blood Pressure 234/94 10/28/17 07:54 O2 Sat by Pulse Oximetry 98 10/28/17 07:54 Temperature 98.1 F 10/28/17 07:54 Pulse Rate 90 10/28/17 09:47 Respiratory Rate 20 10/28/17 09:47 Blood Pressure 181/81 10/28/17 09:47 O2 Sat by Pulse Oximetry 93 10/28/17 09:47 Oxygen Delivery Oxygen Delivery Room Air Medical Decision Making - Lab Data Result diagrams: 10/28/17 08:35 10/28/17 08:35 Lab Results 10/28/17 10/28/17 10/28/17 Range/Units 08:35 08:35 08:35 WBC 10.5 (4.3-11.1) K/mcL RBC 4.04 L (4.19-5.50) M/mcL Hgb 13.1 (12.9-16.9) g/dL Hct 36.7 L (37.5-50.1) % MCV 90.8 (83.0-100.0) fL MCH 32.4 (28.0-33.3) pg MCHC 35.7 H (31.6-35.5) g/dL RDW 12.2 (11.5-14.5) % Plt Count 202 (140-400) K/mcL MPV 9.6 (9.4-12.4) fL Immature Gran % 0.4 (0-4) % Seg Neutrophils % 64.8 % Lymphocytes % 23.9 % Monocytes % 9.0 % Eosinophils % 1.7 % Basophils % 0.2 % Neutrophils # 6.8 (1.6-8.9) K/mcL Lymphocytes # 2.5 (0.6-4.6) K/mcL Monocytes # 0.9 (0.0-1.3) K/mcL Eosinophils # 0.2 (0.0-0.6) K/mcL Basophils # 0.0 (0.0-0.2) K/mcL Sodium 135 L (136-145) mEq/L Potassium 4.6 (3.5-5.1) mEq/L Chloride 103 (98-107) mEq/L Carbon Dioxide 21 L (23-29) mEq/L BUN 22 (8-23) mg/dL Creatinine 1.43 H (0.70-1.30) mg/dL Est GFR ( Amer) 58 L (> 60) Est GFR (Non-Af Amer) 48 L (> 60) BUN/Creatinine Ratio 15 (6-26) Glucose 181 H (70-105) mg/dL Calculated Osmolality 288 (280-300) Lactic Acid 2.9 H (0.5-2.2) mmol/L Calcium 9.8 (8.6-10.3) mg/dL Total Bilirubin 0.3 (0.3-1.0) mg/dL Direct Bilirubin 0.1 (0.0-0.2) mg/dL Indirect Bilirubin 0.2 (0.0-1.2) mg/dL AST 13 (13-39) Units/L ALT 9 (7-52) Units/L Alkaline Phosphatase 82 (34-104) Units/L Serum Total Protein 6.8 (6.4-8.9) g/dL Albumin 4.4 (3.5-5.7) g/dL Globulin 2.4 (2.4-3.5) g/dL Albumin/Globulin Ratio 1.8 (1.1-2.2) Lipase 46 (11-82) Units/L Attestation Statement - Attestation Attestation: I examined this patient and my medical decision-making was reviewed with the Resident Physician. I agree with the documented findings, disposition and treatment plan as described except to the extent set forth below. 77 year old male prsents to the ED with complaits of left sided flank pain with kidney stone history. Pastinet follows with Dr. Menard and has a solitary left kidney with an elevated LAVERNE of 1.45 crn and lactic acid of 2.9 in addition to being hypertensive with systolic > 200. WE will admit to medicine and urology has been consulted for OR.
[2017-10-28] MEDS ORDERED: Isovue-300 50 ML VIAL IVP ONE (10:17)
[2017-10-28 10:20] LABS: Troponin I < 0.03 ng/mL (< 0.04)
[2017-10-28] MEDS ORDERED: *HR* Morphine 2 MG/ML SYRINGE IVP PRN (10:38)
[2017-10-28] MEDS ORDERED: *HR* OxyCODONE Immed Rel 5 MG TABLET PO PRN (10:38)
--- NOTE | 2017-10-28 10:45 | Anesthesia Evaluation Post Op ---
Date of Encounter: 10/28/17 Time of Encounter: 11:30 - Vital Signs Vital Signs: Selected Entries 10/28/17 11:22 10/28/17 11:32 Temperature 97.9 F Pulse Rate 89 Respiratory Rate 16 Blood Pressure 166/87 O2 Sat by Pulse Oximetry 100 - Lungs Lungs: Clear Ascult./Percussion - Airway Airway: Non-obstructed - Cardiovascular Regular Rate - Mental Status Mental Status: Alert & Oriented, Answers Appropriately - Nausea Vomiting Nausea Vomiting: Not Present - Hydration Hydration: Ice chips - Discharge PostOp Status: Transfer Patient to floor
--- NOTE | 2017-10-28 10:46 | Operative Note ---
Date of procedure: 10/28/17 Pre-op diagnosis: left ureteral stone with solitary kidney Post-op diagnosis: same Procedure: Cystoscopy and left 6 x 28 cm ureteral stent placement Anesthesia: BRIONNAA Surgeon: Terence Menard Was there an assistant merchandiser present: No Estimated blood loss (cc): 0 Specimen: none Condition: stable Disposition: PACU Procedure in Detail: Patient was prepped and draped in normal sterile fashion. Timeout procedure performed. I then inserted the cystoscope into the patient's bladder. I was able to cannulate the left ureteral orifice using a open ended ureteral catheter. I then placed a Glidewire through this into the left kidney passing the proximal ureteral stone. At this point I then placed a 6 x 28 cm stent with good curl seen in the left kidney and in the bladder. 18-Cymraes Coude catheter was then placed into the bladder to allow maximal drainage. Patient taken to PACU in stable condition. We will plan on keeping catheter in overnight.
[2017-10-28] MEDS ORDERED: Ondansetron 4 MG/2 ML VIAL ONE (11:01)
[2017-10-28] MEDS ORDERED: *HR* FentaNYL (PF) 100 MCG/2 ML VIAL ONE (11:01)
[2017-10-28] MEDS ORDERED: Lidocaine -MPF 2% 2 ML VIAL ONE (11:01)
[2017-10-28] MEDS ORDERED: Dexamethasone 4 MG/ML VIAL ONE (11:01)
[2017-10-28] MEDS ORDERED: *HR* Propofol 200 MG/20 ML VIAL IVP ONE (11:01)
[2017-10-28] MEDS ORDERED: Hyoscyamine SL 0.125 MG TAB.SUBL SL PRN (12:32)
[2017-10-28] MEDS ORDERED: Ondansetron 4 MG/2 ML VIAL IVP PRN (12:32)
[2017-10-28] MEDS ORDERED: *HR* Glimepiride 4 MG TABLET PO PRN (12:32)
[2017-10-28] MEDS ORDERED: *HR* HYDROcodone/Acet 5/325 mg TABLET PO PRN (12:32)
[2017-10-28] MEDS ORDERED: Naloxone 0.4 MG/ML INJ IVP PRN (12:32)
[2017-10-28] MEDS: Gabapentin 300 MG CAPSULE PO SCH ×2 (14:30→21:36)
[2017-10-28] MEDS: 0.9 % Sodium Chloride 1,000 ML IVC SCH (14:30)
--- NOTE | 2017-10-28 17:24 | Internal Med History&Physical ---
Date of Encounter: 10/28/17 Time of Encounter: 17:19 Internal Medicine - H&P: HPI Admitted From: Home Plans for Post Hospital Care: Home History of present illness: Mr. William is a 77 year old male with past medical history of bladder CA, recurrent renal calculi, R nephrectomy due to cancer. Pt presents with acute left flank pain. Pt is well known to urology service. He reports that he has up coming bladder ca resection at [facility]. In ED WBC 10.5, hgb 13.1, Na 135, BUN 22, Cr 1.43. CT abdomen and pelvis CT/CT abd pelvis wo no iv no oral IMPRESSION: 1. The left kidney demonstrates a 7 mm obstructing UPJ/proximal ureteral calculus with numerous more proximal calculi in the UPJ. This results in moderate hydronephrosis with perinephric stranding. At the left UVJ there is a 3 mm calculus. The intervening ureter between the proximal distal calculi is decompressed. Multiple non-obstructing left nephroliths. 2. 1.6 cm pancreatic tail cystic lesion which appears nonaggressive though has increased in size over numerous prior exams. Further evaluation with dedicated MRI with/without contrast is recommended. Past Med Surg Social Fam HX - Past Medical History Medical history: cancer, coronary artery disease, diabetes, GERD, hyperlipidemia , hypertension, kidney stones, thyroid disease Additional medical history: Bladder Cancer Psychiatric history: depression - Past Surgical History Surgical History: cancer surgery, cataract, orthopedic, other, other Additional surgical history: Right nephrectomy, heart cath (no STENTS), bladder surgery - Social History Smoking Status: Never smoker Smokeless Tobacco Status: No Alcohol use: none Drug use: none - Family History Father Adopted: [place]: Lakhwinder William Age: 79 Family Member Ethnicity: Non- Living Status: Age at : 79 Cause of : Prostate CA Hx Family Cardiac Disorders: No Hx Family Respiratory Disorders: No Hx Family Cancer: Yes (Prostate) Hx Family GI Disorders: No Hx Family Genitourinary Disorders: No Hx Family Endocrine Disorder: No Hx Family Musculoskeletal Disorders: No Hx Family Neuromuscular Disorders: No Hx Family Neurologic Disorders: No Hx Family HEENT Disorders: No Hx Family Autoimmune Disorders: No Hx Family Reproductive Disorders: No Hx Family Psychosocial Disorders: No Hx Family Medical Disorders: No Mother Living Status: Hx Family Cardiac Disorders: Yes (Hypertension) Hx Family Cancer: Yes (Colon) Hx Family Endocrine Disorder: Yes (diabetes) Internal Medicine - H&P: Meds Glucosamine/D3/Boswellia Cris [Osteo Bi-Flex Tablet] 2 tab PO HS 03/09/16 [ History] Lansoprazole [Prevacid] 60 mg PO HS 03/09/16 [History] Polyethylene Glycol 3350 [MiraLAX] 17 gm PO DAILY 03/09/16 [History] Ubidecarenone [Co Q-10] 200 mg PO 1200 03/09/16 [History] Gabapentin [Neurontin] 300 mg PO TID 04/20/16 [History] Glimepiride [Amaryl] 4 mg PO DAILY PRN 04/20/16 [History] Lisinopril [Zestril] 20 mg PO DAILY 04/20/16 [History] Aspirin 81 mg PO DAILY 12/29/16 [History] Docusate Sodium [Dok] 100 mg PO HS 12/29/16 [History] Escitalopram [Lexapro] 20 mg PO 1200 12/29/16 [History] Levothyroxine [Synthroid] 50 mcg PO 0630 12/29/16 [History] Multivit-Min/FA/Lycopen/Lutein [Centrum Silver Tablet] 1 tab PO HS 12/29/16 [ History] Pravastatin Sodium [Pravachol] 40 mg PO 1200 12/29/16 [History] Vitamin B Complex Vit C No.4 [Super B Complex] 1 tab PO HS 12/29/16 [History] Metformin HCl [Glucophage] 1,000 mg PO BID #90 12/30/16 [Rx] Acetaminophen [Pain Relief] 1,000 mg PO DAILY 02/21/17 [History] Meloxicam [Mobic] 7.5 mg PO 1200 05/31/17 [History] Oxybutynin [Ditropan] 5 mg PO DAILY 09/28/17 [History] Sodium Bicarbonate 1,300 mg PO AD #24 tablet 09/28/17 [Rx] 3 Allergy/AdvReac Type Severity Reaction Status Date / Time Penicillins Allergy Hives Verified 10/28/17 08:46 All Systems PM: A 10-system review of systems was performed and is negative for pertinent findings except as documented above in the HPI. - Constitutional Constitutional: chills, no fever(s), no night sweats - EENT Eyes: no change in vision, no discharge, no pain, no photophobia Ears: no ear discharge, no ear pain, no tinnitus Nose, mouth and throat: no dysphagia, no nasal discharge, no neck pain, no sore throat - Cardiovascular Cardiovascular ROS IM: no chest pain, no diaphoresis, no dyspnea, no lightheadedness, no palpitations, no syncope - Respiratory Respiratory: no cough, no dyspnea, no wheezing, no excessive phlegm production - Gastrointestinal Gastrointestinal: no abdominal pain, no diarrhea, no hematemesis, no hematochezia, no melena, no nausea, no vomiting - Musculoskeletal Musculoskeletal ROS IM: no numbness, no tingling - Integumentary Integumentary IM: no rash, no unusual bruising - Neurological Neurological ROS: no confusion, no convulsions, no focal weakness, no numbness, no tingling, no tremor(s) - Hematologic/Lymphatic Hematologic/Lymphatic: no easy bruising - Constitutional Vitals: Temp Pulse Resp BP Pulse Ox 97.9 F 89 16 166/87 100 10/28/17 11:22 10/28/17 11:32 10/28/17 11:32 10/28/17 11:32 10/28/17 11:32 General appearance: Present: A&O X 3, no acute distress Exam: Physical Exam - General Limitations: no limitations General appearance: alert, in no apparent distress - Head Head exam: atraumatic, normocephalic, normal inspection - Eye Eye exam: Present: normal appearance, PERRL, EOMI - ENT ENT exam: normal exam, mucous membranes moist - Neck Neck exam: Present: normal inspection - Chest Chest inspection: Present: normal inspection, symmetric chest wall rise - Respiratory Respiratory exam: Present: normal lung sounds bilaterally, other (Shallow breath ). Absent: respiratory distress - Cardiovascular Cardiovascular exam: Present: regular rate, normal rhythm. Absent: systolic murmur - Abdominal Exam Abdominal exam: Present: soft, Non-Tender - Extremities Exam Extremities exam: Present: normal inspection. Absent: pedal edema - Expanded Lower Extremity Exam Neurovascular/Tendon exam: Present: normal capillary refill - Back Exam Back exam: Present: normal inspection - Neurological Exam Neurological exam: Present: alert, oriented X3, CN II-XII intact - Skin Skin exam: Present: warm, dry, intact, normal color - Head Head exam: Present: atraumatic, normocephalic - Eye Eye exam: Present: PERRL, conjuntiva pink, sclera anicteric Pupils: Present: PERRL - Neck Neck exam general surgery: Present: supple, trachea midline. Absent: lymphadenopathy - Respiratory Respiratory exam: Present: CTAB. Absent: accessory muscle use, rales, rhonchi, wheezes - Cardiovascular Cardiovascular exam: Present: RRR, +S1, +S2. Absent: diastolic murmur, gallop, rubs, systolic murmur - GI/Abdominal GI/Abdominal exam: Present: normal bowel sounds, soft, no peritoneal signs. Absent: distended, tenderness - Extremities Exam Extremities exam: Present: warm, radial pulses palpable and symmetrical. Absent : calf tenderness, cyanotic, pedal edema - Neurological Exam Neurological exam: Present: CN II-XII intact, oriented X3, no focal deficits. Absent: pronater drift, facial droop, speech deficit - Skin Skin exam: Present: dry, intact Internal Med - H&P Results - Labs CBC & Chem 7: 10/28/17 08:35 10/28/17 08:35 - Impressions ITS Impressions Fluoroscopy 10/28/17 10:25 IMPRESSION: Placement of left ureteral stent with calculus noted proximally at the expected position of the UPJ. Images provided for the purpose of guidance of procedure without a radiologist present. Please see performing physician notes for full detail. D/ / 10/28/2017 12:26:29 Ramirez Bautista MD / colleen Interpreting Provider: Ramirez Bautista MD X-Ray 10/28/17 10:25 IMPRESSION: Placement of left ureteral stent with calculus noted proximally at the expected position of the UPJ. Images provided for the purpose of guidance of procedure without a radiologist present. Please see performing physician notes for full detail. D/ / 10/28/2017 12:26:29 Ramirez Bautista MD / colleen Interpreting Provider: Ramirez Bautista MD - Assessment and plan (1) Ureteral stone with hydronephrosis Current Visit: No Status: Resolved Assessment and plan: Pt is s/p cystoscopy and left ureteral stent placement. Will monitor renal function dialy. (2) Solitary left kidney Current Visit: Yes Status: Acute Assessment and plan: Secondary to right nephroureterectomy from invasive urothelial cancer. (3) Hypertensive urgency Current Visit: Yes Status: Acute (4) Bladder cancer Current Visit: No Status: Chronic Assessment and plan: Pt states he has surgery scheduled at [facility] in a few weeks. Qualifiers: Bladder location: unspecified site Qualified Code(s): C67.9 - Malignant neoplasm of bladder, unspecified - Time Spent With Patient Total time spent is greater than 50% in coordination of care (as documented) at patient's floor/unit and/or counseling patient: less than 15 minutes
[2017-10-28] MEDS ORDERED: Insulin LISPRO 300 UNITS/3 ML VIAL SQ ONE (18:50)
[2017-10-28] MEDS: Insulin LISPRO 300 UNITS/3 ML VIAL SQ SCH (18:56)
[2017-10-28] MEDS ORDERED: Insulin LISPRO 300 UNITS/3 ML VIAL SQ SCH (21:00)
[2017-10-28] MEDS: *HR* OxyCODONE Immed Rel 5 MG TABLET PO PRN (21:42)
[2017-10-29] MEDS: 0.9 % Sodium Chloride 1,000 ML IVC SCH (03:25)
[2017-10-29] MEDS: *HR* OxyCODONE Immed Rel 5 MG TABLET PO PRN ×2 (05:55→12:11)
[2017-10-29 06:59] LABS: Basophils % 0.1 %; Hematocrit 35.1 % (37.5-50.1); Hemoglobin 11.8 g/dL (12.9-16.9); Immature Granulocytes % 0.5 % (0-4); Lymphocytes # 2.1 K/mcL (0.6-4.6); Lymphocytes % 12.7 %; Mean Corpuscular HGB Conc 33.6 g/dL (31.6-35.5); Mean Corpuscular Hemoglobin 31.2 pg (28.0-33.3); Mean Corpuscular Volume 92.9 fL (83.0-100.0); Mean Platelet Volume 9.6 fL (9.4-12.4); Monocytes # 1.3 K/mcL (0.0-1.3); Monocytes % 8.1 %; Neutrophils # 12.8 K/mcL (1.6-8.9); Platelet Count 210 K/mcL (140-400); Red Blood Count 3.78 M/mcL (4.19-5.50); Red Cell Distribution Width 12.5 % (11.5-14.5); Segmented Neutrophils % 78.6 %
[2017-10-29 07:48] LABS: BUN/Creatinine Ratio 17 (6-26); Blood Urea Nitrogen 23 mg/dL (8-23); Calcium 8.7 mg/dL (8.6-10.3); Carbon Dioxide 22 mEq/L (23-29); Chloride 108 mEq/L (98-107); Glucose 149 mg/dL (70-105); Osmolality,Calculated 288 (280-300); Potassium 5.6 mEq/L (3.5-5.1); Sodium 136 mEq/L (136-145); eGFR For Non-African Americans 51 (> 60)
[2017-10-29] MEDS: Insulin LISPRO 300 UNITS/3 ML VIAL SQ SCH ×2 (08:24→12:00)
[2017-10-29] MEDS: Gabapentin 300 MG CAPSULE PO SCH ×2 (08:25→15:40)
[2017-10-29] MEDS ORDERED: Aspirin 81 MG TAB.CHEW PO SCH (09:00)
[2017-10-29] MEDS ORDERED: Lisinopril 20 MG TABLET PO SCH (09:00)
--- NOTE | 2017-10-29 09:32 | Urology Progress Note ---
Date of Encounter: 10/29/17 Time of Encounter: 09:31 - Assessment and Plan (1) Solitary left kidney Current Visit: Yes Status: Acute (2) Hypertensive urgency Current Visit: Yes Status: Acute (3) Ureteral stone with hydronephrosis Current Visit: No Status: Resolved Assessment and plan: Status post left ureteral stent. Patient's family is to get a hold of the patient's surgeon regarding next step. Okay to discharge from urology standpoint. We will continue to follow while in hospital. Progress Note Narrative: Patient seen this morning. Postoperative day 1 from cystoscopy and left ureteral stent placement. Patient feels much better. Objective Initial Vital Signs Temp Pulse Resp BP Pulse Ox 98.1 F 66 18 234/94 98 10/28/17 07:54 10/28/17 07:54 10/28/17 07:54 10/28/17 07:54 10/28/17 07:54 - General physical appearance Present: well developed, well nourished - Abdomen Present: soft. Absent: tender - Labs 10/29/17 06:45 10/29/17 06:45 Diabetes panel 10/29/17 Range/Units 06:45 Sodium 136 (136-145) mEq/L Potassium 5.6 H (3.5-5.1) mEq/L Chloride 108 H (98-107) mEq/L Carbon Dioxide 22 L (23-29) mEq/L BUN 23 (8-23) mg/dL Creatinine 1.35 H (0.70-1.30) mg/dL Glucose 149 H (70-105) mg/dL Calcium 8.7 (8.6-10.3) mg/dL Calcium panel 10/29/17 Range/Units 06:45 Calcium 8.7 (8.6-10.3) mg/dL Pituitary panel 10/29/17 Range/Units 06:45 Sodium 136 (136-145) mEq/L Potassium 5.6 H (3.5-5.1) mEq/L Chloride 108 H (98-107) mEq/L Carbon Dioxide 22 L (23-29) mEq/L BUN 23 (8-23) mg/dL Creatinine 1.35 H (0.70-1.30) mg/dL Glucose 149 H (70-105) mg/dL Calcium 8.7 (8.6-10.3) mg/dL Adrenal panel 10/29/17 Range/Units 06:45 Sodium 136 (136-145) mEq/L Potassium 5.6 H (3.5-5.1) mEq/L Chloride 108 H (98-107) mEq/L Carbon Dioxide 22 L (23-29) mEq/L BUN 23 (8-23) mg/dL Creatinine 1.35 H (0.70-1.30) mg/dL Glucose 149 H (70-105) mg/dL Calcium 8.7 (8.6-10.3) mg/dL Consult Discharge Plan - Plan Referrals: Rich Spivey MD [Primary Care Provider] -
[2017-10-29 10:48] VITALS: BP 137/72
--- NOTE | 2017-10-29 14:03 | Discharge Summary ---
- NOTES TO OUTPATIENT PROVIDER Notes to Outpatient Provider: PCP in 5 to 7 days Orders not resulted at time of discharge: follow up with urologist out pt as scheduled Date of Encounter: 10/29/17 Time of Encounter: 13:54 - Discharge Diagnosis (1) Ureteral stone with hydronephrosis Priority: Primary Status: Resolved Assessment and Plan: Pt is s/p cystoscopy and left ureteral stent placement. Pt doing well post procedure. Pain controlled. Out pt f/u with urologist. 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 Follow up out pt at [facility] (3) Hypertensive urgency Priority: Primary Status: Acute Assessment and Plan: better controlled. (4) Bladder cancer Priority: Secondary Status: Chronic Assessment and Plan: Pt states he has surgery scheduled at [facility] in a few weeks. Qualifiers: Bladder location: unspecified site Qualified Code(s): C67.9 - Malignant neoplasm of bladder, unspecified Hospital course: Mr. William is a 77 year old male with past medical history of bladder CA, recurrent renal calculi, R nephrectomy due to cancer. Pt presents with acute left flank pain. Pt is well known to urology service. He reports that he has up coming bladder ca resection at [facility]. He is s/p cystoscopy and left ureteral stent placement. In ED WBC 10.5, hgb 13.1, Na 135, BUN 22, Cr 1.43. CT abdomen and pelvis CT/CT abd pelvis wo no iv no oral IMPRESSION: 1. The left kidney demonstrates a 7 mm obstructing UPJ/proximal ureteral calculus with numerous more proximal calculi in the UPJ. This results in moderate hydronephrosis with perinephric stranding. At the left UVJ there is a 3 mm calculus. The intervening ureter between the proximal distal calculi is decompressed. Multiple non-obstructing left nephroliths. 2. 1.6 cm pancreatic tail cystic lesion which appears nonaggressive though has increased in size over numerous prior exams. Further evaluation with dedicated MRI with/without contrast is recommended. Discharge discussed with: patient - Time Spent with Patient Total time spent providing and/or coordinating discharge services: Greater than 30 minutes - Discharge Medications Home Medications: Glucosamine/D3/Boswellia Cris [Osteo Bi-Flex Tablet] 2 tab PO HS 03/09/16 [ History] Lansoprazole [Prevacid] 60 mg PO HS 03/09/16 [History] Polyethylene Glycol 3350 [MiraLAX] 17 gm PO DAILY 03/09/16 [History] Ubidecarenone [Co Q-10] 200 mg PO 1200 03/09/16 [History] Gabapentin [Neurontin] 300 mg PO TID 04/20/16 [History] Glimepiride [Amaryl] 4 mg PO DAILY PRN 04/20/16 [History] Lisinopril [Zestril] 20 mg PO DAILY 04/20/16 [History] Aspirin 81 mg PO DAILY 12/29/16 [History] Docusate Sodium [Dok] 100 mg PO HS 12/29/16 [History] Escitalopram [Lexapro] 20 mg PO 1200 12/29/16 [History] Levothyroxine [Synthroid] 50 mcg PO 0630 12/29/16 [History] Multivit-Min/FA/Lycopen/Lutein [Centrum Silver Tablet] 1 tab PO HS 12/29/16 [ History] Pravastatin Sodium [Pravachol] 40 mg PO 1200 12/29/16 [History] Vitamin B Complex Vit C No.4 [Super B Complex] 1 tab PO HS 12/29/16 [History] Metformin HCl [Glucophage] 1,000 mg PO BID #90 12/30/16 [Rx] Acetaminophen [Pain Relief] 1,000 mg PO DAILY 02/21/17 [History] Meloxicam [Mobic] 7.5 mg PO 1200 05/31/17 [History] Oxybutynin [Ditropan] 5 mg PO DAILY 09/28/17 [History] Sodium Bicarbonate 1,300 mg PO AD #24 tablet 09/28/17 [Rx] Allergies/Adverse Reactions: 3 Allergy/AdvReac Type Severity Reaction Status Date / Time Penicillins Allergy Hives Verified 10/28/17 08:46 Date of admission: 10/28/17 10:12 Primary care physician: Rich Spivey MD Consults: 10/28/17 12:47 Consult to Nutrition [CONS] Routine Comment: Consulting Provider: NUTRITION Reason for Dietary Consult: MST Score Discharging clinician: Jillian Vaca Anticipated date of discharge: 10/29/17 - Constitutional Vitals: Temp Pulse Resp BP Pulse Ox 98.2 F 70 16 137/72 92 10/29/17 10:44 10/29/17 10:44 10/29/17 10:44 10/29/17 10:44 10/29/17 10:44 General appearance: Present: A&O X 3, no acute distress Exam: . - Head Head exam: Present: atraumatic, normocephalic - Eye Eye exam: Present: PERRL, conjuntiva pink, sclera anicteric Pupils: Present: PERRL - Neck Neck exam general surgery: Present: supple, trachea midline. Absent: lymphadenopathy - Respiratory Respiratory exam: Present: CTAB. Absent: accessory muscle use, rales, rhonchi, wheezes - Cardiovascular Cardiovascular exam: Present: RRR, +S1, +S2. Absent: diastolic murmur, gallop, rubs, systolic murmur - GI/Abdominal GI/Abdominal exam: Present: normal bowel sounds, soft, no peritoneal signs. Absent: distended, tenderness - Extremities Exam Extremities exam: Present: warm, radial pulses palpable and symmetrical. Absent : calf tenderness, cyanotic, pedal edema - Neurological Exam Neurological exam: Present: CN II-XII intact, oriented X3, no focal deficits. Absent: pronater drift, facial droop, speech deficit - Skin Skin exam: Present: dry, intact - Patient Status Disposition: Home, Self-Care Condition: Fair Overall status at discharge: patient is back to baseline - Discharge Instructions Follow Up With: Rich Spivey MD [Primary Care Provider] - - Diet and Activity Activity: increase activity as tolerated Diet: low salt diet
--- NOTE | 2017-10-29 17:28 | Electrocardiograph Report ---
[place] [id number] Test Date: 2017-10-28 Pat Name: Clint William Department: EXAM2 Room: 3A33 Gender: M [employer]visor [employer]ations: : 1940 Requested By: Pasquale Chandler Order Number: [id number] Reading MD: Sigrid Garcia Measurements Intervals [place] Rate: 70 P: 24 ME: 201 QRS: -41 QRSD: 103 T: 33 QT: 397 QTc: 429 Interpretive Statements Sinus rhythm Left anterior fascicular block Abnormal R-wave progression, early transition Electronically Signed On 10-29-2017 17:26:33 EDT by Sigrid Garcia
[2017-10-30] MEDS ORDERED: *HR* Metformin 500 MG TABLET PO SCH (09:00)
== END 2017-10-29 15:54 | disposition home or self-care (01) | DRG 694 ==
LOC: EMEROOARM 07:50 → 3ANU 07:50
PROVIDERS: ADMIT Internal Medicine; ATTEND Internal Medicine

== ENCOUNTER 2018-06-03 21:04 | Inpatient (IN) ==
[2018-06-04] MEDS ORDERED: Ondansetron ODT 4 MG TAB.RAPDIS SL PRN (03:21)
[2018-06-04] MEDS ORDERED: Naloxone 0.4 MG/ML INJ IVP PRN ×2 (03:21→04:59)
[2018-06-04] MEDS ORDERED: *HR* Dextrose 50 % in Water (Syg) 50 ML SYRINGE IVP PRN (03:26)
[2018-06-04] MEDS ORDERED: Dextrose Gel 15 GM/37.5 ML TUBE PO PRN ×2 (03:26)
[2018-06-04] MEDS ORDERED: D5% in Water 1,000 ML IVC PRN (03:26)
[2018-06-04 04:58] LABS: Basophils % 0.4 %; Eosinophils # 0.2 K/mcL (0.0-0.6); Eosinophils % 1.5 %; Hematocrit 23.8 % (37.5-50.1); Hemoglobin 7.4 g/dL (12.9-16.9); Immature Granulocytes % 0.5 % (0-4); Lymphocytes # 2.8 K/mcL (0.6-4.6); Lymphocytes % 27.1 %; Mean Corpuscular HGB Conc 31.1 g/dL (31.6-35.5); Mean Corpuscular Hemoglobin 27.6 pg (28.0-33.3); Mean Corpuscular Volume 88.8 fL (83.0-100.0); Mean Platelet Volume 8.3 fL (9.4-12.4); Monocytes # 0.9 K/mcL (0.0-1.3); Monocytes % 8.9 %; Neutrophils # 6.4 K/mcL (1.6-8.9); Platelet Count 316 K/mcL (140-400); Red Blood Count 2.68 M/mcL (4.19-5.50); Red Cell Distribution Width 12.7 % (11.5-14.5); Segmented Neutrophils % 61.6 %
[2018-06-04 05:11] LABS: INR 1.4; Prothrombin Time 15.2 Seconds (9.4-12.1)
--- NOTE | 2018-06-04 05:12 | Internal Med History&Physical ---
<Lucia Mead - Last Filed: 06/04/18 06:04> Date of Encounter: 06/04/18 Time of Encounter: 03:00 Internal Medicine - H&P: HPI Chief complaint: sepsis Admitted From: Hospital to Hospital Transfer History of present illness: Mr. William is a 77 year old male with history of metastatic bladder cancer, diabetes, CAD, HTN, HLD, HE, CKD, hypothyroid, GERD, depression. Surgical history of right nephrectomy, resection of bladder/prostate/penis, and urostomy. Patients states that he fell 3 weeks ago. They went to [place] ER and patient was transferred to [facility] where he was admitted for 1 week. PT was recommended and patient went to [place] rehab. Patient was scheduled to have a CT abd/pelvis to evaluate for new bladder mets but labs showed elevated Cr. Patient was subsequently admitted to [place] for sepsis, UTI, LAVERNE, and anemia. Urine culture grew VRE and patient was started on linezolid. Patient was improving until today. He was doing much better and he was able to walk again due to PT. However, today, his legs felt weak again and he couldnt walk. And he had a mild fever with leukocytosis. Patient was transferred to [facility]. Patient denies generalized weakness and states its just his legs that are weak. He's had same leg weakness before and states this is normal for him. also reports confusion the past 2 days. For example, he woke up and told her to move because they were bringing in gravel. And he told the nurse he didnt eat all day when he ate all his meals. Patient admits burning chest pain due to GERD/gastritis. Admits nausea, last episode of emesis 2 days ago. Admits fatigue, unchanged from baseline. Denies shortness of breath, cough, urinary changes, bowel changes, abdominal pain, numbness/tingling. Past Med Surg Social Fam HX - Past Medical History Medical history: cancer, coronary artery disease, diabetes, GERD, hyperlipidemia, hypertension, kidney stones, renal disease, thyroid disease Additional medical history: Bladder Cancer Psychiatric history: anxiety, depression - Past Surgical History Surgical History: cancer surgery, cataract, orthopedic, other, other Additional surgical history: Right kidney removal. bladder removal. lymph node removal. bilateral shoulder repair - Social History Smoking Status: Never smoker Smokeless Tobacco Status: No Alcohol use: none Drug use: none - Family History Father Adopted: No Family Member Ethnicity: Non- Living Status: Hx Family Cardiac Disorders: No Hx Family Respiratory Disorders: No Hx Family Cancer: Yes (prostate ca met.) Hx Family GI Disorders: No Hx Family Endocrine Disorder: No Hx Family Neuromuscular Disorders: No Hx Family Neurologic Disorders: No Hx Family HEENT Disorders: No Hx Family Autoimmune Disorders: No Mother Living Status: Hx Family Cardiac Disorders: Yes Hx Family Cancer: Yes Hx Family Endocrine Disorder: Yes (diabetes) Internal Medicine - H&P: Meds Lansoprazole [Prevacid] 30 mg PO QPM 03/09/16 [History] Polyethylene Glycol 3350 [MiraLAX] 17 gm PO DAILY 03/09/16 [History] Ubidecarenone [Co Q-10] 200 mg PO QAM 03/09/16 [History] Gabapentin [Neurontin] 300 mg PO TID 04/20/16 [History] Glimepiride [Amaryl] 4 mg PO QAM PRN 04/20/16 [History] Docusate Sodium [Dok] 100 mg PO HS 12/29/16 [History] Levothyroxine [Synthroid] 50 mcg PO QAM 12/29/16 [History] Pravastatin Sodium [Pravachol] 40 mg PO DAILY 12/29/16 [History] Acetaminophen [Pain Relief] 650 mg PO Q6H PRN 02/21/17 [History] Patiromer Calcium Sorbitex [Veltassa] 8.4 gm PO DAILY 04/12/18 [History] Escitalopram [Lexapro] 10 mg PO BID 05/14/18 [History] Fluticasone Propionate Nasal [Flonase] 2 spr NS DAILY PRN 05/14/18 [History] Gluc/Michael-MSM#1/C/Sergio/Carmelo/Bor [Osteo Bi-Flex Caplet] 2 each PO QPM 05/14/18 [History] Magnesium Oxide [Magnesium] 400 mg PO DAILY 05/27/18 [History] Allergy/AdvReac Type Severity Reaction Status Date / Time Penicillins Allergy Numbness Verified 05/27/18 13:06 All Systems PM: A 10-system review of systems was performed and is negative for pertinent findings except as documented above in the HPI. - Constitutional Constitutional: fatigue, fever(s), weakness, no anorexia - EENT Eyes: no change in vision Nose, mouth and throat: no dysphagia - Cardiovascular Cardiovascular ROS IM: chest pain (burning from GERD) - Respiratory Respiratory: no dyspnea - Gastrointestinal Gastrointestinal: no abdominal pain, no change in bowel habits - Genitourinary Genitourinary ROS male: no hematuria - Musculoskeletal Musculoskeletal ROS IM: no arthralgias - Integumentary Integumentary IM: no rash - Neurological Neurological ROS: no focal weakness - Psychiatric Psychiatric: no hallucinations - Endocrine Endocrine IM: no cold intolerance - Hematologic/Lymphatic Hematologic/Lymphatic: no easy bleeding - Allergic/Immunologic Allergic/Immunologic: no uticaria - Constitutional Vitals: Temp Pulse Resp BP Pulse Ox 97.9 F 88 18 115/68 98 06/04/18 02:45 06/04/18 02:45 06/04/18 02:45 06/04/18 02:45 06/04/18 03:35 General appearance: Present: cooperative, answers questions appropriately Exam: no acute distress - Head Head exam: Present: atraumatic, normal inspection, normocephalic - Eye Eye exam: Present: EOMI, normal appearance, PERRL, sclera anicteric - ENT ENT exam: Present: mucous membranes moist Additional comments: yellow plaque on tongue - Neck Neck exam general surgery: Present: normal inspection - Respiratory Respiratory exam: Present: decreased breath sounds, CTAB. Absent: accessory muscle use, respiratory distress, tachypnea - Cardiovascular Cardiovascular exam: Present: RRR, +S1, +S2, systolic murmur. Absent: tachycardia - GI/Abdominal GI/Abdominal exam: Present: normal bowel sounds, soft. Absent: tenderness, no peritoneal signs Additional comments: urostomy site is clean and intact. No erythema or purulence. - Extremities Exam Extremities exam: Present: normal inspection, warm. Absent: cyanotic, pedal edema, tenderness - Neurological Exam Neurological exam: Present: alert, CN II-XII intact, oriented X3 - Psychiatric Psychiatric exam: Present: flat affect - Skin Skin exam: Present: dry, intact, pallor, warm Internal Med - H&P Results - Labs CBC & Chem 7: 06/04/18 04:47 06/04/18 04:47 Labs: Short CBC 06/04/18 Range/Units 04:47 WBC 10.3 (4.3-11.1) K/mcL Hgb 7.4 L (12.9-16.9) g/dL Hct 23.8 L (37.5-50.1) % Plt Count 316 (140-400) K/mcL Neutrophils # 6.4 (1.6-8.9) K/mcL - Assessment and Plan (1) Sepsis Current Visit: No Status: Acute Assessment and plan: Fever and leukocytosis Urine culture 05/28/18 grew VRE, sensitive only to linezolid Linezolid started on 06/01 Repeat UA shows leukocyte esterase, WBC, bacteria Blood cultures pending Continue linezolid. Hold SSRI while on linezolid Check CT abd/pelvis Consult Infectious Disease Qualifiers: Sepsis type: sepsis due to unspecified organism Qualified Code(s): A41.9 - Sepsis, unspecified organism (2) Urinary tract infection Current Visit: No Status: Acute Assessment and plan: History of urostomy Urine culture 05/28/18 grew VRE, sensitive only to linezolid Repeat UA shows leukocyte esterase, WBC, bacteria Continue linezolid Qualifiers: Urinary tract infection type: site unspecified Hematuria presence: without hematuria Qualified Code(s): N39.0 - Urinary tract infection, site not specified (3) Acute kidney injury Current Visit: No Status: Acute Assessment and plan: History of nephrectomy Initial Cr 1.77 Improved to 1.33 IVF Encourage PO intake Continue to trend Monitor I&O (4) Anemia Current Visit: No Status: Acute Assessment and plan: Initial Hb 7.0 Baseline 9-10 Asymptomatic, no acute bleed Iron level low at <10 VitB12 level normal Administered PO and IV iron, and vitB12 Improved to Hb 8.0 Continue PO iron Continue to trend Hb Transfuse if Hb <7.0 Qualifiers: Anemia type: iron deficiency Iron deficiency anemia type: unspecified iron deficiency Qualified Code(s): D50.9 - Iron deficiency anemia, unspecified (5) Thrush Current Visit: No Status: Acute Assessment and plan: Diflucan started on 06/01/18 Continue diflucan IV (6) Diabetes Current Visit: No Status: Chronic Assessment and plan: History of diabetes On 05/15/18, A1c of 7.5% SSI Qualifiers: Diabetes mellitus type: type 2 Diabetes mellitus care home insulin use: without truck terminal manager use Diabetes mellitus complication status: without complication Qualified Code(s): E11.9 - Type 2 diabetes mellitus without complications (7) Bladder cancer Current Visit: No Status: Chronic Assessment and plan: History of metastatic bladder cancer History of right nephrectomy On 11/23/17, resection of bladder/prostate/penis with urostomy. At [place] Follows with Dr. Rodney Qualifiers: Bladder location: unspecified site Qualified Code(s): C67.9 - Malignant neoplasm of bladder, unspecified (8) GERD (gastroesophageal reflux disease) Current Visit: No Status: Chronic Assessment and plan: Continue PPI Zofran prn Qualifiers: Esophagitis presence: without esophagitis Qualified Code(s): K21.9 - Gastro-esophageal reflux disease without esophagitis (9) Depression Current Visit: No Status: Chronic Assessment and plan: Hold home SSRI while on linezolid due to risk of serotonin syndrome Qualifiers: Depression Type: unspecified Qualified Code(s): F32.9 - Major depressive disorder, single episode, unspecified (10) HTN (hypertension) Current Visit: No Status: Chronic Assessment and plan: Home meds Qualifiers: Hypertension type: unspecified Qualified Code(s): I10 - Essential (primary) hypertension (11) Hypothyroidism Current Visit: No Status: Chronic Assessment and plan: Home meds Qualifiers: Hypothyroidism type: unspecified Qualified Code(s): E03.9 - Hypothyroidism, unspecified (12) CAD (coronary artery disease) Current Visit: No Status: Chronic Assessment and plan: Home meds Qualifiers: Coronary Disease-Associated Artery/Lesion type: unspecified vessel or lesion type [place] vs. transplanted heart: unspecified whether [place] or transplanted heart Associated angina: without angina Qualified Code(s): I25.10 - Atherosclerotic heart disease of [place] coronary artery without angina pectoris (13) DVT prophylaxis Current Visit: No Status: Acute Assessment and plan: Heparin SQ (14) Hyperkalemia Current Visit: Yes Status: Chronic Assessment and plan: History of hyperkalemia Unknown etiology Glimeperide and gabapentin were discontinued as they can have that side effect Currently, potassium of 4.7 Continue home patiromer - Time Spent With Patient Total time spent is greater than 50% in coordination of care (as documented) at patient's floor/unit and/or counseling patient: <Kleber Stuart - Last Filed: 06/04/18 09:03> Date of Encounter: 06/04/18 Internal Medicine - H&P: HPI History of present illness: Mr. William is a 77 year old male All Systems PM: A 10-system review of systems was performed and is negative for pertinent findings except as documented above in the HPI. - Constitutional Vitals: Temp Pulse Resp BP Pulse Ox 98.4 F 88 16 128/59 95 06/04/18 07:30 06/04/18 07:30 06/04/18 07:30 06/04/18 07:30 06/04/18 07:30 Internal Med - H&P Results - Labs CBC & Chem 7: 06/04/18 04:47 06/04/18 04:47 Labs: Short CBC 06/04/18 Range/Units 04:47 WBC 10.3 (4.3-11.1) K/mcL Hgb 7.4 L (12.9-16.9) g/dL Hct 23.8 L (37.5-50.1) % Plt Count 316 (140-400) K/mcL Neutrophils # 6.4 (1.6-8.9) K/mcL BMP 06/04/18 04:47 Sodium 134 L Potassium 4.0 Chloride 102 Carbon Dioxide 25 BUN 20 Creatinine 1.21 Glucose 128 H Calcium 10.8 H Liver Function 06/04/18 Range/Units 04:47 Total Bilirubin 0.3 (0.3-1.0) mg/dL AST 16 (13-39) Units/L ALT 21 (7-52) Units/L Alkaline Phosphatase 122 H (34-104) Units/L Albumin 2.9 L (3.5-5.7) g/dL - Assessment and Plan (1) Diabetes Current Visit: No Status: Chronic Qualifiers: Diabetes mellitus type: type 2 Diabetes mellitus care home insulin use: without truck terminal manager use Diabetes mellitus complication status: without complication Qualified Code(s): E11.9 - Type 2 diabetes mellitus without complications (2) Bladder cancer Current Visit: No Status: Chronic Qualifiers: Bladder location: unspecified site Qualified Code(s): C67.9 - Malignant neoplasm of bladder, unspecified (3) DVT prophylaxis Current Visit: No Status: Acute (4) GERD (gastroesophageal reflux disease) Current Visit: No Status: Chronic Qualifiers: Esophagitis presence: without esophagitis Qualified Code(s): K21.9 - Gastro-esophageal reflux disease without esophagitis (5) Depression Current Visit: No Status: Chronic Qualifiers: Depression Type: unspecified Qualified Code(s): F32.9 - Major depressive disorder, single episode, unspecified (6) HTN (hypertension) Current Visit: No Status: Chronic Qualifiers: Hypertension type: unspecified Qualified Code(s): I10 - Essential (primary) hypertension (7) Acute kidney injury Current Visit: No Status: Acute (8) Hypothyroidism Current Visit: No Status: Chronic Qualifiers: Hypothyroidism type: unspecified Qualified Code(s): E03.9 - Hypothyroidism, unspecified (9) Sepsis Current Visit: No Status: Acute Qualifiers: Sepsis type: sepsis due to unspecified organism Qualified Code(s): A41.9 - Sepsis, unspecified organism (10) Urinary tract infection Current Visit: No Status: Acute Qualifiers: Urinary tract infection type: site unspecified Hematuria presence: without hematuria Qualified Code(s): N39.0 - Urinary tract infection, site not specified (11) CAD (coronary artery disease) Current Visit: No Status: Chronic Qualifiers: Coronary Disease-Associated Artery/Lesion type: unspecified vessel or lesion type [place] vs. transplanted heart: unspecified whether [place] or transplanted heart Associated angina: without angina Qualified Code(s): I25.10 - Atherosclerotic heart disease of [place] coronary artery without angina pectoris (12) Anemia Current Visit: No Status: Acute Qualifiers: Anemia type: iron deficiency Iron deficiency anemia type: unspecified iron deficiency Qualified Code(s): D50.9 - Iron deficiency anemia, unspecified (13) Thrush Current Visit: No Status: Acute (14) Hyperkalemia Current Visit: No Status: Chronic - Time Spent With Patient Total time spent is greater than 50% in coordination of care (as documented) at patient's floor/unit and/or counseling patient: - Attending Attestation I performed a history and physical examination the patient and discussed his management with the resident. I reviewed the resident's note and agree with the assessment and plan. In short patient is a 77-year-old male with a past med ica history of bladder cancer status post cystoprostatectomy and right nephroureterectomy in 2017/2017 who was recently discharged from [facility] earlier this month due to generalized weakness in the setting of hypercalcemia. Patient had been recovering at [facility] rehabilitation when he developed worsening fatigue and low-grade fever concerning for UTI/sepsis. Urine cultures grew VRE and patient was transitioned to linazolid. Patient initially improved but then again began spiking fevers and his white count went back up. Additionally patient's calcium level gradually began trending upwards. Given the patients complexity endocrine, was transferred back to [facility] in the event he may need subspecialty support. On arrival patient was afebrile, hemodynamically stable. We will repeat labs work. We will consider CT scan of the abdomen and pelvis with or without contrast depending if kidney function improves for further workup of possible source of infection. Appreciate ID input. Repeat blood cultures were obtained at [facility] prior to transfer. We will continue Linazolid for now.
[2018-06-04 05:13] LABS: Activated Partial Thrombo Time 31.7 Seconds (26.0-36.0)
[2018-06-04 05:19] LABS: Alanine Aminotransferase 21 Units/L (7-52); Albumin 2.9 g/dL (3.5-5.7); Albumin/Globulin Ratio 0.8 (1.1-2.2); Alkaline Phosphatase 122 Units/L (34-104); Aspartate Amino Transferase 16 Units/L (13-39); BUN/Creatinine Ratio 17 (6-26); Bilirubin,Total 0.3 mg/dL (0.3-1.0); Blood Urea Nitrogen 20 mg/dL (8-23); Calcium 10.8 mg/dL (8.6-10.3); Carbon Dioxide 25 mEq/L (23-29); Chloride 102 mEq/L (98-107); Globulin 3.5 g/dL (2.4-3.5); Glucose 128 mg/dL (70-105); Magnesium 1.5 mg/dL (1.6-2.6); Osmolality,Calculated 282 (280-300); Sodium 134 mEq/L (136-145); Total Protein 6.4 g/dL (6.4-8.9); eGFR For Non-African Americans 58 (> 60)
[2018-06-04] MEDS ORDERED: Isovue-370 500 ML BOTTLE IVP ONE (05:25)
[2018-06-04] MEDS ORDERED: Fluticasone Propionate Nasal 50 MCG/SPRAY BOTTLE NS PRN (05:49)
[2018-06-04] MEDS: 0.9 % Sodium Chloride 1,000 ML IVC SCH ×2 (06:27→17:29)
[2018-06-04] MEDS: *HR* Heparin 5,000 UNIT/ML VIAL SQ SCH ×2 (06:30→17:31)
[2018-06-04] MEDS: Insulin LISPRO 300 UNITS/3 ML VIAL SQ SCH ×4 (07:42→20:43)
[2018-06-04] MEDS ORDERED: (Ubidecarenone [Co Q-10] 200 MG) PO SCH (09:00)
--- NOTE | 2018-06-04 09:01 | Infectious Disease Consult ---
Infectious Disease-Consult - Encounter Date/Time Date of Encounter: 06/04/18 Time of Encounter: 10:00 - Data of Consult Patient: new to practice Reason for consult: UTI Consult date: 06/04/18 Requesting Physician: Guille Berrios MD Primary Care Provider: Rich Spivey MD - [facility] HPI: Mr. Lozano is a 77 year old male with a past medical history of metastatic bladder cancer status post cystectomy, CAD, DM, GERd, HTN, kidney stones, CKD, anxiety, and depression. The patient was admitted to the hospital 06/03/18 for UTI. We are consulted for further workup and treatment recommendations for UTI. Briefly, the patient is a 77-year-old male with a past medical history as stated above. The patient had been previously hospitalized here at [facility] from 05/14/18 through 05/21/18 for weakness and hypercalcemia. He was discharged to [facility] rehabilitation facility where he had been working with physical therapy. On 05/31/18, the patient developed fever, tachycardia, con fusion, and myalgias. He was discharged from the rehabilitation floor and admitted to the medical floor. Urine culture was obtained and came back positive for Enterococcus faecalis and VRE. He was started on IV Vanc and Invanz initially and then Zyvox and Invanz once the urine culture resulted. Cultures were obtained 2 sets and were negative. He continued to have some weakness and confusion and fevers so he was transferred here for further evaluation yesterday. Upon arrival, he he was afebrile and hemodynamically stable. He did have leukocytosis with a white blood cell count of 12.1. Serum creatinine was normal at 1.33. Repeat blood cultures were obtained 2. IV Zyvox was restarted. We have been asked to evaluate and make further recommendations. Since admission, the patient has been afebrile hemodynamically stable. His leukocytosis has resolved. Urinalysis was obtained that was positive for small amounts of leukocyte esterase, 5-15 white blood cells, and few bacteria. He is scheduled to undergo a CT of the abdomen and pelvis later today. During my exam today, the patient endorses the history as stated above. Reports some fevers with chills, but denies rigors. Reports some intermittent midsternal chest pain, but denies at this time. Denies shortness of breath, cough, congestion, earache or sore throat. Reports nausea with vomiting a couple of days ago, but none since then. Complains of some intermittent diffuse abdominal pain. States urine output has been good. Reports some mucus in his urine that his surgeon told him is normal. Complains of chronic pain to his back and bilateral shoulders. States he was having some myalgias earlier this morning, b ut that seems to be better as well. Denies oral thrush or new skin lesions. The patient has been staying at a local rehabilitation facility for the past couple of weeks. He denies any tobacco, alcohol, or illicit drug use. - ROS Review of Systems: All systems reviewed and no additional remarkable complaints except as stated. - Results CBC & Chem 7: 06/04/18 04:47 06/04/18 04:47 - Exam Vitals: Temp Pulse Resp BP Pulse Ox 98.4 F 88 16 128/59 95 06/04/18 07:30 06/04/18 07:30 06/04/18 07:30 06/04/18 07:30 06/04/18 07:30 Exam: Head: Atraumatic, normal inspection, normocephalic. Eye: EOMI, PERRLA, no scleral icterus noted. ENT: Mucous membranes moist. No odontogenic infection noted. Neck: Normal inspection, no meningismus. Respiratory: Clear to auscultation. No rales, respiratory distress, rhonchi, or wheezes noted. Cardiovascular: Regular rate and rhythm, S1 and S2 audible. No rubs or gallops. GI: Soft, nondistended, normal bowel sounds. Urostomy noted to the right lower quadrant with clear yellow urine noted. Strength mucus noted around the urostomy site. Extremities: No joint swelling, pedal edema, or tenderness noted. Back: Normal inspection. No vertebral tenderness noted. No CVA tenderness not ed. Neurological: Alert, oriented 3, no focal deficits. Psychiatric: normal affect, normal mood. Skin: Dry, intact, warm. Normal color. No rashes. Lansoprazole [Prevacid] 30 mg PO QPM 03/09/16 [History] Polyethylene Glycol 3350 [MiraLAX] 17 gm PO DAILY 03/09/16 [History] Ubidecarenone [Co Q-10] 200 mg PO QAM 03/09/16 [History] Gabapentin [Neurontin] 300 mg PO TID 04/20/16 [History] Glimepiride [Amaryl] 4 mg PO QAM PRN 04/20/16 [History] Docusate Sodium [Dok] 100 mg PO HS 12/29/16 [History] Levothyroxine [Synthroid] 50 mcg PO QAM 12/29/16 [History] Pravastatin Sodium [Pravachol] 40 mg PO DAILY 12/29/16 [History] Acetaminophen [Pain Relief] 650 mg PO Q6H PRN 02/21/17 [History] Patiromer Calcium Sorbitex [Veltassa] 8.4 gm PO DAILY 04/12/18 [History] Escitalopram [Lexapro] 10 mg PO BID 05/14/18 [History] Fluticasone Propionate Nasal [Flonase] 2 spr NS DAILY PRN 05/14/18 [History] Gluc/Michael-MSM#1/C/Sergio/Carmelo/Bor [Osteo Bi-Flex Caplet] 2 each PO QPM 05/14/18 [History] Magnesium Oxide [Magnesium] 400 mg PO DAILY 05/27/18 [History] Allergy/AdvReac Type Severity Reaction Status Date / Time Penicillins Allergy Numbness Verified 05/27/18 13:06 - Assessment and Plan (1) Sepsis Current Visit: No Status: Acute The patient had 3 sepsis criteria including fever, tachycardia, and leukocytosis. Likely secondary to UTI. Improved. White blood cell count is normal. Tachycardia has resolved. Afebrile overnight. Blood cultures drawn 06/03/18 are pending 2 sets. Qualifiers: Sepsis type: sepsis due to unspecified organism Qualified Code(s): A41.9 - Sepsis, unspecified organism SNOMED Code(s): 33501159 (2) Urinary tract infection Current Visit: No Status: Acute Causative organism: Pansensitive Enterococcus faecalis and VRE (enterococcus fascium). Complicated due to the presence of urostomy. No evidence of pyelonephritis noted on physical exam. CT of the abdomen and pelvis pending completion. Currently on IV Zyvox. Qualifiers: Urinary tract infection type: site unspecified Hematuria presence: without hematuria Qualified Code(s): N39.0 - Urinary tract infection, site not specified SNOMED Code(s): 56577505 (3) Bladder cancer Current Visit: No Status: Chronic Originally diagnosed in March 2016 status post TURBT 03/09/16 followed by a second TURBT with persistent disease 04/20/[address] Menard followed by [facility] and adjuvant BCG 6 weeks completed 07/22/16. Urothelial carcinoma of the right UPJ/ureter with associated other foci of disease distally status post right nephroureterectomy 01/15/[address] Menard. 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 CT of the chest 03/13/18 showed a right upper lobe parenchymal density with about 3 mm of cavitation and a 3.5 mm nodule in the anterior segment of the right upper lobe inferior portion. The patient was not well enough and did not desire to pursue adjuvant chemotherapy. Repeat CT of the chest 05/14/18 as well as a bone scan were negative. Planning to obtain a CT of the abdomen and pelvis with IV contrast to assess for metastatic adenopathy or other hepatic pathology given the patient's recent issues with hypercalcemia. Not currently on any therapy. Follows with Dr. Rodney in the [facility]. Qualifiers: Bladder location: unspecified site Qualified Code(s): C67.9 - Malignant neoplasm of bladder, unspecified SNOMED Code(s): 228183745 (4) Generalized weakness Current Visit: No Status: Chronic Etiology: Likely multifactorial. Infection, general debility, etc. Recommend PT/OT to evaluate and treat. SNOMED Code(s): 66974660 (5) Chronic kidney disease Current Visit: No Status: Chronic Monitor renal function closely and dose adjust antibiotics. Avoid nephrotoxins as able. Qualifiers: Chronic kidney disease stage: stage 3 (moderate) Qualified Code(s): N18.3 - Chronic kidney disease, stage 3 (moderate) SNOMED Code(s): 166172081 (6) GERD (gastroesophageal reflux disease) Current Visit: No Status: Chronic Symptomatic management per the primary team. Appears to be on IV fluconazole for fungal esophagitis per the primary team. Qualifiers: Esophagitis presence: without esophagitis Qualified Code(s): K21.9 - Gastro-esophageal reflux disease without esophagitis SNOMED Code(s): 788391188 (7) HLD (hyperlipidemia) Current Visit: No Status: Chronic Qualifiers: Hyperlipidemia type: unspecified Qualified Code(s): E78.5 - Hyperlipidemia, unspecified SNOMED Code(s): 12709464 (8) HTN (hypertension) Current Visit: No Status: Chronic Qualifiers: Hypertension type: unspecified Qualified Code(s): I10 - Essential (primary) hypertension SNOMED Code(s): 05649539 (9) Solitary left kidney Current Visit: No Status: Chronic Status post nephroureterectomy 01/15/17 secondary to 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 SNOMED Code(s): 193365982 (10) T2DM (type 2 diabetes mellitus) Current Visit: No Status: Chronic Recommend aggressive glucose monitoring and control per the primary team. Qualifiers: Diabetes mellitus termite treater helper insulin use: without prison use Diabetes mellitus complication status: without complication Qualified Code(s): E11.9 - Type 2 diabetes mellitus without complications SNOMED Code(s): 10910215 - Recommendations Recommendations: Await blood cultures to finalize. Await repeat urine culture. Await findings of the CT abdomen and pelvis. Continue Zyvox 600 mg IV every 12 hours. Start cefepime 2 grams IV Q12H. Duration of treatment depends on the clinical picture. Monitor renal function and dose adjust antibiotics. Past Med Surg Social Fam HX - Past Medical History Medical history: cancer, coronary artery disease, diabetes, GERD, hyper lipidemia, hypertension, kidney stones, renal disease, thyroid disease Additional medical history: Bladder Cancer Psychiatric history: anxiety, depression - Past Surgical History Surgical History: cancer surgery, cataract, orthopedic, other, other Additional surgical history: Right kidney removal. bladder removal. lymph node removal. bilateral shoulder repair - Social History Smoking Status: Never smoker Smokeless Tobacco Status: No Alcohol use: none Drug use: none - Family History Father Adopted: No Family Member Ethnicity: Non- Living Status: Hx Family Cardiac Disorders: No Hx Family Respiratory Disorders: No Hx Family Cancer: Yes (prostate ca met.) Hx Family GI Disorders: No Hx Family Endocrine Disorder: No Hx Family Neuromuscular Disorders: No Hx Family Neurologic Disorders: No Hx Family HEENT Disorders: No Hx Family Autoimmune Disorders: No Mother Living Status: Hx Family Cardiac Disorders: Yes Hx Family Cancer: Yes Hx Family Endocrine Disorder: Yes (diabetes) Consult Discharge Plan - Plan Referrals: Rich Spivey MD [Primary Care Provider] - - Attending Attestation I have personally performed a face to face evaluation on this patient. I have reviewed and agree with the care plan. History and Exam by me shows: Assessment and plan: Sepsis Year tract infection with VRE, Enterococcus faecalis. I asked the patient and apparently it was obtained from his urostomy bag. Patient is on Zyvox. Continue Zyvox. We will sign off finish 2 weeks worth.
[2018-06-04] MEDS: Magnesium Oxide 400 MG TABLET PO SCH (10:29)
[2018-06-04] MEDS: Fluconazole 200 MG/100 ML 200 MG/100 ML BAG IVPB SCH (10:30)
[2018-06-04] MEDS: Sodium Ferric Gluconat/Sucrose 125 MG in 0.9 % Sodium Chloride 100 ML IVPB SCH (10:30)
--- NOTE | 2018-06-04 10:37 | Event Note ---
Date of Encounter: 06/04/18 Time of Encounter: 08:45 H&P reviewed. Patient with metastatic bladder cancer status post resection with urostomy, CAD, diabetes, CKD, was initially admitted to [facility] on 05/31 due to sepsis secondary to UTI, anemia, and AoCKD. Urine culture grew VRE and patient was started on Zyvox but developed worsening leukocytosis and fever on 06/03 and was transferred to [facility] for further management. We will obtain CT to rule out pyelonephritis/perinephric abscess, continue Zyvox and obtain ID consult, and gentle hydration for acute on chronic kidney failure. Of note, his hemoglobin is 7.4 with iron less than 10 on 06/02. EGD/Colonoscopy was already done on 10/2017 which were unrevealing. Stool occult also -ve on 05/25/18. Given refractoriness to oral iron supplement, will start IV iron while inpatient and will probably need outpatient hematology follow-up for IV Iron infusion.
[2018-06-04] MEDS: PATIROMER CALCIUM SORBITEX 8.4 GM POWD.PACK PO SCH (11:08)
[2018-06-04] MEDS: Acetaminophen 325 MG TABLET PO PRN (16:36)
[2018-06-04] MEDS: Cefepime HCl 2,000 MG in Water for inj. (sterile) 20 ML 20 ML IVP SCH (17:31)
[2018-06-04] MEDS ORDERED: (Osteo Bi-Flex Caplet) PO SCH (18:00)
[2018-06-05] MEDS: Acetaminophen 325 MG TABLET PO PRN ×4 (00:16→18:30)
[2018-06-05] MEDS: 0.9 % Sodium Chloride 1,000 ML IVC SCH ×2 (03:17→22:34)
[2018-06-05 04:18] LABS: Basophils % 0.3 %; Eosinophils # 0.1 K/mcL (0.0-0.6); Eosinophils % 1.2 %; Hematocrit 21.6 % (37.5-50.1); Hemoglobin 6.7 g/dL (12.9-16.9); Immature Granulocytes % 0.5 % (0-4); Lymphocytes % 18.6 %; Mean Corpuscular Hemoglobin 27.3 pg (28.0-33.3); Mean Corpuscular Volume 88.2 fL (83.0-100.0); Mean Platelet Volume 8.6 fL (9.4-12.4); Monocytes # 0.9 K/mcL (0.0-1.3); Monocytes % 8.3 %; Neutrophils # 7.7 K/mcL (1.6-8.9); Platelet Count 296 K/mcL (140-400); Red Blood Count 2.45 M/mcL (4.19-5.50); Red Cell Distribution Width 12.6 % (11.5-14.5); Segmented Neutrophils % 71.1 %
[2018-06-05 04:34] LABS: BUN/Creatinine Ratio 17 (6-26); Blood Urea Nitrogen 21 mg/dL (8-23); Calcium 10.2 mg/dL (8.6-10.3); Carbon Dioxide 24 mEq/L (23-29); Chloride 101 mEq/L (98-107); Glucose 141 mg/dL (70-105); Magnesium 1.6 mg/dL (1.6-2.6); Osmolality,Calculated 279 (280-300); Potassium 4.3 mEq/L (3.5-5.1); Sodium 132 mEq/L (136-145); eGFR For Non-African Americans 58 (> 60)
[2018-06-05] MEDS: Cefepime HCl 2,000 MG in Water for inj. (sterile) 20 ML 20 ML IVP SCH (06:18)
[2018-06-05] MEDS: *HR* Heparin 5,000 UNIT/ML VIAL SQ SCH ×2 (06:18→16:35)
[2018-06-05] MEDS: Fluconazole 200 MG/100 ML 200 MG/100 ML BAG IVPB SCH (07:55)
[2018-06-05] MEDS: Magnesium Oxide 400 MG TABLET PO SCH (07:56)
[2018-06-05] MEDS: Insulin LISPRO 300 UNITS/3 ML VIAL SQ SCH ×4 (08:08→21:11)
--- NOTE | 2018-06-05 10:44 | Internal Med Progress Note ---
Hospitalist Progress Note - Encounter Date of Encounter: 06/05/18 Time of Encounter: 10:44 - Subjective Interval History: Patient seen and examined this morning at bedside. No acute overnight events. Denies new complaints. Patient still with generalized weakness and feeling tired. Denies any abdominal pain or bowel complaints. Denies any incontinence. - Exam Vitals: Temp Pulse Resp BP Pulse Ox 97.9 F 85 16 132/71 97 06/05/18 10:00 06/05/18 10:00 06/05/18 10:00 06/05/18 10:06/05/18 10:00 Exam: General: In no acute distress. Respiratory exam: CTAB. no accessory muscle use, rales, rhonchi, wheezes Cardiovascular exam: RRR, +S1, +S2. no murmur, gallop, rubs. GI/Abdominal exam: Non-tender, Non-distended, normal bowel sounds, soft, no peritoneal signs. urostomy noted. Extremities exam: no pedal edema, pulses palpable in b/l lower extremities. no calf tenderness Neurological exam: CN II-XII intact, AO X3, B/l LE wasting noted, No sensory deficit. Past pointing with tremors also noted. Skin exam: No skin rash - Assessment and Plan (1) Diabetes Current Visit: No Status: Chronic (2) Bladder cancer Current Visit: No Status: Chronic (3) DVT prophylaxis Current Visit: No Status: Acute (4) GERD (gastroesophageal reflux disease) Current Visit: No Status: Chronic (5) Depression Current Visit: No Status: Chronic (6) HTN (hypertension) Current Visit: No Status: Chronic (7) Acute kidney injury Current Visit: No Status: Acute (8) Hypothyroidism Current Visit: No Status: Chronic (9) Sepsis Current Visit: No Status: Acute (10) Urinary tract infection Current Visit: No Status: Acute (11) CAD (coronary artery disease) Current Visit: No Status: Chronic (12) Anemia Current Visit: No Status: Acute (13) Thrush Current Visit: No Status: Acute (14) Hyperkalemia Current Visit: No Status: Chronic - Summary of Assessment and Plan Summary of Assessment and Plan: Sepsis - resolved - To finish 2 week treatment of Linezolid for VRE UTI per ID. - CT abd/pelvis without evidoence of abscess. Urinary tract infection - as above. Anemia - without acute bleed - EGD/COlonosscopy on 10/2017. stool occult negative recently - low iron. Started on IV iron - Will transfuse PRBC given Hb <7.0 and patient with tiredness and fatigue Diabetes - c/w SSI, accuchecks and diabetic diet Bladder cancer - History of metastatic bladder cancer s/p right nephrectomy, resection of bladder/prostate/penis with urostomy At [place] - Follows with Dr. Rodney Lower extremity weakness with generalized fatigue - Possibly multifactorial with anemia, hypercalcemia, recent hyperkalemia, depression and deconditioning - however per family had recent workup for GBS which was unremarkable. Also with metatstatic bladder cancer with lytic bony lesion on lumbar spine. Had plan for EMG with neurology outpatient. Does have past pointing tremors as well - Will obtain lumbar spinal MRI evaluate for cord compression and get neurology consult for further recommendation. CKD - at baseline - Monitor for now. Avoid nephrotoxic medication. Depression - home SSRI held while on linezolid due to risk of serotonin syndrome Hypothyroidism - c/w home levothyroixin DVT prophylaxis - Heparin SQ - Time Spent with Patient Total time spent is greater than 50% in coordination of care (as documented) at patient's floor/unit and/or counseling patient: Internal Medicine: Result - Labs CBC & Chem 7: 06/05/18 04:00 06/05/18 04:00 Labs: Short CBC 06/05/18 Range/Units 04:00 WBC 10.8 (4.3-11.1) K/mcL Hgb 6.7 L (12.9-16.9) g/dL Hct 21.6 L (37.5-50.1) % Plt Count 296 (140-400) K/mcL Neutrophils # 7.7 (1.6-8.9) K/mcL BMP 06/05/18 04:00 Sodium 132 L Potassium 4.3 Chloride 101 Carbon Dioxide 24 BUN 21 Creatinine 1.22 Glucose 141 H Calcium 10.2 - ABG Interpretation ABG results: PT/INR, D-dimer PT 15.2 Seconds (9.4-12.1) H 06/04/18 04:47 - Impressions Impressions Abdomen/Pelvis CT 06/04/18 08:49 IMPRESSION: No evidence for perinephric abscess. Postsurgical changes from prior urinary bladder resection. Stable mild left-sided hydronephrosis. Postsurgical changes from prior right-sided nephrectomy. Several lytic bony lesions seen within the lumbar spine concerning for bony metastatic disease. D/ / 06/04/2018 10:41:50 Lake Hinojosa MD / [email or web address] Interpreting Provider: Lake Hinojosa MD Consult Discharge Plan - Plan Referrals: Rich Spivey MD [Primary Care Provider] - (1) Diabetes Qualifiers: Diabetes mellitus type: type 2 Diabetes mellitus terminal supervisor insulin use: without detention use Diabetes mellitus complication status: without complication Qualified Code(s): E11.9 - Type 2 diabetes mellitus without complications (2) Bladder cancer Qualifiers: Bladder location: unspecified site Qualified Code(s): C67.9 - Malignant neoplasm of bladder, unspecified (4) GERD (gastroesophageal reflux disease) Qualifiers: Esophagitis presence: without esophagitis Qualified Code(s): K21.9 - Gastro- esophageal reflux disease without esophagitis (5) Depression Qualifiers: Depression Type: unspecified Qualified Code(s): F32.9 - Major depressive disorder, single episode, unspecified (6) HTN (hypertension) Qualifiers: Hypertension type: unspecified Qualified Code(s): I10 - Essential (primary) hypertension (8) Hypothyroidism Qualifiers: Hypothyroidism type: unspecified Qualified Code(s): E03.9 - Hypothyroidism, unspecified (9) Sepsis Qualifiers: Sepsis type: sepsis due to unspecified organism Qualified Code(s): A41.9 - Sepsis, unspecified organism (10) Urinary tract infection Qualifiers: Urinary tract infection type: site unspecified Hematuria presence: without hematuria Qualified Code(s): N39.0 - Urinary tract infection, site not specified (11) CAD (coronary artery disease) Qualifiers: Coronary Disease-Associated Artery/Lesion type: unspecified vessel or lesion type [place] vs. transplanted heart: unspecified whether [place] or transplanted heart Associated angina: without angina Qualified Code(s): I25.10 - Atherosclerotic heart disease of [place] coronary artery without angina pectoris (12) Anemia Qualifiers: Anemia type: iron deficiency Iron deficiency anemia type: unspecified iron deficiency Qualified Code(s): D50.9 - Iron deficiency anemia, unspecified
--- NOTE | 2018-06-05 12:01 | Neurology - Consult Note ---
<Luis Azar - Last Filed: 06/05/18 13:58> Date of Encounter: 06/05/18 Time of Encounter: 12:01 Assessment and Plan (1) Bilateral leg weakness Current Visit: Yes Status: Acute - Patient reports acute on chronic nature of weakness for the past 4 years. - Reports intermittent, waxing and waning nature for weeks at a time. - Distribution on physical exam appears to be proximal large muscle groups. Sensory intact - Etiology unclear, possibly multifactorial. - Differential includes chronic inflammatory demylinating polyneuropathy, deconditioning, UTI, paraneoplastic syndrome, spinal mets, Stenosis - MRI of the brain recently obtained in May of 2018 at previous admission which showed no acute process, no brain mets, and mild white matter changes. - Temporal distribution points away from GBS as it resolves spontaneously in quick succession. 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 - Physical exam shows bilateral muscle weakness most prominent in the proximal lower extremities. Reflexes are present but diminished. - Previously in [facility] - Previous CSF exam when symptoms onset significant for protein 66, glucose 97. - On cefepime for UTI, ID following. Plan - Will add on MRI of cervical and thoracic to lumbar to assess for stenosis or mets - Will order B12, folate, TSH to AM labs. Recommended replacing Magnesium - Will also obtain paraneoplastic antibodies panel - PT has been consulted - Will also start steroids, solu-medrol 60 mg IV q8 hours to assess for improvement. - Will continue to follow, and further recommendations pending results (2) Confusion Current Visit: Yes Status: Acute Per patient is confused and sometimes asking for people who are not present. - Suspect that this is more likely metabolic in nature - Patient has recurrent UTIs secondary to urostomy. - MRI brain as above on 05/16/18 negative for acute process - Recommend treating metabolic causes and workup as above. History of Present Illness Chief complaint: Weakness HPI: Mr. William is a 77 year old male with a PMhx of metastatic bladder cancer s/p right nephrectomy/resected bladder/resected prostate with urostomy, DM, CAD, HTN, HLD, HE, CKD stage III, GERD, hypothyroidism, depression who presented to the hospital from assisted facility with complaint of bilateral lower extremity weakness and concerns for UTI. Neurology was consulted for concerns of increasi ng b/l LE weakness. Patient does have a very significant history of weakness, and states that he has been dealing with this complaint for about 4 years. He and states that he had a kidney stone removed 4 years ago and following this procedure he could not walk. He spontaneously regained strength the next day. Since then, patient states that his weakness waxes and wanes for weeks at a time and resolves spontaneously. This most recent episode has lasted approximately 4 weeks. Of note, he was admitted to [facility] in May 2018 and April 2018 with similar symptoms at that time. He has been previously evaluated by Neurology during those admission and weakness was thought to be secondary to UTI at that time. He was discharged to [facility] and reports that he has been improving but has now been worse since Sunday. He has also had concern for GBS in May 2014 and was transferred to [place]. He states that he again spontaneously resolved. He was told at that time that he may have had a mild GBS but his LP was inconclusive showing mildly high protein and glucose. He was told that because he recovered so quickly it was unlikely that he had a true GBS. On presentation to ED, vitals were wnl. Labs showed Hgb of 6.7, magnesium of 1.6, albumin 2.9. remained within normal limits. Imaging of Abdominal CT did not show source of weakness. Today during exam, patient states that overall he is feeling good but his weakness may be slightly worse than yesterday. He continues to deny any fevers, chills, nausea, vomiting, recent illness, numbness, tingling. His reports he seems more confused but patient does not agree. Past Med Surg Social Fam HX - Past Medical History Medical history: cancer, coronary artery disease, diabetes, GERD, hyperlipidemia, hypertension, kidney stones, renal disease, thyroid disease Additional medical history: Bladder Cancer Psychiatric history: anxiety, depression - Past Surgical History Surgical History: cancer surgery, cataract, orthopedic, other, other Additional surgical history: Right kidney removal. bladder removal. lymph node removal. bilateral shoulder repair - Social History Smoking Status: Never smoker Smokeless Tobacco Status: No Alcohol use: none Drug use: none - Family History Father Adopted: No Family Member Ethnicity: Non- Living Status: Hx Family Cardiac Disorders: No Hx Family Respiratory Disorders: No Hx Family Cancer: Yes (prostate ca met.) Hx Family GI Disorders: No Hx Family Endocrine Disorder: No Hx Family Neuromuscular Disorders: No Hx Family Neurologic Disorders: No Hx Family HEENT Disorders: No Hx Family Autoimmune Disorders: No Mother Living Status: Hx Family Cardiac Disorders: Yes Hx Family Cancer: Yes Hx Family Endocrine Disorder: Yes (diabetes) Medications and Allergies Lansoprazole [Prevacid] 30 mg PO QPM 03/09/16 [History] Polyethylene Glycol 3350 [MiraLAX] 17 gm PO QAM 03/09/16 [History] Ubidecarenone [Co Q-10] 200 mg PO QAM 03/09/16 [History] Gabapentin [Neurontin] 300 mg PO TID 04/20/16 [History] Glimepiride [Amaryl] 4 mg PO QAM PRN 04/20/16 [History] Docusate Sodium [Dok] 100 mg PO HS 12/29/16 [History] Levothyroxine [Synthroid] 50 mcg PO QAM 12/29/16 [History] Pravastatin Sodium [Pravachol] 40 mg PO QAM 12/29/16 [History] Acetaminophen [Pain Relief] 500 mg PO BID PRN 02/21/17 [History] Patiromer Calcium Sorbitex [Veltassa] 8.4 gm PO DAILY 04/12/18 [History] Escitalopram [Lexapro] 10 mg PO BID 05/14/18 [History] Fluticasone Propionate Nasal [Flonase] 2 spr NS DAILY PRN 05/14/18 [History] Gluc/Michael-MSM#1/C/Sergio/Carmelo/Bor [Osteo Bi-Flex Caplet] 2 each PO QPM 05/14/18 [History] Magnesium Oxide [Magnesium] 400 mg PO QAM 05/27/18 [History] Lisinopril 30 mg PO DAILY 06/04/18 [History] Meloxicam 15 mg PO QAM 06/04/18 [History] Multivit-Min/FA/Lycopen/Lutein [Centrum Silver Tablet] 1 tab PO QPM 06/04/18 [History] Vitamin B Complex [Balanced B-50] 1 tab PO QPM 06/04/18 [History] Allergy/AdvReac Type Severity Reaction Status Date / Time Penicillins Allergy Numbness, Verified 06/04/18 19:48 Rash All Systems: The remainder of the systems were reviewed and are negative Review of Systems: - Constitutional: Admits to weakness. Denies fevers, chills, weight loss, generalized fatigue - Head/Neck: Denies HOLLOWAY, neck stiffness - EENT: Denies vision changes/blurriness, rhinorrhea, congestion, sore throat, odynaphagia - CVS: Denies chest pain, palpitations, edema, - Pulm: Denies SOB, cough, sputum, wheezing - GI: Denies abdominal pain, anorexia, nausea, vomiting, diarrhea, constipation, melena - : Denies dysuria, increased frequency - Heme: Denies ease of bleeding or bruising - MSK: Denies joint pain, limited ROM but does state weakness in lower extremities from knee down. - Skin: Denies rashes, ulcers, color changes - Neuro: Denies HOLLOWAY, paresthesias, focal deficits other than as stated above. Physical Examination - Vital Signs Vital Signs: Initial Vital Signs Temp Pulse Resp BP Pulse Ox 97.9 F 88 18 115/68 97 06/04/18 02:45 06/04/18 02:45 06/04/18 02:45 06/04/18 02:45 06/04/18 02:45 - Constitutional General appearance: comfortable - Neurologic Sensorimotor examination: intact Motor examination - right side: 2/5: hip flexors, tibialis Anterior, quadriceps, 3/5: toe extension (EHL), plantarflexion, 4/5: deltoids, biceps, triceps, nail specialist Motor examination - left side: 2/5: hip flexors, quadriceps, tibialis Anterior, 3/5: toe extension (EHL), plantarflexion, 4/5: deltoids, biceps, triceps, nail specialist Detailed sensory examination: intact Reflexes: Biceps: 2+, Patella: 1+, Achilles: 1+ Mental Status Examination: awake, alert, oriented to person, oriented to place, oriented to time, follows commands appropriately, answers questions appropriately, no aphasia Cranial nerve examination: PERRL, EOMI, visual lay intact, sensory to face intact, no facial asymmetry is present, no dysarthria, hearing is intact symmetrically, soft palate elevates bilaterally upon phonation, flexes SCM and trapezius muscles symmetrically with full power, tongue protrudes midline, no atrophy or facial fasiculations present Cerebellar examination: performs finger to nose and heel to riley symmetrically without ataxia Results - Laboratory Findings CBC and BMP: 06/05/18 04:00 06/05/18 04:00 Abnormal lab findings: Abnormal lab results RBC 2.45 M/mcL (4.19-5.50) L 06/05/18 04:00 Hgb 6.7 g/dL (12.9-16.9) L 06/05/18 04:00 Hct 21.6 % (37.5-50.1) L 06/05/18 04:00 MCH 27.3 pg (28.0-33.3) L 06/05/18 04:00 MCHC 31.0 g/dL (31.6-35.5) L 06/05/18 04:00 MPV 8.6 fL (9.4-12.4) L 06/05/18 04:00 PT 15.2 Seconds (9.4-12.1) H 06/04/18 04:47 Sodium 132 mEq/L (136-145) L 06/05/18 04:00 Est GFR (Non-Af Amer) 58 (> 60) L 06/05/18 04:00 Glucose 141 mg/dL (70-105) H 06/05/18 04:00 POC Glucose 289 mg/dL (70-99) H 06/04/18 20:43 279 (280-300) L 06/05/18 04:00 Calcium 10.8 mg/dL (8.6-10.3) H 06/04/18 04:47 Phosphorus 2.0 mg/dL (2.7-4.5) L 06/04/18 04:47 Magnesium 1.5 mg/dL (1.6-2.6) L 06/04/18 04:47 122 Units/L (34-104) H 06/04/18 04:47 2.9 g/dL (3.5-5.7) L 06/04/18 04:47 0.8 (1.1-2.2) L 06/04/18 04:47 Consult Discharge Plan - Plan Referrals: Rich Spivey MD [Primary Care Provider] - <Suzette Soriano I - Last Filed: 06/05/18 15:51> Date of Encounter: 06/05/18 Assessment and Plan (1) Bilateral leg weakness Current Visit: Yes Status: Acute Pt was seen and examined, my medical decision was reviewed with the Resident Physician, I agree with the documented findings, disposition and treatment plan, as described except to the extent set forth below. Considering this patient symptoms at fluctuating weakness in both lower extremities off and on for the past several years, Suspicious of CIDP, whether the same time we do need to exclude any critical stenosis. We will check for any other metabolic abnormalities as well as MRI of the brain will was for more detailed information We will give a trial of Solu-Medrol to see if there is an improvement. Likely would improve with physical therapy evaluation Suzette Soriano MD History of Present Illness HPI: Mr. William is a 77 year old male All Systems: The remainder of the systems were reviewed and are negative Physical Examination - Vital Signs Vital Signs: Initial Vital Signs Temp Pulse Resp BP Pulse Ox 97.9 F 88 18 115/68 97 06/04/18 02:45 06/04/18 02:45 06/04/18 02:45 06/04/18 02:45 06/04/18 02:45 Results - Laboratory Findings CBC and BMP: 06/05/18 04:00 06/05/18 04:00 Abnormal lab findings: Abnormal lab results RBC 2.45 M/mcL (4.19-5.50) L 06/05/18 04:00 Hgb 6.7 g/dL (12.9-16.9) L 06/05/18 04:00 Hct 21.6 % (37.5-50.1) L 06/05/18 04:00 MCH 27.3 pg (28.0-33.3) L 06/05/18 04:00 MCHC 31.0 g/dL (31.6-35.5) L 06/05/18 04:00 MPV 8.6 fL (9.4-12.4) L 06/05/18 04:00 PT 15.2 Seconds (9.4-12.1) H 06/04/18 04:47 Sodium 132 mEq/L (136-145) L 06/05/18 04:00 Est GFR (Non-Af Amer) 58 (> 60) L 06/05/18 04:00 Glucose 141 mg/dL (70-105) H 06/05/18 04:00 POC Glucose 289 mg/dL (70-99) H 06/04/18 20:43 279 (280-300) L 06/05/18 04:00 Calcium 10.8 mg/dL (8.6-10.3) H 06/04/18 04:47 Phosphorus 2.0 mg/dL (2.7-4.5) L 06/04/18 04:47 Magnesium 1.5 mg/dL (1.6-2.6) L 06/04/18 04:47 122 Units/L (34-104) H 06/04/18 04:47 2.9 g/dL (3.5-5.7) L 06/04/18 04:47 0.8 (1.1-2.2) L 06/04/18 04:47
[2018-06-05] MEDS: Nystatin SUSP 5 ML UD.LIQ PO SCH ×3 (12:35→21:10)
--- NOTE | 2018-06-05 13:45 | Infectious Disease Progress No ---
ID Progress Note Date of Encounter: 06/05/18 Time of Encounter: 10:10 - Subjective Subjective: Patient seen and examined. No acute events noted overnight. Patient pleasant and cooperative. States overall he feels well. Complains of pain to the bilateral lower extremities. Denies fevers, chills, or rigors. Denies chest pain, shortness of breath, or cough. Denies nausea, vomiting, or diarrhea. Denies abdominal pain or urinary complaints. States appetite is not very good. Denies oral thrush or new skin lesions. - Objective CBC & Chem 7: 06/05/18 04:00 06/05/18 04:00 - Exam Vitals: Temp Pulse Resp BP Pulse Ox 97.9 F 85 16 132/71 97 06/05/18 10:00 06/05/18 10:00 06/05/18 10:00 06/05/18 10:00 06/05/18 10:00 Exam: Head: Atraumatic, normal inspection, normocephalic. Eye: EOMI, PERRLA, no scleral icterus noted. ENT: Mucous membranes moist. No odontogenic infection noted. Neck: Normal inspection, no meningismus. Respiratory: Clear to auscultation. No rales, respiratory distress, rhonchi, or wheezes noted. Cardiovascular: Regular rate and rhythm, S1 and S2 audible. No rubs or gallops. GI: Soft, nondistended, normal bowel sounds. Urostomy noted to the right lower quadrant with clear yellow urine noted. Mucus noted around the urostomy site. Extremities: No joint swelling, pedal edema, or tenderness noted. Back: Normal inspection. No vertebral tenderness noted. No CVA tenderness noted. Neurological: Alert, oriented 3, no focal deficits. ANDINO x 4. Grasps equal bilaterally. Left LE push/pulls 3/5, Right LE push/pulls 4/5. Psychiatric: normal affect, normal mood. Skin: Dry, intact, warm. Normal color. No rashes. - Assessment and Plan (1) Sepsis Current Visit: No Status: Acute The patient had 3 sepsis criteria including fever, tachycardia, and leukocytosis. Likely secondary to UTI. Improved. White blood cell count is normal. Tachycardia has resolved. Afebrile overnight. Blood cultures drawn 06/03/18 are NGTD 2 sets. Qualifiers: Sepsis type: sepsis due to unspecified organism Qualified Code(s): A41.9 - Sepsis, unspecified organism SNOMED Code(s): 01613995 (2) Urinary tract infection Current Visit: No Status: Acute Causative organism: Pansensitive Enterococcus faecalis and VRE (enterococcus fascium). Complicated due to the presence of urostomy. No evidence of pyelonephritis noted on physical exam. CT of the abdomen and pelvis negative for pyelonephritis or abscess. Currently on IV Zyvox and cefepime. Qualifiers: Urinary tract infection type: site unspecified Hematuria presence: without hematuria Qualified Code(s): N39.0 - Urinary tract infection, site not specified SNOMED Code(s): 73234951 (3) Bladder cancer Current Visit: No Status: Chronic Originally diagnosed in March 2016 status post TURBT 03/09/16 followed by a second TURBT with persistent disease 04/20/[address] Menard followed by [facility] and adjuvant BCG 6 weeks completed 07/22/16. Urothelial carcinoma of the right UPJ/ureter with associated other foci of disease distally status post right nephroureterectomy 01/15/[address] Menard. 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 CT of the chest 03/13/18 showed a right upper lobe parenchymal density with about 3 mm of cavitation and a 3.5 mm nodule in the anterior segment of the right upper lobe inferior portion. The patient was not well enough and did not desire to pursue adjuvant chemotherapy. Repeat CT of the chest 05/14/18 as well as a bone scan were negative. Planning to obtain a CT of the abdomen and pelvis with IV contrast to assess for metastatic adenopathy or other hepatic pathology given the patient's recent issues with hypercalcemia. Not currently on any therapy. Follows with Dr. Rodney in the [facility]. Qualifiers: Bladder location: unspecified site Qualified Code(s): C67.9 - Malignant n eoplasm of bladder, unspecified SNOMED Code(s): 889248046 (4) Generalized weakness Current Visit: No Status: Chronic Etiology: Likely multifactorial. Infection, general debility, etc. Recommend PT/OT to evaluate and treat. Per the patient's , has possible history of [place] and has been following with [facility] [facility]. SNOMED Code(s): 72005823 (5) Chronic kidney disease Current Visit: No Status: Chronic Monitor renal function closely and dose adjust antibiotics. Avoid nephrotoxins as able. Qualifiers: Chronic kidney disease stage: stage 3 (moderate) Qualified Code(s): N18.3 - Chronic kidney disease, stage 3 (moderate) SNOMED Code(s): 620643178 (6) GERD (gastroesophageal reflux disease) Current Visit: No Status: Chronic Symptomatic management per the primary team. Appears to be on IV fluconazole for fungal esophagitis per the primary team. Qualifiers: Esophagitis presence: without esophagitis Qualified Code(s): K21.9 - Gastro-esophageal reflux disease without esophagitis SNOMED Code(s): 813623019 (7) HLD (hyperlipidemia) Current Visit: No Status: Chronic Qualifiers: Hyperlipidemia type: unspecified Qualified Code(s): E78.5 - Hyperlipidemia, unspecified SNOMED Code(s): 46116006 (8) HTN (hypertension) Current Visit: No Status: Chronic Qualifiers: Hypertension type: unspecified Qualified Code(s): I10 - Essential (primary) hypertension SNOMED Code(s): 38609743 (9) Solitary left kidney Current Visit: No Status: Chronic Status post nephroureterectomy 01/15/17 secondary to 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 SNOMED Code(s): 982722355 (10) T2DM (type 2 diabetes mellitus) Current Visit: No Status: Chronic Recommend aggressive glucose monitoring and control per the primary team. Qualifiers: Diabetes mellitus custodial insulin use: without terminal superintendent use Diabetes mellitus complication status: without complication Qualified Code(s): E11.9 - Type 2 diabetes mellitus without complications SNOMED Code(s): 24349767 (11) Hydronephrosis Current Visit: Yes Status: Acute Ct abdomen and pelvis showed mild left hydronephrosis. Consider urology to evaluate. Qualifiers: Hydronephrosis type: unspecified Qualified Code(s): N13.30 - Unspecified hydronephrosis SNOMED Code(s): 57244116 - Recommendations Recommendations: Await blood cultures to finalize. Await repeat urine culture. Consider urology and neurology to evaluate. Continue Zyvox 600 mg every 12 hours, but can switch to PO. Discontinue cefepime. Start levaquin 750mg PO daily. Duration of treatment depends on the clinical picture, but likely a total of 14 days. Monitor renal function and dose adjust antibiotics. No further recommendations from the ID team. We will sign off. Please reconsult if needed. Consult Discharge Plan - Plan Referrals: Rich Spivey MD [Primary Care Provider] -
[2018-06-05] MEDS: methylPREDNISolone 125 MG/2 ML VIAL IVP SCH ×2 (16:33→23:53)
[2018-06-05] MEDS: PATIROMER CALCIUM SORBITEX 8.4 GM POWD.PACK PO SCH (16:33)
[2018-06-05] MEDS ORDERED: 0.9 % Sodium Chloride 250 ML ONE (19:38)
[2018-06-05] MEDS: Linezolid 600 MG TABLET PO SCH (21:10)
[2018-06-06] MEDS: Acetaminophen 325 MG TABLET PO PRN ×2 (01:05→13:15)
[2018-06-06 04:22] LABS: Basophils % 0.1 %; Hematocrit 28.2 % (37.5-50.1); Immature Granulocytes % 0.6 % (0-4); Lymphocytes # 0.7 K/mcL (0.6-4.6); Lymphocytes % 6.9 %; Mean Corpuscular HGB Conc 32.3 g/dL (31.6-35.5); Mean Corpuscular Volume 86.8 fL (83.0-100.0); Mean Platelet Volume 8.5 fL (9.4-12.4); Monocytes % 0.4 %; Neutrophils # 9.7 K/mcL (1.6-8.9); Platelet Count 296 K/mcL (140-400); Red Blood Count 3.25 M/mcL (4.19-5.50); Red Cell Distribution Width 12.8 % (11.5-14.5)
[2018-06-06 04:24] LABS: Hemoglobin 9.1 g/dL (12.9-16.9)
[2018-06-06 04:42] LABS: BUN/Creatinine Ratio 20 (6-26); Blood Urea Nitrogen 20 mg/dL (8-23); Calcium 10.4 mg/dL (8.6-10.3); Carbon Dioxide 20 mEq/L (23-29); Chloride 98 mEq/L (98-107); Glucose 292 mg/dL (70-105); Osmolality,Calculated 281 (280-300); Potassium 4.3 mEq/L (3.5-5.1); Sodium 129 mEq/L (136-145); eGFR For Non-African Americans > 60 (> 60)
[2018-06-06] MEDS: *HR* Heparin 5,000 UNIT/ML VIAL SQ SCH ×2 (05:17→18:13)
[2018-06-06] MEDS: methylPREDNISolone 125 MG/2 ML VIAL IVP SCH (08:29)
[2018-06-06] MEDS: levoFLOXacin 750 MG TABLET PO SCH (08:29)
[2018-06-06] MEDS: Nystatin SUSP 5 ML UD.LIQ PO SCH ×4 (08:29→20:18)
[2018-06-06] MEDS: Magnesium Oxide 400 MG TABLET PO SCH (08:29)
[2018-06-06] MEDS: Insulin LISPRO 300 UNITS/3 ML VIAL SQ SCH ×4 (08:30→21:39)
[2018-06-06] MEDS: Sodium Ferric Gluconat/Sucrose 125 MG in 0.9 % Sodium Chloride 100 ML IVPB SCH (08:40)
[2018-06-06] MEDS: PATIROMER CALCIUM SORBITEX 8.4 GM POWD.PACK PO SCH (08:52)
[2018-06-06] MEDS: Linezolid 600 MG TABLET PO SCH ×2 (08:52→20:18)
--- NOTE | 2018-06-06 08:55 | Neurology Progress Note ---
<Luis Azar - Last Filed: 06/06/18 13:26> Date of Encounter: 06/06/18 Time of Encounter: 11:22 Assessment and Plan (1) Bilateral leg weakness Current Visit: Yes Status: Acute - Patient reports acute on chronic nature of weakness for the past 4 years. - Reports intermittent, waxing and waning nature for weeks at a time. - Distribution on physical exam appears to be proximal large muscle groups. Sensory intact - Etiology at this time is pointing toward likely metastatic disease to cervical, thoracic, lumbar spine. - Alternative Differential includes chronic inflammatory demylinating polyneuropathy, deconditioning, UTI, paraneoplastic syndrome, Stenosis - MRI of the brain recently obtained in May of 2018 at previous admission which showed no acute process, no brain mets, and mild white matter changes. - MRI of spinal column on 06/05 shows diffuse infiltration of all 3 spinal regions with likely metastatic disease. There is no obvious compression however the extent of disease is likely causing some compressive symptoms. - Temporal distribution points away from GBS as it resolves spontaneously in quick succession. 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 - Physical exam shows bilateral muscle weakness most prominent in the proximal lower extremities. Reflexes are present but diminished. - [facility] - Previous CSF exam when symptoms onset significant for protein 66, glucose 97. - On cefepime for UTI, ID following. - B12, folate, TSH wnl. Plan - We did have a discussion with patient and family this morning regarding MRI results. Daughter and both admit to feelings of being overwhelmed and are interested in a hospice approach. This was discussed with the primary team. Cli nically showing little improvement. Given the extent of his disease, there is not much to offer at this time from a neurology approach. We will taper steroids. - paraneoplastic antibodies panel obtained, pending. - PT has been consulted - Will taper steroids with medrol dose pack. Likely little utility. - Neurology will sign off at this time. Thank you for allowing us to participate in Mr. William's care. Please call if further questions. (2) Confusion Current Visit: Yes Status: Acute Per patient is confused and sometimes asking for people who are not present. - Family reports mild worsened from yesterday. - Suspect that this is more likely metabolic in nature and may also be related to cancer. - Patient has recurrent UTIs secondary to urostomy. - MRI brain as above on 05/16/18 negative for acute process - Recommend treating metabolic causes and workup as above. 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 This was noted in the cervical, thoracic, lumbar spine. These results were discussed with family. Likely causing symptoms of weakness. Plan as above, family interested in hospice. Subjective Principal diagnosis: Bilateral leg weakness Interval history: Patient was seen and examined at bedside this morning. He remains confused and is talking about not wanting to meet the new neighbors next door. and daughter are at bedside and results from MRI was discussed. They state that his weakness may be slightly improved as he was able to be up to the chair this morning but confusion seems worse. They are interested in talking to hospice care. Objective - Constitutional Vitals: Temp Pulse Resp BP Pulse Ox 97.8 F 117 15 163/87 97 06/06/18 07:56 06/06/18 07:56 06/06/18 07:56 06/06/18 08:28 06/06/18 07:56 General appearance: Present: A&O X 1, pleasant, no acute distress, answers questions appropriately (some, less than previous. Easily distracted. ) - Head Head exam: Present: atraumatic, normal inspection, normocephalic - Neurological Exam Sensorimotor examination: Present: intact Motor examination - right side: 2/5: hip flexors, tibialis Anterior, quadriceps, 3/5: toe extension (EHL), plantarflexion, 4/5: deltoids, biceps, triceps, educational administration teacher Motor examination - left side: 2/5: hip flexors, quadriceps, tibialis Anterior, 3/5: toe extension (EHL), plantarflexion, 4/5: deltoids, biceps, triceps, educational administration teacher Sensation intact: Present: intact Mental Status Examination: Present: awake, alert, oriented to person, no aphasia. Absent: follows commands appropriately, answers questions appropriately Cranial nerve examination: Present: PERRL, EOMI, visual lay intact, sensory to face intact, no facial asymmetry is present, no dysarthria, hearing is intact symmetrically, soft palate elevates bilaterally upon phonation, flexes SCM and trapezius muscles symmetrically with full power, tongue protrudes midline, no atrophy or facial fasiculations present Cerebellar examination: Present: performs finger to nose and heel to riley symmetrically without ataxia Results - Laboratory Findings CBC and BMP: 06/06/18 04:00 06/06/18 04:00 Abnormal lab findings: Abnormal lab results RBC 3.25 M/mcL (4.19-5.50) L 06/06/18 04:00 Hgb 9.1 g/dL (12.9-16.9) L D 06/06/18 04:00 Hct 28.2 % (37.5-50.1) L 06/06/18 04:00 MCH 27.3 pg (28.0-33.3) L 06/05/18 04:00 MCHC 31.0 g/dL (31.6-35.5) L 06/05/18 04:00 MPV 8.5 fL (9.4-12.4) L 06/06/18 04:00 9.7 K/mcL (1.6-8.9) H 06/06/18 04:00 PT 15.2 Seconds (9.4-12.1) H 06/04/18 04:47 Sodium 129 mEq/L (136-145) L 06/06/18 04:00 Carbon Dioxide 20 mEq/L (23-29) L 06/06/18 04:00 Est GFR (Non-Af Amer) 58 (> 60) L 06/05/18 04:00 Glucose 292 mg/dL (70-105) H 06/06/18 04:00 POC Glucose 275 mg/dL (70-99) H 06/05/18 20:00 279 (280-300) L 06/05/18 04:00 Calcium 10.4 mg/dL (8.6-10.3) H 06/06/18 04:00 Phosphorus 2.0 mg/dL (2.7-4.5) L 06/04/18 04:47 Magnesium 1.5 mg/dL (1.6-2.6) L 06/04/18 04:47 122 Units/L (34-104) H 06/04/18 04:47 2.9 g/dL (3.5-5.7) L 06/04/18 04:47 0.8 (1.1-2.2) L 06/04/18 04:47 22.0 ng/mL (3.0-16.0) H 06/06/18 04:00 TSH 0.125 mcIU/mL (0.340-5.600) L 06/06/18 04:00 Crossmatch See Detail 06/05/18 16:40 Consult Discharge Plan - Plan Referrals: Rich Spivey MD [Primary Care Provider] - Prescriptions: Levofloxacin [Levaquin] 750 mg PO DAILY 13 Days #13 tablet Linezolid [Zyvox] 600 mg PO BID 13 Days #26 tablet <Suzette Soriano I - Last Filed: 06/06/18 15:36> Date of Encounter: 06/06/18 Assessment and Plan (1) Bilateral leg weakness Current Visit: Yes Status: Acute Pt was seen and examined, my medical decision was reviewed with the Resident Physician, I agree with the documented findings, disposition and treatment plan, as described except to the extent set forth below. MRI of the cervical thoracic and lumbar spine were reviewed, significant degenerative changes as well as infiltration of metastatic disease in whole spine. We will taper him off his steroids, no evidence of any cord dysfunction or any cauda equina on lumbar MRI scan. Agree with the family discission of hospice, if any questions feel free to call us back Suzette Soriano MD Objective - Constitutional Vitals: Temp Pulse Resp BP Pulse Ox 97.8 F 117 15 163/87 97 06/06/18 07:56 06/06/18 07:56 06/06/18 07:56 06/06/18 08:28 06/06/18 07:56 Results - Laboratory Findings CBC and BMP: 06/06/18 04:00 06/06/18 04:00 Abnormal lab findings: Abnormal lab results RBC 3.25 M/mcL (4.19-5.50) L 06/06/18 04:00 Hgb 9.1 g/dL (12.9-16.9) L D 06/06/18 04:00 Hct 28.2 % (37.5-50.1) L 06/06/18 04:00 MCH 27.3 pg (28.0-33.3) L 06/05/18 04:00 MCHC 31.0 g/dL (31.6-35.5) L 06/05/18 04:00 MPV 8.5 fL (9.4-12.4) L 06/06/18 04:00 9.7 K/mcL (1.6-8.9) H 06/06/18 04:00 PT 15.2 Seconds (9.4-12.1) H 06/04/18 04:47 Sodium 129 mEq/L (136-145) L 06/06/18 04:00 Carbon Dioxide 20 mEq/L (23-29) L 06/06/18 04:00 Est GFR (Non-Af Amer) 58 (> 60) L 06/05/18 04:00 Glucose 292 mg/dL (70-105) H 06/06/18 04:00 POC Glucose 275 mg/dL (70-99) H 06/05/18 20:00 279 (280-300) L 06/05/18 04:00 Calcium 10.4 mg/dL (8.6-10.3) H 06/06/18 04:00 Phosphorus 2.0 mg/dL (2.7-4.5) L 06/04/18 04:47 Magnesium 1.5 mg/dL (1.6-2.6) L 06/04/18 04:47 122 Units/L (34-104) H 06/04/18 04:47 3.2 g/dL (3.5-5.7) L 06/06/18 04:00 0.8 (1.1-2.2) L 06/04/18 04:47 22.0 ng/mL (3.0-16.0) H 06/06/18 04:00 TSH 0.125 mcIU/mL (0.340-5.600) L 06/06/18 04:00 Crossmatch See Detail 06/05/18 16:40
--- NOTE | 2018-06-06 09:09 | Internal Med Progress Note ---
Hospitalist Progress Note - Encounter Date of Encounter: 06/06/18 Time of Encounter: 08:42 - Subjective Interval History: Patient seen and examined this morning in the center. No acute overnight events. Patient is slightly confused than yesterday. Alert and oriented 2. Denies any new complaints. - Exam Vitals: Temp Pulse Resp BP Pulse Ox 97.8 F 117 15 163/87 97 06/06/18 07:56 06/06/18 07:56 06/06/18 07:56 06/06/18 08:28 06/06/18 07:56 Exam: General: In no acute distress. Respiratory exam: CTAB. no accessory muscle use, rales, rhonchi, wheezes Cardiovascular exam: RRR, +S1, +S2. no murmur, gallop, rubs. GI/Abdominal exam: Non-tender, Non-distended, normal bowel sounds, soft, no peritoneal signs. urostomy noted. Extremities exam: no pes palpdal edema, pulseable in b/l lower extremities. no calf tenderness Neurological exam: CN II-XII intact, AO X2, B/l LE weakness noted, No sensory deficit. Past pointing with tremors also noted. Skin exam: No skin rash - Assessment and Plan (1) Diabetes Current Visit: No Status: Chronic (2) Bladder cancer Current Visit: No Status: Chronic (3) DVT prophylaxis Current Visit: No Status: Acute (4) GERD (gastroesophageal reflux disease) Current Visit: No Status: Chronic (5) Depression Current Visit: No Status: Chronic (6) HTN (hypertension) Current Visit: No Status: Chronic (7) Acute kidney injury Current Visit: No Status: Acute (8) Hypothyroidism Current Visit: No Status: Chronic (9) Sepsis Current Visit: No Status: Acute (10) Urinary tract infection Current Visit: No Status: Acute (11) CAD (coronary artery disease) Current Visit: No Status: Chronic (12) Anemia Current Visit: No Status: Acute (13) Thrush Current Visit: No Status: Acute (14) Hyperkalemia Current Visit: No Status: Chronic - Summary of Assessment and Plan Summary of Assessment and Plan: Sepsis - resolved - To finish 2 week treatment of Linezolid for VRE and Levaquin for UTI per ID. - CT abd/pelvis without evidence of abscess. Urinary tract infection - as above. Anemia - without acute bleed - EGD/Colonoscopy on 10/2017. stool occult negative recently - low iron. c/w IV iron. B12 and folate wnl - s/p PRBC with good response. Diabetes - c/w SSI, accuchecks and diabetic diet - Start Levemir 10 units given elevated BG, likely related to steroid use. Bladder cancer - MRI spine with diffuse metastatic foci - History of high grade bladder cancer s/p right nephrectomy, resection of bladder/prostate/penis with ileal conduit urostomy [facility] - Will consult urology for mild Lt sided hydronephrosis. - Will consult oncology given new metastasis to determine further plan of care. Lower extremity weakness with generalized fatigue - Possibly multifactorial with anemia, hypercalcemia, recent hyperkalemia, depression and deconditioning - Imaging with lytic bony lesion on lumbar spine. No signs of cord compression on MRI - Neurology following. Suspicion of CIDP. Started onsteroid trial. MRI with some spinal canal narrowing in cervical region, foraminag narrowing in cervical and lumbar region. - Pending paraneoplastic abs. - PT/OT consulted. CKD - at baseline - Monitor for now. Avoid nephrotoxic medication. Depression - home SSRI held while on linezolid due to risk of serotonin syndrome HTN - May be related to steroids - Keep prn hydralazine. Hyponatremia - Likely pseudohyponatremia related to Blood glucose - Control BG as above. Hypothyroidism - Low TSH while on levothyroxin. - will decrease dose of levothyroixin DVT prophylaxis - Heparin SQ - Time Spent with Patient Total time spent is greater than 50% in coordination of care (as documented) at patient's floor/unit and/or counseling patient: Internal Medicine: Result - Labs CBC & Chem 7: 06/06/18 04:00 06/06/18 04:00 Labs: Short CBC 06/06/18 Range/Units 04:00 WBC 10.6 (4.3-11.1) K/mcL Hgb 9.1 L D (12.9-16.9) g/dL Hct 28.2 L (37.5-50.1) % Plt Count 296 (140-400) K/mcL Neutrophils # 9.7 H (1.6-8.9) K/mcL BMP 06/06/18 04:00 Sodium 129 L Potassium 4.3 Chloride 98 Carbon Dioxide 20 L BUN 20 Creatinine 1.00 Glucose 292 H Calcium 10.4 H - ABG Interpretation ABG results: PT/INR, D-dimer PT 15.2 Seconds (9.4-12.1) H 06/04/18 04:47 - Impressions Impressions Abdomen/Pelvis CT 06/04/18 08:49 IMPRESSION: No evidence for perinephric abscess. Postsurgical changes from prior urinary bladder resection. Stable mild left-sided hydronephrosis. Postsurgical changes from prior right-sided nephrectomy. Several lytic bony lesions seen within the lumbar spine concerning for bony metastatic disease. D/ / 06/04/2018 10:41:50 Lake Hinojosa MD / [email or web address] Interpreting Provider: Lake Hinojosa MD Lumbar Spine MRI 06/05/18 11:27 IMPRESSION: MRI cervical spine: Diffusely scattered foci of abnormal bone marrow signal in the visualized osseous structures, likely related to diffuse osseous metastasis. No pathologic fracture in the cervical spine. Multilevel degenerative disc disease as described above, exacerbating congenitally narrow cervical spinal canal. Spinal canal narrowing, mild at C4-5, C5-6 and C6-7. Foraminal narrowing, moderate at bilateral C4-5, right C5-6 and right C6-7, mild at left C2-3, right C3-4, left C5-6 and left C6-7. MRI thoracic spine: Diffusely scattered foci of abnormal bone marrow signal throughout the visualized osseous structures, likely related to diffuse osseous metastasis. No pathologic fracture in the thoracic spine. Degenerative disc disease without spinal canal or foraminal stenosis in the thoracic spine. Small bilateral dependent atelectasis, right more than left. MRI lumbar spine: Diffusely scattered foci of abnormal bone marrow signal throughout the visualized osseous structures, likely related to diffuse osseous metastasis. No pathologic fracture in the lumbar spine. Multilevel degenerative disc disease as described above. Spinal canal narrowing, minimal at L4-5. Foraminal narrowing, moderate to severe at left L4-5, mild at left L5-S1. The results were sent to radiology results communication. D/ / Cordell Cutler MD / Cordell Cutler MD Interpreting Provider: Cordell Cutler MD Cervical Spine MRI 06/05/18 11:57 IMPRESSION: MRI cervical spine: Diffusely scattered foci of abnormal bone marrow signal in the visualized osseous structures, likely related to diffuse osseous metastasis. No pathologic fracture in the cervical spine. Multilevel degenerative disc disease as described above, exacerbating congenitally narrow cervical spinal canal. Spinal canal narrowing, mild at C4-5, C5-6 and C6-7. Foraminal narrowing, moderate at bilateral C4-5, right C5-6 and right C6-7, mild at left C2-3, right C3-4, left C5-6 and left C6-7. MRI thoracic spine: Diffusely scattered foci of abnormal bone marrow signal throughout the visualized osseous structures, likely related to diffuse osseous metastasis. No pathologic fracture in the thoracic spine. Degenerative disc disease without spinal canal or foraminal stenosis in the thoracic spine. Small bilateral dependent atelectasis, right more than left. MRI lumbar spine: Diffusely scattered foci of abnormal bone marrow signal throughout the visualized osseous structures, likely related to diffuse osseous metastasis. No pathologic fracture in the lumbar spine. Multilevel degenerative disc disease as described above. Spinal canal narrowing, minimal at L4-5. Foraminal narrowing, moderate to severe at left L4-5, mild at left L5-S1. The results were sent to radiology results communication. D/ / Cordell Cutler MD / Cordell Cutler MD Interpreting Provider: Cordell Cutler MD Thoracic Spine MRI 06/05/18 11:57 IMPRESSION: MRI cervical spine: Diffusely scattered foci of abnormal bone marrow signal in the visualized osseous structures, likely related to diffuse osseous metastasis. No pathologic fracture in the cervical spine. Multilevel degenerative disc disease as described above, exacerbating congenitally narrow cervical spinal canal. Spinal canal narrowing, mild at C4-5, C5-6 and C6-7. Foraminal narrowing, moderate at bilateral C4-5, right C5-6 and right C6-7, mild at left C2-3, right C3-4, left C5-6 and left C6-7. MRI thoracic spine: Diffusely scattered foci of abnormal bone marrow signal throughout the visualized osseous structures, likely related to diffuse osseous metastasis. No pathologic fracture in the thoracic spine. Degenerative disc disease without spinal canal or foraminal stenosis in the thoracic spine. Small bilateral dependent atelectasis, right more than left. MRI lumbar spine: Diffusely scattered foci of abnormal bone marrow signal throughout the visualized osseous structures, likely related to diffuse osseous metastasis. No pathologic fracture in the lumbar spine. Multilevel degenerative disc disease as described above. Spinal canal narrowing, minimal at L4-5. Foraminal narrowing, moderate to severe at left L4-5, mild at left L5-S1. The results were sent to radiology results communication. D/ / Cordell Cutler MD / Cordell Cutler MD Interpreting Provider: Cordell Cutler MD Consult Discharge Plan - Plan Referrals: Rich Spivey MD [Primary Care Provider] - Prescriptions: Levofloxacin [Levaquin] 750 mg PO DAILY 13 Days #13 tablet Linezolid [Zyvox] 600 mg PO BID 13 Days #26 tablet ___ (1) Diabetes Qualifiers: Diabetes mellitus type: type 2 Diabetes mellitus longterm insulin use: without customer energy specialist use Diabetes mellitus complication status: without complication Qualified Code(s): E11.9 - Type 2 diabetes mellitus without complications (2) Bladder cancer Qualifiers: Bladder location: unspecified site Qualified Code(s): C67.9 - Malignant neoplasm of bladder, unspecified (4) GERD (gastroesophageal reflux disease) Qualifiers: Esophagitis presence: without esophagitis Qualified Code(s): K21.9 - Gastro- esophageal reflux disease without esophagitis (5) Depression Qualifiers: Depression Type: unspecified Qualified Code(s): F32.9 - Major depressive disorder, single episode, unspecified (6) HTN (hypertension) Qualifiers: Hypertension type: unspecified Qualified Code(s): I10 - Essential (primary) hypertension (8) Hypothyroidism Qualifiers: Hypothyroidism type: unspecified Qualified Code(s): E03.9 - Hypothyroidism, unspecified (9) Sepsis Qualifiers: Sepsis type: sepsis due to unspecified organism Qualified Code(s): A41.9 - Sepsis, unspecified organism (10) Urinary tract infection Qualifiers: Urinary tract infection type: site unspecified Hematuria presence: without hematuria Qualified Code(s): N39.0 - Urinary tract infection, site not specified (11) CAD (coronary artery disease) Qualifiers: Coronary Disease-Associated Artery/Lesion type: unspecified vessel or lesion type [place] vs. transplanted heart: unspecified whether [place] or transplanted heart Associated angina: without angina Qualified Code(s): I25.10 - Atherosclerotic heart disease of [place] coronary artery without angina pectoris (12) Anemia Qualifiers: Anemia type: iron deficiency Iron deficiency anemia type: unspecified iron deficiency Qualified Code(s): D50.9 - Iron deficiency anemia, unspecified
--- NOTE | 2018-06-06 10:26 | Urology - Consult Note ---
<Carie Castillo N - Last Filed: 06/06/18 10:23> Date of Encounter: 06/06/18 Time of Encounter: 10:00 - Assessment and Plan (1) Urothelial cancer Current Visit: Yes Status: Acute Assessment and plan: Patient is a 77-year-old male who presents with a history of metastatic, high- grade urothelial cancer. Patient is status post radical cystoprostatectomy with ileal conduit urostomy. Patient's renal function is stable and reassuring. CT is suggestive of mild left hydronephrosis, but this appears to be stable. CT is also suggestive of progressive metastatic disease. I discussed options with the patient and his family regarding proceeding with a loopogram to evaluate ureteral patency. Patient and his family wish to proceed. Dr. Hernandez will be in to reevaluate patient later today. (2) UTI (urinary tract infection) due to Enterococcus Current Visit: Yes Status: Acute Assessment and plan: Patient is a 77-year-old male who presents with a urinary tract infection, culture positive for VRE. Patient received multiple IV antibiotics including cefepime and linezolid and is currently receiving Levaquin. Patient has remained afebrile for greater than 24 hours and appears to be improving. (3) Hydronephrosis Current Visit: Yes Status: Acute Assessment and plan: Patient is a 77-year-old male who presents with jesenia, left-sided hydronephrosis. Patient has a solitary kidney, and his renal function is reassuring. Hydronephrosis may be pathologic due to reflux from the urostomy. Patient has elected to proceed with a loopogram in order to evaluate for ureteral obstruction. Qualifiers: Hydronephrosis type: unspecified Qualified Code(s): N13.30 - Unspecified hydronephrosis Urology CN:HPI Consult date: 06/06/18 Reason for consult Urology: Hydronephrosis (left) Requesting physician: Johnna De La O History of present illness: Patient is a 77-year-old male who presents with history of metastatic bladder cancer and mild left hydronephrosis. Patient is well-known to our service, and he is established with Dr. Menard. Patient underwent a right nephroureterectomy in January 2017 for high-grade T1 bladder cancer. Patient's last appointment with Dr. Menard was September 2017 at which time he experienced a recurrence of bladder cancer after his second BCG treatment. Dr. Menard referred patient to Dr. Isbell for a radical cystectomy. Patient underwent cystoprostatectomy in November 2017 with pathology revealing pT3aN1 invasive high-grade urothelial carcinoma and Francis 3+3 adenocarcinoma. Patient also has undergone castration. Patient is currently following with Dr. Rodney for medical oncology care. Patient was recently admitted to [facility] for weakness and hypercalcemia, and he was subsequently discharged to [facility] on 05/21/2018. On 05/31/2017, patient developed fever, tachycardia, and he was readmitted to the hospital. Urine cultures were positive for VRE, and he was transferred to [facility]. Patient underwent a CT of the abdomen and pelvis revealing stable, mild left-sided hydronephrosis as well as evidence of metastatic disease in the lumbar spine, retroperitoneal lymph nodes, and iliac lymph nodes. Currently, patient is sitting upright in chair in no apparent distress with his and daughter at bedside. Patient denies any fever, chills, gross hematuria or flank pain. It is of note, the patient has been pleasantly confused, and his daughter and are both reliable historians. Patient reports a family history positive for prostate c ancer in his father and colon cancer in his mother. 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 Past Med Surg Social Fam HX - Past Medical History Medical history: cancer, coronary artery disease, diabetes, GERD, hyperlipidemia, hypertension, kidney stones, renal disease, thyroid disease Additional medical history: Bladder Cancer Psychiatric history: anxiety, depression - Past Surgical History Surgical History: cancer surgery, cataract, orthopedic, other, other Additional surgical history: Right kidney removal. bladder removal. lymph node removal. bilateral shoulder repair - Social History Smoking Status: Never smoker Smokeless Tobacco Status: No Alcohol use: none Drug use: none - Family History Father Adopted: No Family Member Ethnicity: Non- Living Status: Hx Family Cardiac Disorders: No Hx Family Respiratory Disorders: No Hx Family Cancer: Yes (prostate ca met.) Hx Family GI Disorders: No Hx Family Endocrine Disorder: No Hx Family Neuromuscular Disorders: No Hx Family Neurologic Disorders: No Hx Family HEENT Disorders: No Hx Family Autoimmune Disorders: No Mother Living Status: Hx Family Cardiac Disorders: Yes Hx Family Cancer: Yes Hx Family Endocrine Disorder: Yes (diabetes) Medications and Allergies Lansoprazole [Prevacid] 30 mg PO QPM 03/09/16 [History] Polyethylene Glycol 3350 [MiraLAX] 17 gm PO QAM 03/09/16 [History] Ubidecarenone [Co Q-10] 200 mg PO QAM 03/09/16 [History] Gabapentin [Neurontin] 300 mg PO TID 04/20/16 [History] Glimepiride [Amaryl] 4 mg PO QAM PRN 04/20/16 [History] Docusate Sodium [Dok] 100 mg PO HS 12/29/16 [History] Levothyroxine [Synthroid] 50 mcg PO QAM 12/29/16 [History] Pravastatin Sodium [Pravachol] 40 mg PO QAM 12/29/16 [History] Acetaminophen [Pain Relief] 500 mg PO BID PRN 02/21/17 [History] Patiromer Calcium Sorbitex [Veltassa] 8.4 gm PO DAILY 04/12/18 [History] Escitalopram [Lexapro] 10 mg PO BID 05/14/18 [History] Fluticasone Propionate Nasal [Flonase] 2 spr NS DAILY PRN 05/14/18 [History] Gluc/Michael-MSM#1/C/Sergio/Carmelo/Bor [Osteo Bi-Flex Caplet] 2 each PO QPM 05/14/18 [History] Magnesium Oxide [Magnesium] 400 mg PO QAM 05/27/18 [History] Lisinopril 30 mg PO DAILY 06/04/18 [History] Meloxicam 15 mg PO QAM 06/04/18 [History] Multivit-Min/FA/Lycopen/Lutein [Centrum Silver Tablet] 1 tab PO QPM 06/04/18 [History] Vitamin B Complex [Balanced B-50] 1 tab PO QPM 06/04/18 [History] Levofloxacin [Levaquin] 750 mg PO DAILY 13 Days #13 tablet 06/05/18 [Rx] Linezolid [Zyvox] 600 mg PO BID 13 Days #26 tablet 06/05/18 [Rx] Allergy/AdvReac Type Severity Reaction Status Date / Time Penicillins Allergy Numbness, Verified 06/04/18 19:48 Rash Review of Systems - Constitutional fatigue, no chills, no fever(s) - EENT Nose, mouth and throat: no dizziness, no headache(s) - Cardiovascular no chest pain, no diaphoresis, no dyspnea - Respiratory no cough, no dyspnea - Gastrointestinal no abdominal pain, no nausea, no vomiting - Genitourinary no dysuria, no flank pain, no hematuria - Musculoskeletal back pain, muscle weakness - Integumentary no erythema, no rash - Neurological confusion, no syncope - Psychiatric confusion, no anxiety - Hematologic/Lymphatic easy bruising, lymphadenopathy, no easy bleeding - Allergic/Immunologic no throat swelling, no wheezing Exam Initial Vital Signs Temp Pulse Resp BP Pulse Ox 97.9 F 88 18 115/68 97 06/04/18 02:45 06/04/18 02:45 06/04/18 02:45 06/04/18 02:45 06/04/18 02:45 - General physical appearance Present: no distress, no pain, chronically ill - Eyes Present: PERRL, normal ocular movement - ENT Present: normal nares, no hearing loss, no congestion - Neck Present: no masses, trachea midline - Respiratory Present: normal respiratory effort - Cardiovascular Cardiovascular exam IM: RRR - Abdomen Abdomen: Present: soft, non tender, wound (Urostomy site benign) - Integumentary Present: no rash, no abnormal pigmentation - Neurologic Present: disoriented - Musculoskeletal Present: other (Normal posture) Urology Results - Labs 06/06/18 04:00 06/06/18 04:00 Abnormal lab results RBC 3.25 M/mcL (4.19-5.50) L 06/06/18 04:00 Hgb 9.1 g/dL (12.9-16.9) L D 06/06/18 04:00 Hct 28.2 % (37.5-50.1) L 06/06/18 04:00 MCH 27.3 pg (28.0-33.3) L 06/05/18 04:00 MCHC 31.0 g/dL (31.6-35.5) L 06/05/18 04:00 MPV 8.5 fL (9.4-12.4) L 06/06/18 04:00 9.7 K/mcL (1.6-8.9) H 06/06/18 04:00 PT 15.2 Seconds (9.4-12.1) H 06/04/18 04:47 Sodium 129 mEq/L (136-145) L 06/06/18 04:00 Carbon Dioxide 20 mEq/L (23-29) L 06/06/18 04:00 Est GFR (Non-Af Amer) 58 (> 60) L 06/05/18 04:00 Glucose 292 mg/dL (70-105) H 06/06/18 04:00 POC Glucose 275 mg/dL (70-99) H 06/05/18 20:00 279 (280-300) L 06/05/18 04:00 Calcium 10.4 mg/dL (8.6-10.3) H 06/06/18 04:00 Phosphorus 2.0 mg/dL (2.7-4.5) L 06/04/18 04:47 Magnesium 1.5 mg/dL (1.6-2.6) L 06/04/18 04:47 122 Units/L (34-104) H 06/04/18 04:47 2.9 g/dL (3.5-5.7) L 06/04/18 04:47 0.8 (1.1-2.2) L 06/04/18 04:47 22.0 ng/mL (3.0-16.0) H 06/06/18 04:00 TSH 0.125 mcIU/mL (0.340-5.600) L 06/06/18 04:00 Crossmatch See Detail 06/05/18 16:40 Diabetes panel 06/06/18 Range/Units 04:00 Sodium 129 L (136-145) mEq/L Potassium 4.3 (3.5-5.1) mEq/L Chloride 98 (98-107) mEq/L Carbon Dioxide 20 L (23-29) mEq/L BUN 20 (8-23) mg/dL Creatinine 1.00 (0.70-1.30) mg/dL Glucose 292 H (70-105) mg/dL Calcium 10.4 H (8.6-10.3) mg/dL Thyroid panel 06/06/18 Range/Units 04:00 TSH 0.125 L (0.340-5.600) mcIU/mL Calcium panel 06/06/18 Range/Units 04:00 Calcium 10.4 H (8.6-10.3) mg/dL Pituitary panel 06/06/18 06/06/18 Range/Units 04:00 04:00 Sodium 129 L (136-145) mEq/L Potassium 4.3 (3.5-5.1) mEq/L Chloride 98 (98-107) mEq/L Carbon Dioxide 20 L (23-29) mEq/L BUN 20 (8-23) mg/dL Creatinine 1.00 (0.70-1.30) mg/dL Glucose 292 H (70-105) mg/dL Calcium 10.4 H (8.6-10.3) mg/dL TSH 0.125 L (0.340-5.600) mcIU/mL Adrenal panel 06/06/18 Range/Units 04:00 Sodium 129 L (136-145) mEq/L Potassium 4.3 (3.5-5.1) mEq/L Chloride 98 (98-107) mEq/L Carbon Dioxide 20 L (23-29) mEq/L BUN 20 (8-23) mg/dL Creatinine 1.00 (0.70-1.30) mg/dL Glucose 292 H (70-105) mg/dL Calcium 10.4 H (8.6-10.3) mg/dL All other labs normal. - Imaging CT scan - abdomen: report reviewed, image reviewed CT scan - pelvis: report reviewed, image reviewed Consult Discharge Plan - Plan Referrals: Rich Spivey MD [Primary Care Provider] - Prescriptions: Levofloxacin [Levaquin] 750 mg PO DAILY 13 Days #13 tablet Linezolid [Zyvox] 600 mg PO BID 13 Days #26 tablet <Dre Hernandez - Last Filed: 06/06/18 18:32> Date of Encounter: 06/06/18 - Assessment and Plan (1) Hydronephrosis Current Visit: Yes Status: Acute Assessment and plan: Patient seen and examined by myself. Agree with physician assistants assessment and plan. Patient at this time has been notified of widespread metastatic disease and is planning to enter hospice. I reviewed the loopogram images myself and discussed the results with the patient. The left ureter is patent without evidence of filling defect or follow-up required to suggest tumor. no urologic intervention or followup is required. Qualifiers: Hydronephrosis type: unspecified Qualified Code(s): N13.30 - Unspecified hydronephrosis Exam Initial Vital Signs Temp Pulse Resp BP Pulse Ox 97.9 F 88 18 115/68 97 06/04/18 02:45 06/04/18 02:45 06/04/18 02:45 06/04/18 02:45 06/04/18 02:45 Urology Results - Labs 06/06/18 04:00 06/06/18 04:00 Abnormal lab results RBC 3.25 M/mcL (4.19-5.50) L 06/06/18 04:00 Hgb 9.1 g/dL (12.9-16.9) L D 06/06/18 04:00 Hct 28.2 % (37.5-50.1) L 06/06/18 04:00 MCH 27.3 pg (28.0-33.3) L 06/05/18 04:00 MCHC 31.0 g/dL (31.6-35.5) L 06/05/18 04:00 MPV 8.5 fL (9.4-12.4) L 06/06/18 04:00 9.7 K/mcL (1.6-8.9) H 06/06/18 04:00 PT 15.2 Seconds (9.4-12.1) H 06/04/18 04:47 Sodium 129 mEq/L (136-145) L 06/06/18 04:00 Carbon Dioxide 20 mEq/L (23-29) L 06/06/18 04:00 Est GFR (Non-Af Amer) 58 (> 60) L 06/05/18 04:00 Glucose 292 mg/dL (70-105) H 06/06/18 04:00 POC Glucose 275 mg/dL (70-99) H 06/05/18 20:00 279 (280-300) L 06/05/18 04:00 Calcium 10.4 mg/dL (8.6-10.3) H 06/06/18 04:00 Phosphorus 2.0 mg/dL (2.7-4.5) L 06/04/18 04:47 Magnesium 1.5 mg/dL (1.6-2.6) L 06/04/18 04:47 122 Units/L (34-104) H 06/04/18 04:47 3.2 g/dL (3.5-5.7) L 06/06/18 04:00 0.8 (1.1-2.2) L 06/04/18 04:47 22.0 ng/mL (3.0-16.0) H 06/06/18 04:00 TSH 0.125 mcIU/mL (0.340-5.600) L 06/06/18 04:00 Crossmatch See Detail 06/05/18 16:40 Diabetes panel 06/06/18 Range/Units 04:00 Sodium 129 L (136-145) mEq/L Potassium 4.3 (3.5-5.1) mEq/L Chloride 98 (98-107) mEq/L Carbon Dioxide 20 L (23-29) mEq/L BUN 20 (8-23) mg/dL Creatinine 1.00 (0.70-1.30) mg/dL Glucose 292 H (70-105) mg/dL Calcium 10.4 H (8.6-10.3) mg/dL Albumin 3.2 L (3.5-5.7) g/dL Thyroid panel 06/06/18 Range/Units 04:00 TSH 0.125 L (0.340-5.600) mcIU/mL Calcium panel 06/06/18 Range/Units 04:00 Calcium 10.4 H (8.6-10.3) mg/dL Albumin 3.2 L (3.5-5.7) g/dL Pituitary panel 06/06/18 06/06/18 Range/Units 04:00 04:00 Sodium 129 L (136-145) mEq/L Potassium 4.3 (3.5-5.1) mEq/L Chloride 98 (98-107) mEq/L Carbon Dioxide 20 L (23-29) mEq/L BUN 20 (8-23) mg/dL Creatinine 1.00 (0.70-1.30) mg/dL Glucose 292 H (70-105) mg/dL Calcium 10.4 H (8.6-10.3) mg/dL TSH 0.125 L (0.340-5.600) mcIU/mL Adrenal panel 06/06/18 Range/Units 04:00 Sodium 129 L (136-145) mEq/L Potassium 4.3 (3.5-5.1) mEq/L Chloride 98 (98-107) mEq/L Carbon Dioxide 20 L (23-29) mEq/L BUN 20 (8-23) mg/dL Creatinine 1.00 (0.70-1.30) mg/dL Glucose 292 H (70-105) mg/dL Calcium 10.4 H (8.6-10.3) mg/dL Albumin 3.2 L (3.5-5.7) g/dL All other labs normal.
[2018-06-06] MEDS: 0.9 % Sodium Chloride 1,000 ML IVC SCH (10:50)
[2018-06-06] MEDS ORDERED: Insulin DETEMIR 100 UNIT/ML X5UNITS SQ ONE (11:35)
[2018-06-06 12:26] LABS: Albumin 3.2 g/dL (3.5-5.7)
--- NOTE | 2018-06-06 12:36 | Oncology Inp Consult Note ---
<Fang Ramirez L - Last Filed: 06/06/18 16:37> Date of Encounter: 06/06/18 Time of Encounter: 12:30 Assessment and Plan (1) Bladder cancer Status: Chronic Assessment and plan: Mr. William has evidence of recurrent, metastatic urothelial carcinoma of the bladder with multiple osseous metastasis to cervical/thoracic/lumbar spine complicated by hypercalcemia of malignancy. He has attempted intensive inpatient rehabilitation and unfortunately has further physically declined during this time He is confused and debilitated Patients and patients daughter at bedside state that they have been discussing next steps in patients oncology care and feel as though they do not wish to pursue further aggressive treatment. They are instead interested in pursuing hospice, palliative care consult has been placed. Oncology would support this decision given patients wishes and performance status. We will otherwise plan to sign off, please feel free to reach out with any other needs in future. Qualifiers: Bladder location: unspecified site Qualified Code(s): C67.9 - Malignant neoplasm of bladder, unspecified (2) Hypercalcemia Status: Acute Assessment and plan: Hypercalcemia of malignancy in light of elevated PTHrp at 8.6 S/P Zometa on prior admission for symptomatic hypercalcemia on 05/17/2018 with normalization of Ca New metastatic bone lesions noted to C/T/L MRI Plan: Calcium gradually increasing Corrected calcium today 11.04 Stop calcium supplements Some symptoms may be related to patients worsening hypercalcemia, we will order zometa x1 which may improve patients mentation and quality of time spent with family as he transitions to hospice - Data of Consult Patient: known to practice within the last 3 years Consult date: 06/06/18 Requesting Physician: Johnna De La O MD Primary Care Provider: Rich Spivey MD - Consult Narrative Reason for consult: Recurrent, metastatic bladder cancer History of present illness: Mr. William is a 77 year old male with metastatic recurrent urothelial carcinoma of the bladder. Oncology history as listed below: Initially presented with low grade superficial papillary bladder cancer of the right ureteral orifice s/p TURBT 03/09/16 followed by second TURBT with persistent disease 04/20/[address] Menard. Followed by [facility] and adjuvant BCG x 6 weeks completed 07/21/16. Recurrent T1 high grade urothelial carcinoma by cystoscopy 04/30/17 with LVI about the right bladder wall adjacent to prior right ureteral orifice. No muscularis propria identified; suspicious for lamina propria invasion. Recurrent high grade disease measuring 2 cm in diameter right anterior wall. No muscularis propria identified. Cystoprostatectomy completed 11/22/[address] Isbell at [facility]. Pathology revealed pT3aN1 invasive high-grade urothelial carcinoma. The tumor invaded into the perivesical adipose tissue. All margins were negative. LVI was present. 2 of 10 lymph nodes were involved (right obturator anabel basin involved). CT imaging 03/13/2018 with 0.9 x 1.1 cm posterior segment right upper lobe parenchymal density with about 3 mm cavitation. Alternatively area of presumed cavitation could be dilated bronchiole. A 3.5 mm nodule in the anterior segment right upper lobe inferior portion. Patient was not well enough and did not desire to pursue adjuvant chemotherapy. Most recently he was admitted for symptoms related to hypercalcemia malignancy with elevated PTHrp, given zometa and discharged on 05/21/2018 to [facility]. He has been there since this time. He followed up with Dr. Rodney as an outpatient on 05/27/2018. Review of labs that were still pending at time of d/c to [place] revealed malignancy mediated hypercalcemia. He was planned for staging workup and further treatment discussions on immunotherapy. On 05/31/18, the patient developed fever, tachycardia, confusion, and myalgias. He was discharged from the rehabilitation floor and admitted to the medical floor. Urine culture was obtained and came back positive for Enterococcus faecalis and VRE. He was started on IV Vanc and Invanz initially and then Zyvox and Invanz once the urine culture resulted. He continued to have some BLE weakness and confusion and fevers and was transferred to [facility] for further evaluation. Since admission, he has had ID consultation for ATB recommendations. Neurology has been consulted for BLE weakness/confusion. Urology has been consulted for hydronephrosis, he is planned for loopogram Past Med Surg Social Fam HX - Past Medical History Medical history: cancer, coronary artery disease, diabetes, GERD, hyperlipidemia, hypertension, kidney stones, renal disease, thyroid disease Additional medical history: Bladder Cancer Psychiatric history: anxiety, depression - Past Surgical History Surgical History: cancer surgery, cataract, orthopedic, other, other Additional surgical history: Right kidney removal. bladder removal. lymph node removal. bilateral shoulder repair - Social History Smoking Status: Never smoker Smokeless Tobacco Status: No Alcohol use: none Drug use: none - Family History Father Adopted: No Family Member Ethnicity: Non- Living Status: Hx Family Cardiac Disorders: No Hx Family Respiratory Disorders: No Hx Family Cancer: Yes (prostate ca met.) Hx Family GI Disorders: No Hx Family Endocrine Disorder: No Hx Family Neuromuscular Disorders: No Hx Family Neurologic Disorders: No Hx Family HEENT Disorders: No Hx Family Autoimmune Disorders: No Mother Living Status: Hx Family Cardiac Disorders: Yes Hx Family Cancer: Yes Hx Family Endocrine Disorder: Yes (diabetes) Medications and Allergies Lansoprazole [Prevacid] 30 mg PO QPM 03/09/16 [History] Polyethylene Glycol 3350 [MiraLAX] 17 gm PO QAM 03/09/16 [History] Ubidecarenone [Co Q-10] 200 mg PO QAM 03/09/16 [History] Gabapentin [Neurontin] 300 mg PO TID 04/20/16 [History] Glimepiride [Amaryl] 4 mg PO QAM PRN 04/20/16 [History] Docusate Sodium [Dok] 100 mg PO HS 12/29/16 [History] Levothyroxine [Synthroid] 50 mcg PO QAM 12/29/16 [History] Pravastatin Sodium [Pravachol] 40 mg PO QAM 12/29/16 [History] Acetaminophen [Pain Relief] 500 mg PO BID PRN 02/21/17 [History] Patiromer Calcium Sorbitex [Veltassa] 8.4 gm PO DAILY 04/12/18 [History] Escitalopram [Lexapro] 10 mg PO BID 05/14/18 [History] Fluticasone Propionate Nasal [Flonase] 2 spr NS DAILY PRN 05/14/18 [History] Gluc/Michael-MSM#1/C/Sergio/Carmelo/Bor [Osteo Bi-Flex Caplet] 2 each PO QPM 05/14/18 [History] Magnesium Oxide [Magnesium] 400 mg PO QAM 05/27/18 [History] Lisinopril 30 mg PO DAILY 06/04/18 [History] Meloxicam 15 mg PO QAM 06/04/18 [History] Multivit-Min/FA/Lycopen/Lutein [Centrum Silver Tablet] 1 tab PO QPM 06/04/18 [History] Vitamin B Complex [Balanced B-50] 1 tab PO QPM 06/04/18 [History] Levofloxacin [Levaquin] 750 mg PO DAILY 13 Days #13 tablet 06/05/18 [Rx] Linezolid [Zyvox] 600 mg PO BID 13 Days #26 tablet 06/05/18 [Rx] Allergy/AdvReac Type Severity Reaction Status Date / Time Penicillins Allergy Numbness, Verified 06/04/18 19:48 Rash ROS unobtainable: due to mental status Oncology - Exam - Constitutional General appearance: cooperative, no acute distress, no febrile - Head Head exam: Present: atraumatic - ENT Additional comments: oral thrush - Respiratory Respiratory exam: Present: decreased breath sounds, CTAB. Absent: respiratory distress - Cardiovascular Cardiovascular exam: Present: RRR - GI/Abdominal GI/Abdominal exam: Present: normal bowel sounds, soft. Absent: tenderness - Extremities Exam Extremities exam: Present: normal inspection. Absent: calf tenderness Additional comments: BLE weaknesss 2/5, BUE weakness 4/5 - Neurological Exam Neurological exam: Present: alert, oriented X3, no focal deficits, strengths equal and symetr throughout Additional comments: mental status waxes and wanes, patient having hallucinations at times, makes inappropriate comments at times - Psychiatric Psychiatric exam: Present: normal affect, normal mood - Skin Skin exam: Present: dry, pallor, warm Consult Discharge Plan - Plan Referrals: Rich Spivey MD [Primary Care Provider] - Prescriptions: Levofloxacin [Levaquin] 750 mg PO DAILY 13 Days #13 tablet Linezolid [Zyvox] 600 mg PO BID 13 Days #26 tablet Inpatient Charges Provider: Dr. Amy Rodney <Edilberto Rodney - Last Filed: 06/06/18 21:40> Date of Encounter: 06/06/18 - Data of Consult Requesting Physician: Johnna De La O MD Primary Care Provider: Rich Spivey MD - Attending Attestation I have seen and examined Mr. iWlliam and agree with Ramirez's assessment. Mr. William has developed metastatic urothelial carcinoma with extensive bony metastases, hypercalcemia and resultant debility. He is very weak and fatigued. He is confused intermittently but answering questions appropriately. and daughter at his bedside. Exam is unremarkable with exception of urostomy. Calcium is increasing. We reviewed goals of care and the patient and family have elected to pursue hospice care. This is best for this patient and family. We discussed expectations and prognosis moving forward as well as potential complications along the way. We will administer zometa to address worsening hypercalcemia and calcium supplementation will be stopped. We will otherwise sign off. Please call with concerns or questions. Inpatient Charges Provider: Dr. Amy Rodney Consult - Inpatient Medicare Only: [id number]
[2018-06-06] MEDS ORDERED: Isovue-370 500 ML BOTTLE IVP ONE (12:44)
--- NOTE | 2018-06-06 15:20 | Palliative - Consult Note ---
Date of Encounter: 06/06/18 Time of Encounter: 15:09 - Assessment and Plan (1) Advance care planning Current Visit: Yes Status: Acute Assessment and plan: 30 minutes meeting with Patient, and daughter. Discussed pt's current medical condition, trajectory of illness, goals of care, treatment options. Patient was very coherent at this time, and aware of his prognosis. He was just told earlier today about the bone metastasis from his cancer, and at this point his goal is to return home and be kept [place]. He states that he has been going from hospital to hospital and is not improving, place time to go home and rest. Patient and family as follow home hospice. Discussed hospice care, and hospice philosophy. Patient states he does want to be a DNR CC, and believes that he has DNR form signed already. However new forms will be signed tomorrow if cannot find the form home. Patient lives at home with his and son. his daughter lives in [place]. Family will need SW guidance in finding resources for hands on care. Discussed with primary hospitalist, agreeable with the plan. Called [facility] and referral made. (2) Palliative care encounter Current Visit: Yes Status: Acute (3) Bilateral leg pain Current Visit: Yes Status: Acute Assessment and plan: Patient complains of being always in pain in his legs. Acetaminophen helps, but not nough and not long enough. Will schedule Percocet TID. will give one dose of Zolendronic acid as adjuvant. (4) Bilateral leg weakness Current Visit: Yes Status: Acute Assessment and plan: MRI was negative for cord compression (5) Metastatic cancer to spine Current Visit: Yes Status: Acute (6) Primary ureteral papillary carcinoma Current Visit: No Status: Acute Qualifiers: Laterality: right Qualified Code(s): C66.1 - Malignant neoplasm of right ureter (7) UTI (urinary tract infection) due to Enterococcus Current Visit: Yes Status: Acute Assessment and plan: on Linezolid and cefepime, to be transitioned to PO for a total of 14 days treatment. Palliative-CN HPI - Data of Consult Patient: new to practice Consult date: 06/06/18 Requesting Physician: Johnna De La O MD Primary Care Provider: Rich Spivey MD - Consult Narrative Palliative Care/Comfort Measures: Palliative care Reason for consult: hospice evaluation History of present illness: Mr. William is a 77 year old male with history of metastatic bladder cancer, diabetes, CAD, HTN, HLD, HE, CKD, hypothyroid, GERD, depression. Surgical history of right nephrectomy, resection of bladder/prostate/penis, and urostomy. Patient has been in and out of hospitals and rehab for the last few months. Patient was discharged from [facility] on 05/21/18 to [facility] for rehab, after being admitted and treated for weakness and hypercalcemia. On 05/31/18, he developed fever, tachycardia, confusion, and myalgias. He was discharged from the rehabilitation floor and admitted to the medical floor. Urine culture was obtained and came back positive for Enterococcus faecalis and VRE. He was started on IV antibiotics. He continued to have some weakness and confusion and fevers so he was transferred here for further evaluation. Patient was admitted for sepsis, MRI was performed to r/o spinal compression and revealed diffused vertebral metastasis. Patient was seen by oncology and was not considered well enough for further treatment. Palliative care consult for goal of care discussion and hospice evaluation. CC: Johnna De La O MD - Time Spent with Patient Time: Total time spent is greater than 50% in coordination of care (as documented) at patient's floor/unit and/or counseling patient: Time with patient: 60 minutes Past Med Surg Social Fam HX - Past Medical History Medical history: cancer, coronary artery disease, diabetes, GERD, h yperlipidemia, hypertension, kidney stones, renal disease, thyroid disease Additional medical history: Bladder Cancer Psychiatric history: anxiety, depression - Past Surgical History Surgical History: cancer surgery, cataract, orthopedic, other, other Additional surgical history: Right kidney removal. bladder removal. lymph node removal. bilateral shoulder repair - Social History Smoking Status: Never smoker Smokeless Tobacco Status: No Alcohol use: none Drug use: none - Family History Father Adopted: No Family Member Ethnicity: Non- Living Status: Hx Family Cardiac Disorders: No Hx Family Respiratory Disorders: No Hx Family Cancer: Yes (prostate ca met.) Hx Family GI Disorders: No Hx Family Endocrine Disorder: No Hx Family Neuromuscular Disorders: No Hx Family Neurologic Disorders: No Hx Family HEENT Disorders: No Hx Family Autoimmune Disorders: No Mother Living Status: Hx Family Cardiac Disorders: Yes Hx Family Cancer: Yes Hx Family Endocrine Disorder: Yes (diabetes) Medications and Allergies Lansoprazole [Prevacid] 30 mg PO QPM 03/09/16 [History] Polyethylene Glycol 3350 [MiraLAX] 17 gm PO QAM 03/09/16 [History] Ubidecarenone [Co Q-10] 200 mg PO QAM 03/09/16 [History] Gabapentin [Neurontin] 300 mg PO TID 04/20/16 [History] Glimepiride [Amaryl] 4 mg PO QAM PRN 04/20/16 [History] Docusate Sodium [Dok] 100 mg PO HS 12/29/16 [History] Levothyroxine [Synthroid] 50 mcg PO QAM 12/29/16 [History] Pravastatin Sodium [Pravachol] 40 mg PO QAM 12/29/16 [History] Acetaminophen [Pain Relief] 500 mg PO BID PRN 02/21/17 [History] Patiromer Calcium Sorbitex [Veltassa] 8.4 gm PO DAILY 04/12/18 [History] Escitalopram [Lexapro] 10 mg PO BID 05/14/18 [History] Fluticasone Propionate Nasal [Flonase] 2 spr NS DAILY PRN 05/14/18 [History] Gluc/Michael-MSM#1/C/Sergio/Carmelo/Bor [Osteo Bi-Flex Caplet] 2 each PO QPM 05/14/18 [History] Magnesium Oxide [Magnesium] 400 mg PO QAM 05/27/18 [History] Lisinopril 30 mg PO DAILY 06/04/18 [History] Meloxicam 15 mg PO QAM 06/04/18 [History] Multivit-Min/FA/Lycopen/Lutein [Centrum Silver Tablet] 1 tab PO QPM 06/04/18 [History] Vitamin B Complex [Balanced B-50] 1 tab PO QPM 06/04/18 [History] Levofloxacin [Levaquin] 750 mg PO DAILY 13 Days #13 tablet 06/05/18 [Rx] Linezolid [Zyvox] 600 mg PO BID 13 Days #26 tablet 06/05/18 [Rx] Allergy/AdvReac Type Severity Reaction Status Date / Time Penicillins Allergy Numbness, Verified 06/04/18 19:48 Rash - Constitutional Constitutional ROS PAL: decreased appetite, fatigue - EENT Ears, nose, mouth, throat: dry mouth - Cardiovascular Cardiovascular ROS: no chest pain at rest - Respiratory Respiratory: no dyspnea, no dyspnea on exertion - Gastrointestinal Gastrointestinal: no abdominal pain, no change in bowel habits - Genitourinary Genitourinary ROS male: no flank pain - Musculoskeletal Musculoskeletal ROS IM: muscle weakness Additional comments: bilatera leg pain - Integumentary Additional comments: negative - Neurological Neurological ROS: disequilibrium, weakness - Psychiatric Psychiatric general PM: confusion, depression Palliative Care-Exam - Constitutional Vitals: Temp Pulse Resp BP Pulse Ox 97.8 F 117 15 163/87 97 06/06/18 07:56 06/06/18 07:56 06/06/18 07:56 06/06/18 08:28 06/06/18 07:56 General appearance: Present: cooperative - Head Head Exam: Present: atraumatic - Eye Eye exam: Present: normal appearance - ENT ENT exam: Present: mucous membranes moist - Neck Neck exam: Present: full ROM, normal inspection - Respiratory Respiratory exam: Present: CTAB. Absent: respiratory distress - Cardiovascular Cardiovascular exam: Present: RRR, +S1, +S2 - GI/Abdominal Exam GI/Abdominal exam: Present: soft. Absent: tenderness - Additional comments: R urostomy - Extremities Exam Extremities exam: Present: normal capillary refill, normal inspection. Absent: tenderness - Neurological Exam Neurological exam: Present: alert, CN II-XII intact, oriented X3 - Psychiatric Psychiatric exam: Present: anxious, depressed - Skin Skin exam: Present: intact Internal Medicine - CN: Reslt - Labs CBC & Chem 7: 06/06/18 04:00 06/06/18 04:00 Labs: Short CBC 06/06/18 Range/Units 04:00 WBC 10.6 (4.3-11.1) K/mcL Hgb 9.1 L D (12.9-16.9) g/dL Hct 28.2 L (37.5-50.1) % Plt Count 296 (140-400) K/mcL Neutrophils # 9.7 H (1.6-8.9) K/mcL BMP 06/06/18 04:00 Sodium 129 L Potassium 4.3 Chloride 98 Carbon Dioxide 20 L BUN 20 Creatinine 1.00 Glucose 292 H Calcium 10.4 H Liver Function 06/06/18 Range/Units 04:00 Albumin 3.2 L (3.5-5.7) g/dL - ABG Interpretation ABG results: PT/INR, D-dimer PT 15.2 Seconds (9.4-12.1) H 06/04/18 04:47 - Impressions Impressions Abdomen/Pelvis CT 06/04/18 08:49 IMPRESSION: No evidence for perinephric abscess. Postsurgical changes from prior urinary bladder resection. Stable mild left-sided hydronephrosis. Postsurgical changes from prior right-sided nephrectomy. Several lytic bony lesions seen within the lumbar spine concerning for bony metastatic disease. D/ / 06/04/2018 10:41:50 Lake Hinojosa MD / babatunde Interpreting Provider: Lake Hinojosa MD [place] Loopogram 06/06/18 11:28 FINDINGS/IMPRESSION: A Gonzalez catheter was inserted into the patient's existing right lower abdominal ileostomy. Cystografin was then injected into the ileostomy and multiple fluoroscopic images were obtained. These demonstrate a patent left ureter without any suggestion of stricturing or narrowing. D/ / Guillermo Wynn / Guillermo Wynn Interpreting Provider: Guillermo Wynn Consult Discharge Plan - Plan Referrals: Rich Spivey MD [Primary Care Provider] - Prescriptions: Levofloxacin [Levaquin] 750 mg PO DAILY 13 Days #13 tablet Linezolid [Zyvox] 600 mg PO BID 13 Days #26 tablet Palliative Quality Palliative Quality: Screen for Code Status: Yes, Screen for Goals of Care: Yes, Screen for Pain: Yes, If Pain Regimen Started, Initiate Bowel Regimen: Yes, Screen for Nausea/Vomitting: Yes Code Status: 06/04/18 03:21 Resuscitation Status: Active [RES] Routine Comment: Resuscitation Status: Full Code
[2018-06-06] MEDS ORDERED: Zoledronic Acid (Zometa) 4 MG in 0.9 % Sodium Chloride 100 ML IV ONE (16:44)
[2018-06-06] MEDS: Lisinopril 20 MG TABLET PO SCH (16:45)
[2018-06-06] MEDS ORDERED: *HR* LORazepam 2 MG/ML VIAL IVP PRN (17:53)
[2018-06-06] MEDS ORDERED: Insulin DETEMIR 100 UNIT/ML X5UNITS SQ SCH (21:00)
[2018-06-06] MEDS ORDERED: *HR* OxyCODONE/APAP 5/325 TABLET PO PRN (22:46)
[2018-06-07] MEDS: 0.9 % Sodium Chloride 1,000 ML IVC SCH (02:36)
[2018-06-07] MEDS: *HR* Heparin 5,000 UNIT/ML VIAL SQ SCH (05:18)
[2018-06-07] MEDS ORDERED: Levothyroxine 25 MCG TABLET PO SCH (06:30)
[2018-06-07 07:22] VITALS: BP 153/81
[2018-06-07] MEDS: Lisinopril 20 MG TABLET PO SCH (07:50)
[2018-06-07] MEDS: Nystatin SUSP 5 ML UD.LIQ PO SCH (07:50)
[2018-06-07] MEDS: Magnesium Oxide 400 MG TABLET PO SCH (07:50)
[2018-06-07] MEDS: levoFLOXacin 750 MG TABLET PO SCH (07:51)
[2018-06-07] MEDS: Linezolid 600 MG TABLET PO SCH (07:51)
[2018-06-07] MEDS: Insulin LISPRO 300 UNITS/3 ML VIAL SQ SCH ×2 (07:51→11:52)
[2018-06-07] MEDS ORDERED: Zoledronic Acid (Zometa) 4 MG in 0.9 % Sodium Chloride 100 ML IV ONE (09:00)
[2018-06-07] MEDS ORDERED: methylPREDNISolone 4 MG TABLET PO SCH (09:00)
[2018-06-07] MEDS: PATIROMER CALCIUM SORBITEX 8.4 GM POWD.PACK PO SCH (10:13)
[2018-06-07] MEDS ORDERED: Ondansetron 4 MG/2 ML VIAL IVP ONE (10:26)
[2018-06-07] MEDS ORDERED: OXYCODONE Oral CONC 10 MG/0.5 ML ORAL.SYG SL ONE (10:27)
--- NOTE | 2018-06-07 11:05 | Event Note ---
Date of Encounter: 06/07/18 Time of Encounter: 10:00 Patient significantly worse today, lethargic, not opening eyes, complaining of abdominal upset and leg pains. and daughter present, patient is unable to be discharged home today as his symptoms are worsening and will require medication titration. Given zofran IV once, and Oxycodone 5 mg SL. Will transition to hospice GIP. Family and primary hospitalist Dr. De La O agreeable. [facility] was updated.
--- NOTE | 2018-06-07 11:14 | Discharge Summary ---
- NOTES TO OUTPATIENT PROVIDER Notes to Outpatient Provider: Patient transitioned to inpatient hospice. Orders not resulted at time of discharge: Pending orders 06/05/18 13:56 Paraneoplastic Abs ([facility]) Routine Date of Encounter: 06/07/18 Time of Encounter: 11:07 - Discharge Diagnosis (1) Diabetes Priority: Secondary Status: Chronic Qualifiers: Diabetes mellitus type: type 2 Diabetes mellitus terminal gauger supervisor insulin use: without terminal gauger supervisor use Diabetes mellitus complication status: without complication Qualified Code(s): E11.9 - Type 2 diabetes mellitus without complications (2) Bladder cancer Priority: Secondary Status: Chronic Qualifiers: Bladder location: unspecified site Qualified Code(s): C67.9 - Malignant neoplasm of bladder, unspecified (3) DVT prophylaxis Priority: Secondary Status: Acute (4) GERD (gastroesophageal reflux disease) Priority: Secondary Status: Chronic Qualifiers: Esophagitis presence: without esophagitis Qualified Code(s): K21.9 - Gastro-esophageal reflux disease without esophagitis (5) Depression Priority: Secondary Status: Chronic Qualifiers: Depression Type: unspecified Qualified Code(s): F32.9 - Major depressive disorder, single episode, unspecified (6) HTN (hypertension) Priority: Secondary Status: Chronic Qualifiers: Hypertension type: unspecified Qualified Code(s): I10 - Essential (primary) hypertension (7) Acute kidney injury Priority: Primary Status: Acute (8) Hypothyroidism Priority: Secondary Status: Chronic Qualifiers: Hypothyroidism type: unspecified Qualified Code(s): E03.9 - Hypothyroidism, unspecified (9) Sepsis Priority: Primary Status: Acute Qualifiers: Sepsis type: sepsis due to unspecified organism Qualified Code(s): A41.9 - Sepsis, unspecified organism (10) Urinary tract infection Priority: Primary Status: Acute Qualifiers: Urinary tract infection type: site unspecified Hematuria presence: without hematuria Qualified Code(s): N39.0 - Urinary tract infection, site not specified (11) CAD (coronary artery disease) Priority: Secondary Status: Chronic Qualifiers: Coronary Disease-Associated Artery/Lesion type: unspecified vessel or lesion type [place] vs. transplanted heart: unspecified whether [place] or transplanted heart Associated angina: without angina Qualified Code(s): I25.10 - Atherosclerotic heart disease of [place] coronary artery without angina pectoris (12) Anemia Priority: Secondary Status: Acute Qualifiers: Anemia type: iron deficiency Iron deficiency anemia type: unspecified iron deficiency Qualified Code(s): D50.9 - Iron deficiency anemia, unspecified (13) Thrush Priority: Secondary Status: Acute (14) Hyperkalemia Priority: Secondary Status: Chronic Hospital course: Mr. William is a 77 year old male past medical history of coronary artery disease, CK-MB, hypothyroidism, GERD, depression, metastatic bladder cancer status post nephrectomy and urostomy who came in from rehabilitation with generalized weakness and sepsis from UTI growing VRE. Patient was started on linezolid. Patient had CT abdomen and pelvis with did not show any abscess. Patient had weakness of lower extremity hence neurology was consulted and imaging of lumbar spine was obtained given history of cancer. Patient had some narrowing at cervical spine and some foraminal narrowing along with multiple metastasis lesion throughout the spine. Given the mild hydronephrosis urology was consulted we will obtain loopograms which was unremarkable. Infectious disease and Oncology was consulted as well. Patient was continued on linezolid and Levaquin per ID for 14 days total. Oncology was consulted given the new finding of metastasis. Patient and family opted to pursue hospice care for which palliative care was consulted. Patient has been on and off confused throughout his hospital stay. After discussion with palliative care patient with transfusion to inpatient hospice today. After discussion with family they decided to stop antibiotics given it might be contributing to prolonged his current state which is reasonable. We will discharge the patient inpatient hospice today. Discharge discussed with: patient - Time Spent with Patient Total time spent providing and/or coordinating discharge services: Time spent: Greater than 30 minutes (40) - Discharge Medications Prescriptions: Discontinued Ubidecarenone [Co Q-10] 200 mg PO QAM Polyethylene Glycol 3350 [MiraLAX] 17 gm PO QAM Lansoprazole [Prevacid] 30 mg PO QPM Glimepiride [Amaryl] 4 mg PO QAM PRN PRN Reason: HIGH-BLOOD SUGAR Gabapentin [Neurontin] 300 mg PO TID Levothyroxine [Synthroid] 50 mcg PO QAM Docusate Sodium [Dok] 100 mg PO HS Pravastatin Sodium [Pravachol] 40 mg PO QAM Acetaminophen [Pain Relief] 500 mg PO BID PRN PRN Reason: Pain Patiromer Calcium Sorbitex [Veltassa] 8.4 gm PO DAILY Escitalopram [Lexapro] 10 mg PO BID Fluticasone Propionate Nasal [Flonase] 2 spr NS DAILY PRN PRN Reason: Allergy Symptoms Gluc/Michael-MSM#1/C/Sergio/Carmelo/Bor [Osteo Bi-Flex Caplet] 2 each PO QPM Magnesium Oxide [Magnesium] 400 mg PO QAM Lisinopril 30 mg PO DAILY Meloxicam 15 mg PO QAM Multivit-Min/FA/Lycopen/Lutein [Centrum Silver Tablet] 1 tab PO QPM Vitamin B Complex [Balanced B-50] 1 tab PO QPM Allergies/Adverse Reactions: Allergy/AdvReac Type Severity Reaction Status Date / Time Penicillins Allergy Numbness, Verified 06/04/18 19:48 Rash Date of admission: 06/04/18 02:18 Primary care physician: Rich Spivey MD Consults: 06/04/18 03:37 Consult to Infectious Diseases [CONS] Routine Consulting Provider: Infectious Disease [place] Reason for Consult: urosepsis, urine culture VRE Call Completed: No 06/05/18 11:27 Consult to Neurology [CONS] Routine Consulting Provider: [facility] Reason for Consult: LE weakness Call Completed: Yes 06/05/18 11:32 Consult to Physical Therapy [CONS] Routine Comment: Evaluate, develop and implement POC Reason for Consult: improve mobility, discharge planning Does patient have active BEDREST order?: No Is patient medically & hemodynamically stable?: Yes 06/05/18 16:20 OT [Consult to Occupational Therapy] [CONS] Routine Comment: Evaluate, develop and implement POC Reason for Consult: eval and treat Does patient have active BEDREST order?: No Is patient medically & hemodynamically stable?: Yes 06/06/18 09:03 Consult to Oncology Hematology [CONS] Routine Consulting Provider: Fang Ramirez Reason for Consult: urothelial ca Call Completed: Yes 06/06/18 09:07 Consult to Urology [CONS] Routine Consulting Provider: Urology [facility] Reason for Consult: hydronephrosis Call Completed: Yes 06/06/18 11:53 Consult to Palliative Care [CONS] Routine Comment: Consulting Provider: Palliative Care [place] Reason for Consult: goals of care discussioin Call Completed: Yes Discharging clinician: Johnna De La O - Constitutional Vitals: Temp Pulse Resp BP Pulse Ox 98.3 F 108 18 153/81 97 06/07/18 07:21 06/07/18 07:21 06/07/18 07:21 06/07/18 07:21 06/07/18 07:21 Exam: General: In mild respiratory distress. Respiratory exam: tachpnic. scarttered rales and rhonchi Cardiovascular exam: RRR, +S1, +S2. no murmur, gallop, rubs. GI/Abdominal exam: Non-tender, Non-distended, no peritoneal signs. urostomy n oted. Extremities exam: no pedal edema Neurological exam: AO X2, Skin exam: No skin rash - Patient Status Disposition: Hospice - Medical Facility Condition: Critical - Discharge Instructions Follow Up With: Rich Spivey MD [Primary Care Provider] -
[2018-06-10 08:39] LABS: Purkinje Cell/ANNA IgG Scrn NONE DETECTED (None Detected)
== END 2018-06-07 13:50 | disposition hospice, inpatient (51) | DRG 872 ==
LOC: 3ANU → SUATTDRO 06-04 02:18 → OBSVTOIN 06-04 02:18
PROVIDERS: ADMIT Internal Medicine; ATTEND Internal Medicine